=== PATIENT | male | born 1955 | race Caucasian/White ===

== ENCOUNTER 2022-03-13 10:37 | Emergency (ER) | payer MEDICARE, SELFPAY ==
[2022-03-13 10:45] VITALS: BP 126/87; PULSE 82; RESP 20; TEMP 36.7; O2SAT 94; BMI 26.8
--- NOTE | 2022-03-13 11:04 | CT_ITS ---
WS: [id number] CT head wo con* [id number] REASON FOR EXAM: headache IV CONTRAST ADMINISTERED: None. TOTAL EXAM DLP: 1336.[address] scans at [facility] use at least one of these dose optimization techniques: automat ed exposure control; mA and/or kV adjustment per patient size (includes targeted exams where dose is matched to clinical indication); or iterative reconstruction. FINDINGS: No midline shift or other significant mass effect. No findings of intracranial hemorrhage. No acute brain parenchymal abnormality. Normal CSF spaces. Base of skull and calvarium are intact. CT/CT head wo con* [id number] IMPRESSION: No acute intracranial abnormality. Incidentally noted is mild/moderate mucosal thickening in the ethmoid and sphen oid sinuses compatible with inflammatory sinus disease. Visualized portions of maxillary sinuses are normal. Frontal sinuses are normal. No air-fluid levels.
--- NOTE | 2022-03-13 11:34 | ED_ITS ---
HPI - General Adult General: Chief complaint: Headache Stated complaint: migraines Time Seen by Provider: 03/13/22 11:07 History of Present Illness: Patient is a 66-year-old male with history of migraine with aura presenting to the emergency with complaints of bilateral neck pain and headache with photophobia and nausea/vomiting. Patient tells me since. Triage note reported headache started 2 days ago but patient reported that yesterday when he woke up. Since then, patient has had debilitating headache on both sides of his head. Patient denies any family history of aneurysm. He denies any focal neurological deficit. Patient says that the pain is very similar to his previous episodes of migraine except is mildly more severe. Patient denies any rash, fever/chills, history of IV drug use, diabetes or immunosuppression. Patient has no other focal complaints today including nausea/vomiting, fever/chill, chest pain, shortness of breath, abdominal pain, dysuria/hematuria/polyuria, diarrhea/melena/hematochezia. Onset: yesterday morning Duration:1 day Location: home Severity:moderate Associated symptoms: Reports nausea and vomiting; Deny chest pain, dyspnea, rash or palpitations Review of Systems Const: Denies: fever(s) or chills Eyes: Denies: change in vision ENMT: Denies: mouth pain Card: Denies: chest pain or palpitations Resp: Denies: dyspnea or non-productive cough GI: Reports: nausea and vomiting; Denies: abdominal pain or diarrhea : Denies: dysuria Musc: Denies: extremity pain Skin/Breast: Denies: rash or new lesions Neuro: Reports: other (+headache/photophobia); Denies: weakness in extremities Psych: Reports: other (Normal mood) Efrem/Lymph: Denies: easy bruising PFS ED PFSH: Medical History Migraine Social History Smoking and tobacco status: current every day smoker Alcohol intake: never Substance/Drug Use: never Physical Exam Const: COMMON NORMALS: alert HENMT: COMMON NORMALS: atraumatic HEAD & SCALP: atraumatic MOUTH: moist mucous membranes not abnormal Eye: COMMON NORMALS: EOMs intact bilaterally and conjunctivae normal CONJUNCTIVA: Yes conjunctivae normal Neck/C-Spine: COMMON NORMALS: full ROM and supple OTHER: No meningismu signs No nuchal rigidity Resp: COMMON NORMALS: normal respiratory effort and clear to auscultation bilaterally AUSCULTATION: clear to auscultation bilaterally Cardio: COMMON NORMALS: regular rate RATE: regular rate GI: COMMON NORMALS: Soft to palpation and non-tender PALPATION: Yes Soft to palpation Extremity: COMMON NORMALS: full ROM Neuro: SENSORIUM/ORIENTATION: Yes alert MOTOR EXAM: No Abnormal motor strength present and Other motor observations present (no focal motor deficits) OTHER: Mental status? Awake, alert, and oriented to self, year, month, location, and situation.? Following simple axial and appendicular commands.? Has appropriate fund of knowledge, comprehension, and insight.? Able to recall and understands pertinent aspects of medical history and current treatment status.? ? Language? Speech is fluent without word-finding difficulties.? Intact naming, expression, hr receptionist, and repetition.? ? Cranial nerves? 2,3,4,6: PERRL, EOMI with no nystagmus. 5: Intact sensation to light touch, symmetric? 7: Smile symmetrical, no facial droop.? 8: Hearing grossly intact.? 9,10: Normal palate movement.? 11: Normal strength in trapezius bilaterally 12: Tongue protrudes midline.? ? Motor examination? Normal bulk & tone. Strength as follows (R/L): Delts (5/5), Biceps (5/5), Triceps (5/5), Wrist ext (5/5), hip flexors (5/5), plantarflexors (5/5), dorsiflexors (5/5). ? Sensation? Light Touch: Grossly intact and equal in upper and lower extremities bilaterally? Romberg: Negative.? Distal joint position sense intact ? Coordination? Vktjmk-au-hant-finger movements intact without dysmetria or past-pointing.? Rapid fingertaps: preserved amplitude without decriment.? No tremor, myoclonus or truncal ataxia.? ? Gait/stance? Steady, normal narrow base gait with appropriate arm swing and turning.? Tandem gait without hesitation or loss of balance. Psych: COMMON NORMALS: speech normal SPEECH: Yes normal speech MOOD & AFFECT: Yes euthymic mood Course Vital Signs: Vital signs: Vital Signs Temperature 98.1 F 03/13/22 10:45 Pulse Rate 82 03/13/22 10:45 Respiratory Rate 16 03/13/22 13:05 Blood Pressure 126/87 03/13/22 10:45 Pulse Oximetry 94 03/13/22 10:45 Oxygen Delivery Me thod 03/13/22 10:45 MDM - General Adult Medical Decision Making Patient is a 66-year-old male with history of migraine with aura presenting to the emergency with complaints of bilateral neck pain and headache with photophobia and nausea/vomiting since yesterday morning. Patient has no nuchal rigidity on physical exam. Neurological exam is unremarkable. Patient is AAOx3 with complaints of mild headache currently 5 out of 10. Patient received IVF, Benadryl, Reglan, and tylenol with improvement in pain. He is sleeping comfortable in the the chair, and reports his headache is improved. Given increased CAD, CP CT scan did not show any focal pathologies. I doubt that this is subarachnoid bleed given the fact the patient has not had worse headache of his life, headaches associate with other symptoms, has no family history of aneurysm. Incidental findings of sinus disease discussed extensively with patient. Patient received a copy of the CT report with the documented findings. Patient is instructed to follow up urgently with specialists. Rx: Magnesium oxide, Tylenol, Reglan as needed for headache Disposition: Discharge. Patient counseled regarding diagnostic impression, treatment plan. Patient given ED strict return precautions to return for continuation, worsening, or development of new symptoms. Instructed to f/u w/ PCP regarding symptoms today. Patient verbalized understanding. Lab Data : 03/13/22 11:51 03/13/22 12:[address] 03/13/22 11:04 IMPRESSION: No acute intracranial abnormality. Incidentally noted is mild/moderate mucosal thickening in the ethmoid and sphenoid sinuses compatible with inflammatory sinus disease. Visualized portions of maxillary sinuses are normal. Frontal sinuses are normal. No air-fluid levels. Laboratory Results WBC 5.5 10^3/uL (4.0-10.0) 03/13/22 11:51 RBC 4.75 10^6/uL (4.1-5.3) 03/13/22 11:51 Hgb 14.0 g/dL (11.7-16.6) 03/13/22 11:51 Hct 42.5 % (42.0-52.0) 03/13/22 11:51 MCV 89.5 fl (80-94) 03/13/22 11:51 MCH 29.5 pg (28.0-34.0) 03/13/22 11:51 MCHC 32.9 g/dL (30.0-36.0) 03/13/22 11:51 RDW 12.5 % (12.1-15.1) 03/13/22 11:51 Plt Count 152 10^3/cmm (130-400) 03/13/22 11:51 MPV 10.8 fL (7.4-10.4) H 03/13/22 11:51 Neut % (Auto) 69.8 % 03/13/22 11:51 Lymph % (Auto) 21.2 % 03/13/22 11:51 [place] % (Auto) 7.3 % 03/13/22 11:51 Eos % (Auto) 1.1 % 03/13/22 11:51 Baso % (Auto) 0.4 % 03/13/22 11:51 Neut # (Auto) 3.82 10^3/uL (1.8-7.7) 03/13/22 11:51 Lymph # (Auto) 1.2 10^3/uL (0.8-4.8) 03/13/22 11:51 [place] # (Auto) 0.4 10^3/uL (0.2-0.9) 03/13/22 11:51 Eos # (Auto) 0.1 10^3/uL (0.0-0.8) 03/13/22 11:51 Baso # (Auto) 0.0 10^3/uL (0.0-0.1) 03/13/22 11:51 Nucleated RBC % (auto) 0 % 03/13/22 11:51 Nucleated RBCs # 0.0 /100WBC 03/13/22 11:51 Sodium Cancelled 03/13/22 11:51 Potassium Cancelled 03/13/22 11:51 Chloride Cancelled 03/13/22 11:51 Carbon Dioxide Cancelled 03/13/22 11:51 Anion Gap Cancelled 03/13/22 11:51 BUN Cancelled 03/13/22 11:51 Creatinine Cancelled 03/13/22 11:51 GFR Calculation Cancelled 03/13/22 11:51 Glucose Cancelled 03/13/22 11:51 Calculated Osmolality Cancelled 03/13/22 11:51 Calcium Cancelled 03/13/22 11:51 Imaging Data Other Imaging: Radiologist's impression: Close Head CT (Signed) Wyatt Easton Jr - 03/13/22 Launch?Image [address] [place] [address] CT Scan Report Signed Patient: Jose Starr Unit #: [id number] : 1955 Age/Sex: 66 / M ADM Date: 03/13/22 Loc: ER Room/Bed: Attending Dr: Ordering Provider/Ordering MD: Vasiliy Whittington MD Date of Service: 03/13/22 Procedure(s): CT head wo con* [id number] Accession Number(s): [id number] Report Number: [id number] WS: [id number] CT head wo con* [id number] REASON FOR EXAM: headache IV CONTRAST ADMINISTERED: None. TOTAL EXAM DLP: 1336.[address] scans at [facility] use at least one of these dose optimization techniques: automated exposure control; mA and/or kV adjustment per patient size (includes targeted exams where dose is matched to clinical ind ication); or iterative reconstruction. FINDINGS: No midline shift or other significant mass effect. No findings of intracranial hemorrhage. No acute brain parenchymal abnormality. Normal CSF spaces. Base of skull and calvarium are intact. CT/CT head wo con* [id number] IMPRESSION: No acute intracranial abnormality. ? Incidentally noted is mild/moderate mucosal thickening in the ethmoid and sphenoid sinuses compatible with inflammatory sinus disease. Visualized portions of maxillary sinuses are normal. Frontal sinuses are normal. No air-fluid levels. ? Dictated By: Wyatt Easton Jr, MD Signed By: Wyatt Easton Jr, MD Signed Date/Time: 03/13/22 1153 DD/ 1146 Discharge Plan Discharge Patient Disposition: Home Clinical Impression: Headache Condition: Stable Prescriptions: New acetaminophen 500 mg tablet 500 mg PO Q6H PRN (Reason: pain) 5 Days Qty: 20 0RF Reglan 5 mg tablet 5 mg PO BID PRN (Reason: nausea and vomiting) 5 Days Qty: 10 0RF magnesium oxide 400 mg magnesium capsule 400 mg PO DAILY PRN (Reason: headache) 10 Days Qty: 10 0RF Discharge Orders: Discharge ED (Routine); Ordered 03/13/22 Ordered By: Vasiliy Whittington Discharge Diet: Advance as tolerated Discharge Activity: Increase activity as tolerated Patient Instructions: Acute Headache (ED) Activity Restrictions/Additional Instructions: Please come back to the emergency room you have any fever chills, worsening headache, focal weakness, nausea/vomiting, inability to perform daily activity, or any new concerning complaints. Here's a copy of your CT report: Close Head CT (Signed) Wyatt Easton Jr - 03/13/22 Launch?Image [address] [address] [address] Scan Report Signed Patient: Jose Starr Unit #: [id number] : 1955 Age/Sex: 66 / M ADM Date: 03/13/22 Loc: ER Room/Bed: Attending Dr: Ordering Provider/Ordering MD: Vasiliy Whittington MD Date of Service: 03/13/22 Procedure(s): CT head wo con* [id number] Accession Number(s): [id number] Report Number: [id number] WS: [id number] CT head wo con* [id number] REASON FOR EXAM: headache IV CONTRAST ADMINISTERED: None. TOTAL EXAM DLP: 1336.[address] scans at [facility] use at least one of these dose optimization techniques: automated exposure control; mA and/or kV adjustment per patient size (includes targeted exams where dose is matched to clinical indication); or iterative reconstruction. FINDINGS: No midline shift or other significant mass effect. No findings of intracranial hemorrhage. No acute brain parenchymal abnormality. Normal CSF spaces. Base of skull and calvarium are intact. CT/CT head wo con* [id number] IMPRESSION: No acute intracranial abnormality. ? Incidentally noted is mild/moderate mucosal thickening in the ethmoid and sphenoid sinuses compatible with inflammatory sinus disease. Visualized portions of maxillary sinuses are normal. Frontal sinuses are normal. No air-fluid levels. ? Dictated By: Wyatt Easton Jr, MD Signed By: Wyatt Easton Jr, MD Signed Date/Time: 03/13/22 1153 DD/ 1146 Coding Level of Care Code ED Automated Process Operator for Chg Fwd Exam Comprehensive
[2022-03-13 11:57] LABS: Basophils % 0.4 %; Eosinophils # 0.1 10^3/uL (0.0-0.8); Eosinophils % 1.1 %; Hematocrit 42.5 % (42.0-52.0); Lymphocytes # 1.2 10^3/uL (0.8-4.8); Lymphocytes % 21.2 %; Mean Corpuscular HGB Conc 32.9 g/dL (30.0-36.0); Mean Corpuscular Hemoglobin 29.5 pg (28.0-34.0); Mean Corpuscular Volume 89.5 fl (80-94); Mean Platelet Volume 10.8 fL (7.4-10.4); Monocytes # 0.4 10^3/uL (0.2-0.9); Monocytes % 7.3 %; Neutrophils # 3.82 10^3/uL (1.8-7.7); Neutrophils % 69.8 %; Nucleated Red Blood Cells % 0 %; Platelet Count 152 10^3/cmm (130-400); Red Blood Count 4.75 10^6/uL (4.1-5.3); Red Cell Distribution Width 12.5 % (12.1-15.1); White Blood Count 5.5 10^3/uL (4.0-10.0)
[2022-03-13] MEDS: sodium chloride 0.9% 1,000 ML 999 ML IV (12:09)
[2022-03-13] MEDS: diphenhydrAMINE 50 mg/mL SDV 1mL IVP (12:09)
[2022-03-13] MEDS: acetaminophen 500 mg Tablet PO (12:09)
[2022-03-13] MEDS: metoclopramide 5 mg/mL SDV 2 mL 10 MG IVP (12:09)
[2022-03-13 13:05] VITALS: RESP 16
[2022-03-13] MEDS: morphine 4 mg/mL SDV 1 mL IVP (13:05)
== END 2022-03-13 13:46 | disposition home or self-care (01) ==
PROVIDERS: Emergency Provider Emergency Medicine
DX: G43.909 Migraine, unspecified, not intractable, without status migrainosus (principal)
CPT/HCPCS: 36415; 70450; 85025; 96361; 96374; 96375; 99285; J1200; J2270; J2765; J7030

== ENCOUNTER 2022-07-10 23:35 | Observation (INO) | payer MEDICARE, SELFPAY ==
[2022-07-10 23:36] VITALS: BP 102/74; PULSE 90; RESP 18; TEMP 37.3; O2SAT 92
--- NOTE | 2022-07-10 23:38 | CTR_ITS ---
PROCEDURE INFORMATION: Exam: CT Head Without Contrast Exam date and time: 07/10/2022 11:53 PM Age: 66 years old Clinical indication: Other: Seizure TECHNIQUE: Imaging protocol: Computed tomography of the head without contrast. Radiation optimization: All CT scans at this facility use at least one of these dose optimization techniques: automated exposure control; mA and/or kV adjustment per patient size (includes targeted exams where dose is matched to clinical indication); or iterative reconstruction. COMPARISON: CT head wo con* [id number] 03/13/2022 11:39 AM RADIATION DOSE METRICS: Total DLP (mGy-cm): 1379.52 FINDINGS: Brain: Normal. No hemorrhage. Unremarkable white matter. No mass effect. Cerebral ventricles: No ventriculomegaly. Paranasal sinuses: The left maxillary sinus is nearly completely opacified with air-fluid level and frothy secretions. Moderate right sphenoid sinus mucosal thickening, also with air-fluid level. Mastoid air cells: Visualized mastoid air cells are well aerated. Orbital cavities: Bilateral lens replacements. Bones/joints: Unremarkable. No acute fracture. Soft tissues: Unremarkable. CT/CT head wo con* [id number] IMPRESSION: 1. No acute intracranial abnormality. 2. Acute left maxillary and right sphenoid sinusitis changes.
--- NOTE | 2022-07-10 23:38 | W.ED.SEIZURE ---
HPI - Seizure General: Chief Complaint: Seizure Stated Complaint: seizure Time Seen by Provider: 07/10/22 23:38 Source: patient and EMS Mode of arrival: EMS Limitations: no limitations History of Present Illness: HPI Narrative: 66-year-old male has a history of seizures he takes Tegretol for his seizures he did not take his Tegretol tonight. States has been feeling ill over the last 2 days with some flulike illnesses with body aches along with vomiting and diarrhea he seizure was roughly 1 hour ago in the bathroom. Relatives lasted roughly 2 minutes he was postictal with EMS he is now waking up answering my questions denies any pain anywhere he has had the vomiting diarrhea no known fevers denies cough. Associated symptoms: Deny chest pain, chills or fever(s) Review of Systems Const: Denies: fever(s), chills, body aches or change in appetite Eyes: Denies: blurry vision or eye discomfort ENMT: Denies: throat pain or dental pain Card: Denies: chest pain Resp: Denies: dyspnea GI: Denies: abdominal pain, nausea, vomiting or diarrhea : Denies: dysuria Musc: Denies: neck pain or back pain Skin/Breast: Denies: rash Neuro: Reports: seizure-like activity Psych: Denies: depression Efrem/Lymph: Denies: easy bruising All/Imm: Denies: urticaria PFSH ED PFSH: Medical History Migraine Family History (Updated 07/11/22 @ 02:12 by Kennedy Helm MD) Mother Dementia Social History (Updated 07/11/22 @ 02:12 by Kennedy Helm MD) Smoking and tobacco status: current every day smoker Alcohol intake: never Substance/Drug Use: never Physical Exam Const: COMMON NORMALS: no acute distress, patient oriented x3 and healthy appearing HENMT: COMMON NORMALS: normocephalic and atraumatic HEAD & SCALP: normocephalic and atraumatic Eye: COMMON NORMALS: Equal, round and reactive pupils present and EOMs intact bilaterally PUPIL: Yes Equal, round and reactive pupils present Neck/C-Spine: COMMON NORMALS: full ROM and supple Chest: COMMONS NORMALS: normal inspection of the chest and normal palpation of entire chest wall Resp: COMMON NORMALS: normal respiratory effort, No retractions, No use of accessory muscles and clear to auscultation bilaterally AUSCULTATION: clear to auscultation bilaterally Cardio: COMMON NORMALS: regular rate, regular rhythm and No murmurs present (Cardio) RATE: regular rate RHYTHM: regular rhythm GI: COMMON NORMALS: Normal to inspection, nondistended, normoactive bowel sounds present, Soft to palpation, non-tender and no masses PALPATION: Yes Soft to palpation Extremity: COMMON NORMALS: normal to inspection and full ROM Neuro: COMMON NORMALS: patient oriented x3, moves all extremities and no focal motor deficits Psych: COMMON NORMALS: mental status grossly normal, Normal thought process present and cooperative THOUGHT PROCESS: Normal thought process present Skin: COMMON NORMALS: no rashes or lesions noted and no wounds GENERAL SKIN EXAM: no rashes or lesions noted Course Vital Signs: Vital signs: Vital Signs Temperature 99.2 F 07/10/22 23:36 Pulse Rate 81 07/11/22 02:00 Respiratory Rate 14 07/11/22 02:00 Blood Pressure 122/75 07/11/22 02:00 Pulse Oximetry 95 07/11/22 02:00 Oxygen Delivery Me thod 07/11/22 02:00 Oxygen Flow Rate 2 07/11/22 02:00 MDM - Seizure MDM Narrative Medical decision making narrative: Your along withPatient presents here with like illness x-ray shows bilateral pneumonia as well. Patient had a seizure at home he did have another seizure here as well spoke to the hospitalist will admit at this time patient has been stable while here. Lab Data 07/10/22 23:30 07/10/22 23:30 Labs: Radiology Impressions Head CT 07/10/22 23:38 IMPRESSION: 1. No acute intracranial abnormality. 2. Acute left maxillary and right sphenoid sinusitis changes. Chest X-Ray 07/10/22 23:39 IMPRESSION: 1. Bilateral lower lobe infiltrates, suspicious for pneumonia. 2. Large hiatal hernia. 3. Mild cardiomegaly. Laboratory Results WBC 8.4 10^3/uL (4.0-10.0) 07/10/22 23:30 RBC 5.11 10^6/uL (4.1-5.3) 07/10/22 23:30 Hgb 15.3 g/dL (11.7-16.6) 07/10/22 23: Hct 47.3 % (42.0-52.0) 07/10/22: MCV 92.6 fl (80-94) 07/10/22: MCH 29.9 pg (28.0-34.0) 07/10/22 MCHC 32.3 g/dL (30.0-36.0) 07/10/22 RDW 12.6 % (12.1-15.1) 07/10/22 Plt Count 199 10^3/cmm (130-400) 07/10/22: MPV 10.9 fL (7.4-10.4) H 07/10/22: Neut % (Auto) 89.2 % 07/10/22: Lymph % (Auto) 4.7 % 07/10/22: [place] % (Auto) 5.0 % 07/10/22: Eos % (Auto) 0.5 % 07/10/22 Baso % (Auto) 0.2 % 07/10/22 Neut # (Auto) 7.46 10^3/uL (1.8-7.7) 07/10/22: Lymph # (Auto) 0.4 10^3/uL (0.8-4.8) L 07/10/22: [place] # (Auto) 0.4 10^3/uL (0.2-0.9) 07/10/22: Eos # (Auto) 0.0 10^3/uL (0.0-0.8) 07/10/22: Baso # (Auto) 0.0 10^3/uL (0.0-0.1) 07/10/22 Nucleated RBC % (auto) 0 % 07/10/22 Nucleated RBCs # 0.0 /100WBC 07/10/22: Sodium 136 mmol/L (136-145) 07/10/22: Potassium 4.5 mmol/L (3.5-5.1) 07/10/22: Chloride 100 mmol/L (98-107) 01/13/23 23:30 Carbon Dioxide 23 mmol/L (22-29) 07/10/22 23:30 Anion Gap 17.5 (5-19) 07/10/22 23:30 BUN 17 mg/dL (8-23) 07/10/22 23:30 Creatinine 1.3 mg/dL (0.7-1.2) H 07/10/22 23:30 GFR Calculation 55.4 mL/min (90-130) L 07/10/22 23:30 Glucose 130 mg/dL (65-115) H 07/10/22 23:30 Calculated Osmolality 285 mOsm/kg (285-295) 07/10/22 23:30 Calcium 8.9 mg/dL (8.5-10.5) 07/10/22 23:30 Total Bilirubin 0.6 mg/dL (0.15-1.2) 07/10/22 23:30 AST 23 U/L (0-40) 07/10/22 23:30 ALT 16 U/L (0-41) 07/10/22 23:30 Alkaline Phosphatase 81 U/L (40-130) 07/10/22 23:30 Total Protein 8.9 g/dL (6.6-8.7) H 07/10/22 23:30 Albumin 4.8 g/dL (3.5-5.2) 07/10/22 23:30 Globulin 4.1 g/dL (1.3-4.6) 07/10/22 23:30 Influenza Type A Ag negative (Negative) 07/11/22 00:05 Influenza Type B Ag negative (Negative) 07/11/22 00:05 SARS-CoV-2 Ag (Rapid) negative (Negative) 07/11/22 00:05 EKG Data EKG 1: Attestation: I personally reviewed and interpreted this EKG as follows: EKG interpretation date: 07/10/22 EKG interpretation time: 23:42 Interpretation: nsr hr [address] or t wave abnormalities qrs 93 qtc 361 Discharge Plan Discharge Patient Disposition: Admitted As Inpatient Admit Provider: Kennedy Helm Clinical Impression: Generalized seizure, Diarrhea, Pneumonia Condition: Stable Coding Level of Care Code ED [place] for Chg Fwd Exam Comprehensive
--- NOTE | 2022-07-10 23:39 | XRR_ITS ---
PROCEDURE INFORMATION: Exam: XR Chest Exam date and time: 07/10/2022 11:51 PM Age: 66 years old Clinical indication: Other: Seizure TECHNIQUE: Imaging protocol: Radiologic exam of the chest. Views: 1 view. COMPARISON: No relevant prior studies available. FINDINGS: Lungs: Bilateral lower lobe infiltrates. Pleural spaces: Unremarkable. No pleural effusion. No pneumothorax. Heart/Mediastinum: Large hiatal hernia. Mild cardiomegaly. Bones/joints: Unremarkable. XR/XR chest 1V portable [id number] IMPRESSION: 1. Bilateral lower lobe infiltrates, suspicious for pneumonia. 2. Large hiatal hernia. 3. Mild cardiomegaly.
[2022-07-10 23:47] LABS: Basophils % 0.2 %; Eosinophils % 0.5 %; Hematocrit 47.3 % (42.0-52.0); Hemoglobin 15.3 g/dL (11.7-16.6); Lymphocytes # 0.4 10^3/uL (0.8-4.8); Lymphocytes % 4.7 %; Mean Corpuscular HGB Conc 32.3 g/dL (30.0-36.0); Mean Corpuscular Hemoglobin 29.9 pg (28.0-34.0); Mean Corpuscular Volume 92.6 fl (80-94); Mean Platelet Volume 10.9 fL (7.4-10.4); Monocytes # 0.4 10^3/uL (0.2-0.9); Neutrophils # 7.46 10^3/uL (1.8-7.7); Neutrophils % 89.2 %; Nucleated Red Blood Cells % 0 %; Platelet Count 199 10^3/cmm (130-400); Red Blood Count 5.11 10^6/uL (4.1-5.3); Red Cell Distribution Width 12.6 % (12.1-15.1); White Blood Count 8.4 10^3/uL (4.0-10.0)
[2022-07-11] VITALS (55 sets, daily range): BP systolic 86–132; BP diastolic 54–81; PULSE 59–90; RESP 6–32; TEMP 36.8–38.4; O2SAT 72–98; BMI 27.6
[2022-07-11] MEDS: sodium chloride 0.9% 1,000 ML 999 ML IV ×2 (00:05→01:30)
[2022-07-11] MEDS: ondansetron 2 mg/ML SDV 2 mL 4 MG IVP (00:05)
[2022-07-11] MEDS: carBAMazepine 200 mg Tablet PO (00:05)
[2022-07-11 00:09] LABS: Alanine Aminotransferase 16 U/L (0-41); Albumin Level 4.8 g/dL (3.5-5.2); Alkaline Phosphatase 81 U/L (40-130); Anion Gap 17.5 (5-19); Aspartate Amino Transferase 23 U/L (0-40); Blood Urea Nitrogen 17 mg/dL (8-23); Calcium 8.9 mg/dL (8.5-10.5); Carbon Dioxide 23 mmol/L (22-29); Chloride 100 mmol/L (98-107); Globulin 4.1 g/dL (1.3-4.6); Glomerular Filtration Rate 55.4 mL/min (90-130); Glucose 130 mg/dL (65-115); Osmolality Calculated 285 mOsm/kg (285-295); Potassium 4.5 mmol/L (3.5-5.1); Sodium 136 mmol/L (136-145); Total Bilirubin 0.6 mg/dL (0.15-1.2); Total Protein 8.9 g/dL (6.6-8.7)
[2022-07-11 00:39] LABS: SARS Covid-2 Antigen negative (Negative)
[2022-07-11 00:40] LABS: Influenza A by IFA negative (Negative); Influenza B by IFA negative (Negative)
--- NOTE | 2022-07-11 01:10 | PC.NURSE ---
Found Dr Ramirez and Romeo CUETO at pt's bedside, pt reportedly had a seizure.
[2022-07-11] MEDS: LORazepam 2 mg/mL INJ 1 mL IVP (01:11)
[2022-07-11] MEDS: cefTRIAXone 1,000 MG in sodium chloride 0.9% (plus) 50 ML 100 MG IV (01:50)
--- NOTE | 2022-07-11 02:08 | P.HP_ITS ---
Providers/Chief Complaint Primary Care Provider: Michael Chapman DO Chief Complaint: seizure History of Present Illness Jose Starr is a 66 year old male with a past medical history seizures, who presents to [facility] for breakthrough seizures. Currently patient is alert, but falls back asleep, received Ativan for breakthrough seizure, does not follow commands, on 2 L, normotensive, pulse 81 respiratory 14 temperature 98.2. Most of the history was provided by patient's partner at bedside, she tells me that patient has a long history of seizures, since he was in the , he is supposed to be taking carbamazepine, and Keppra. She tells me that yesterday she had told her that he might have missed a dose of 1 his medications. She also tells me that the whole family has been sick, no granddaughter has been sick so she got sick and now he has been on same, his main complaint was his diarrhea, no nausea, no vomiting he is able to keep down solids and liquids, no cough, no fever complaints, no smoking, no drug use, no alcohol use. He had 1 breakthrough seizure at home, thus ambulance was called out to his home, here in the emergency room he had 1 breakthrough seizure received Ativan. According to nursing staff, when he arrived, he was alert to person, to place he followed commands, able to carry out conversations, but since his seizure he has been postictal and after receiving Ativan Review of Systems General: Reports: ROS unobtainable due to medical condition and ROS unobtainable due to mental status Medications/Allergies Allergies Allergy/AdvReac Type Severity Reaction Status Date / Time No Known Allergies Allergy Verified 07/11/22 00:06 PFSH Acute PFSH: Medical History Migraine Family History (Updated 07/11/22 @ 02:12 by Kennedy Helm MD) Mother Dementia Social History (Updated 07/11/22 @ 02:12 by Kennedy Helm MD) Smoking and tobacco status: current every day smoker Alcohol intake: never Substance/Drug Use: never Vitals/I&O/Wt Last Vital Signs Temp 99.2 F 07/10/22 23:36 Pulse 81 07/11/22 02:00 Resp 14 07/11/22 02:00 BP 122/75 07/11/22 02:00 Pulse Ox 95 07/11/22 02:00 O2 Del Method 07/11/22 02:00 O2 Flow Rate 2 07/11/22 02:00 07/10/22 07/10/22 07/11/22 14:59 22:59 06:59 Intake Total 1110 / 1110 Balance 1110 / 1110 Physical Exam Const: COMMON NORMALS: no acute distress EXAM LIMITATIONS: altered mental status ORIENTATION/CONSCIOUSNESS: Yes awake and Yes confused; not oriented to person, not oriented to place and not oriented to time HENMT: COMMON NORMALS: normocephalic HEAD & SCALP: normocephalic Eye: COMMON NORMALS: Equal, round and reactive pupils present Neck/C-Spine: COMMON NORMALS: full ROM and no lymphadenopathy Chest: COMMONS NORMALS: normal inspection of the chest Resp: COMMON NORMALS: normal respiratory effort, No retractions, No use of accessory muscles and clear to auscultation bilaterally AUSCULTATION: clear to auscultation bilaterally Cardio: COMMON NORMALS: regular rate, regular rhythm, S1 normal heart sound present and S2 normal heart sound present RATE: regular rate RHYTHM: regular rhythm HEART SOUNDS: S1 normal heart sound present and S2 normal heart sound present GI: COMMON NORMALS: Normal to inspection, nondistended, normoactive bowel sounds present, Soft to palpation and non-tender PALPATION: Yes Soft to palpation Extremity: COMMON NORMALS: no calf tenderness and no pedal edema Neuro: OTHER: Unable to follow neurologic testing Data 07/10/22 23:30 07/10/22 23:30 Micro: Microbiology 07/11/22 01:45 Blood Culture - Preliminary Blood SPECIMEN COLLECTED 07/11/22 01:40 Blood Culture - Preliminary Blood SPECIMEN COLLECTED A&P Assessment and plan (1) Generalized seizure: (2) Pneumonia: (3) Diarrhea: (4) Hypoxia: (5) NIGEL (acute kidney injury): Plan Breakthrough seizure -Receiving 1 g of Keppra -Ativan as needed -Continue Tegretol -Continue Keppra -Seizure precautions, neurochecks, aspiration precautions -IV fluids -Monitor mentation -Full code -Lovenox for DVT prophylaxis Pneumonia with hypoxia, requiring 2 L -Continue Rocephin, azithromycin -Blood cultures NIGEL, IV fluids Dehydration IV fluids Diarrhea, IV fluids, stool studies Attestations Medical Necessity Statement*: Patient requires hospitalization due to breakthrough seizures, pneumonia, hypoxia, outpatient with observation Coding Level of Care Code Acute Code for Chg Fwd Diagnoses Generalized seizure R56.9 Pneumonia J18.9 Diarrhea R19.7 Hypoxia R09.02 NIGEL (acute kidney injury) N17.9
[2022-07-11] MEDS: azithromycin 500 MG in sodium chloride 0.9% 250 ML 250 MG IV (02:29)
[2022-07-11 02:32] LABS: Lactic Sepsis W/Reflex 1.9 mmol/L (0.5-2.2)
[2022-07-11 02:42] LABS: Procalcitonin 0.52 ng/mL (0-0.5); Thyroid Stimulating Hormone 1.14 uIU/mL (0.27-4.20)
[2022-07-11 02:51] LABS: Ammonia 88 umol/L (16-60)
[2022-07-11] MEDS: pantoprazole 40 mg SDV IVP (03:17)
[2022-07-11] MEDS: sodium chloride 0.9% 1,000 ML 100 ML IV (03:20)
--- NOTE | 2022-07-11 03:28 | PC.NURSE ---
Patient admitted to ICU 4. Patient is lethargic. Responds to verbal stimulus. Oriented to name, , location, and year. Patient complaining of left should pain. Loose stools. Sample previously sent to lab in ER. Oxygen sats 96% on 2 liters NC. Doctor notified of patient arrival with temp of 101.2 and complaint of pain in left shoulder. Seizure precautions with suctions set up with HOB 30 degrees.
[2022-07-11] MEDS: enoxaparin 40 mg/0.4 mL Syringe SUBCUT (04:20)
[2022-07-11] MEDS: morphine 4 mg/mL SDV 1 mL 2 MG IVP ×4 (04:50→18:52)
[2022-07-11] MEDS: acetaminophen 1,000 MG/100 ML PIGGYBACK 400 MG IV (04:50)
[2022-07-11] MEDS: levETIRAcetam 500 mg Tablet PO ×3 (07:54→23:33)
--- NOTE | 2022-07-11 08:48 | XRR_ITS ---
PROCEDURE INFORMATION: Exam: XR Left Shoulder Exam date and time: 07/11/2022 8:54 AM Age: 66 years old Clinical indication: Injury or trauma; Fall; Blunt trauma (contusions or hematomas); Shoulder; Left; Additional info: Fell at home onto L shoulder TECHNIQUE: Imaging protocol: Radiologic exam of the Left shoulder. Views: One view. COMPARISON: CR (CHEST, ) 07/10/2022 11:51 PM FINDINGS: Bones/joints: Fracture of the lateral left clavicle. The acromioclavicular joint maintains normal AP alignment on this single view. The glenohumeral joint maintains normal AP alignment on this single view. Lungs: Visualized portions of the chest are normal. Soft tissues: Unremarkable. XR/XR shoulder LT 1V [id number] IMPRESSION: Fracture of the lateral left clavicle.
[2022-07-11] MEDS: carBAMazepine 200 mg Tablet 400 MG PO ×2 (10:08→18:06)
--- NOTE | 2022-07-11 10:58 | PM.MISC ---
Miscellaneous Note Note: Code 10 was called for belligerent behavior he was given morphine Patient is very sedated however able to answer my questions and follow commands Nonfocal neuro exam Significant other is stating that he is mostly groggy and chews tobacco He is able to follow commands Hemodynamically stable febrile event noted overnight Currently on 2 L Afebrile this morning Abdomen soft I have asked ICU nurse to check for urine retention No signs of meningitis Afebrile this morning Concern for pneumonia however will need to rule out urinary tension and UTI as well Patient was complaining of left shoulder pain, requested shoulder x-ray which is showing fracture of left lateral clavicle which will need conservative management with sling Opioids and bowel regimen Full code for now Will start regular diet once he is more awake and alert Currently I am keeping him on mechanical soft diet For simple febrile episode and concern for pneumonia continue ceftriaxone 1 g
[2022-07-11] MEDS: nicotine 21 mg Patch 1 PATCH TRANSDERMA (11:15)
[2022-07-11 12:03] LABS: Urine Appearance Clear (CLEAR); Urine Color Dark Yellow (Yellow)
[2022-07-11 12:04] LABS: Add Urine Culture? No; Add Urine Microscopic? YES; Bacteria Urine 1+ /hpf; Bilirubin Urine 1+ (Negative); Blood Urine Neg (Negative); Glucose Urine UA Norm (Normal); Ketones Urine 1+ (Negative); Leukocyte Esterase Urine Negative (Negative); Mucus Urine 1+ /hpf; Nitrate Urine Negative (Negative); Protein Urine Trace (Negative); Squamous Epithelial Cell Urine 0-4 /hpf (0-5); Urobilinogen Urine Norm (Negative); WBC Urine RARE /hpf (0-5); pH Urine 5 (5-7)
--- NOTE | 2022-07-11 14:25 | PC.NURSE ---
Patient administered nicotine patch, see MAR for details. Patient family brought patient can of chewing tobacco, patient educated on hospital policy and patch, patient refuses to relinquish tobacco product at this time.
[2022-07-11 14:36] LABS: Magnesium 2.5 mg/dL (1.7-2.3)
[2022-07-11] MEDS: loperamide 2 mg Capsule PO (19:27)
[2022-07-12] MEDS: enoxaparin 40 mg/0.4 mL Syringe SUBCUT (02:21)
[2022-07-12] MEDS: cefTRIAXone 1,000 MG in sodium chloride 0.9% (plus) 50 ML 100 MG IV (02:22)
[2022-07-12 03:08] LABS: Basophils % 0.2 %; Eosinophils # 0.1 10^3/uL (0.0-0.8); Lymphocytes % 22.3 %; Mean Corpuscular HGB Conc 31.6 g/dL (30.0-36.0); Mean Corpuscular Hemoglobin 30.3 pg (28.0-34.0); Mean Platelet Volume 11.3 fL (7.4-10.4); Monocytes # 0.6 10^3/uL (0.2-0.9); Monocytes % 12.9 %; Neutrophils % 62.4 %; Nucleated Red Blood Cells % 0 %; Platelet Count 145 10^3/cmm (130-400); Red Blood Count 3.96 10^6/uL (4.1-5.3); Red Cell Distribution Width 13.1 % (12.1-15.1); White Blood Count 4.5 10^3/uL (4.0-10.0)
[2022-07-12 03:32] LABS: Anion Gap 13.1 (5-19); Blood Urea Nitrogen 16 mg/dL (8-23); Calcium 7.7 mg/dL (8.5-10.5); Carbon Dioxide 19 mmol/L (22-29); Chloride 106 mmol/L (98-107); Glomerular Filtration Rate 84.7 mL/min (90-130); Glucose 93 mg/dL (65-115); Osmolality Calculated 279 mOsm/kg (285-295); Potassium 4.1 mmol/L (3.5-5.1); Sodium 134 mmol/L (136-145)
[2022-07-12 04:00] VITALS: BP 128/73; PULSE 68; RESP 18; TEMP 36.9; O2SAT 94
[2022-07-12 05:28] VITALS: PULSE 62
--- NOTE | 2022-07-12 07:15 | PC.NURSE ---
bedside report received from Renetta
[2022-07-12 08:00] VITALS: BP 135/83; PULSE 66; RESP 15; TEMP 36.6; O2SAT 95
[2022-07-12] MEDS: levETIRAcetam 500 mg Tablet PO (08:58)
[2022-07-12] MEDS: HYDROcodone-acetaminophen 5-325 mg Tablet 1 TAB PO (08:58)
[2022-07-12] MEDS: thiamine 100 mg Tablet PO (08:58)
[2022-07-12] MEDS: carBAMazepine 200 mg Tablet 400 MG PO (08:58)
--- NOTE | 2022-07-12 10:44 | PM.DCS ---
Discharge Providers Date of Admission: 07/11/22 02:23 Date of Discharge: July 12, 2022 Attending Provider at Admission: Kennedy Helm MD Attending Provider at Discharge: Purvi Corbin MD Primary Care Provider: Michael Chapman DO Diagnoses at Discharge Discharge Diagnosis (1) Generalized seizure: Status: Acute (2) Pneumonia: Status: Acute (3) Diarrhea: Status: Acute (4) Hypoxia: Status: Acute (5) NIGEL (acute kidney injury): Status: Acute Reason for Visit Reason for Visit: seizure Hospital Course Hospital Course 66-year old male who was admitted for management of breakthrough seizures, he carries history of epilepsy, he was given antibiotics for pneumonia, required oxygen initially however we were able to wean off oxygen to room air. No breakthrough seizures noted during hospitalization. Patient will resume his home antiepileptic regimen. Levofloxacin prescribed for 5 days. He was hydrated with IV fluids which improved his NIGEL as well. Physical Exam Narrative: Pleasant and cooperative S1, S2 Currently on room air Abdomen soft at the bedside . Discharge Data Studies Completed and Pending Completed Studies During Hospitalization Category Date Time Status CT head wo con* [id number] Stat Cat Scan 07/10/22 23:38 Completed CXRP [XR chest 1V portable [id number]] Stat Exams 07/10/22 23:39 Completed XR shoulder LT 1V [id number] Routine Exams 07/11/22 08:48 Completed Pending at discharge Category Date Time Status Blood Culture Stat Lab 07/11/22 01:45 Results Sputum Culture and Gram Stain Routine Lab 07/11/22 11:02 Uncollected Radiology Impressions Head CT 07/10/22 23:38 IMPRESSION: 1. No acute intracranial abnormality. 2. Acute left maxillary and right sphenoid sinusitis changes. Chest X-Ray 07/10/22 23:39 IMPRESSION: 1. Bilateral lower lobe infiltrates, suspicious for pneumonia. 2. Large hiatal hernia. 3. Mild cardiomegaly. Shoulder X-Ray 07/11/22 08:48 IMPRESSION: Fracture of the lateral left clavicle. Laboratory Results WBC 4.5 10^3/uL (4.0-10.0) 07/12/22 02:19 RBC 3.96 10^6/uL (4.1-5.3) L 07/12/22 02:19 Hgb 12.0 g/dL (11.7-16.6) 07/12/22 02:19 Hct 38.0 % (42.0-52.0) L 07/12/22 02:19 MCV 96.0 fl (80-94) H 07/12/22 02:19 MCH 30.3 pg (28.0-34.0) 07/12/22 02:19 MCHC 31.6 g/dL (30.0-36.0) 07/12/22 02:19 RDW 13.1 % (12.1-15.1) 07/12/22 02:19 Plt Count 145 10^3/cmm (130-400) 07/12/22 02:19 MPV 11.3 fL (7.4-10.4) H 07/12/22 02:19 Neut % (Auto) 62.4 % 07/12/22 02:19 Lymph % (Auto) 22.3 % 07/12/22 02:19 [place] % (Auto) 12.9 % 07/12/22 02:19 Eos % (Auto) 2.0 % 07/12/22 02:19 Baso % (Auto) 0.2 % 07/12/22 02:19 Neut # (Auto) 2.80 10^3/uL (1.8-7.7) 07/12/22 02:19 Lymph # (Auto) 1.0 10^3/uL (0.8-4.8) 07/12/22 02:19 [place] # (Auto) 0.6 10^3/uL (0.2-0.9) 07/12/22 02:19 Eos # (Auto) 0.1 10^3/uL (0.0-0.8) 07/12/22 02:19 Baso # (Auto) 0.0 10^3/uL (0.0-0.1) 07/12/22 02:19 Nucleated RBC % (auto) 0 % 07/12/22 02:19 Nucleated RBCs # 0.0 /100WBC 07/12/22 02:19 Sodium 134 mmol/L (136-145) L 07/12/22 02:19 Potassium 4.1 mmol/L (3.5-5.1) 07/12/22 02:19 Chloride 106 mmol/L (98-107) 07/12/22 02:19 Carbon Dioxide 19 mmol/L (22-29) L 07/12/22 02:19 Anion Gap 13.1 (5-19) 07/12/22 02:19 BUN 16 mg/dL (8-23) 07/12/22 02:19 Creatinine 0.9 mg/dL (0.7-1.2) 07/12/22 02:19 GFR Calculation 84.7 mL/min (90-130) L 07/12/22 02:19 Glucose 93 mg/dL (65-115) 07/12/22 02:19 Calculated Osmolality 279 mOsm/kg (285-295) L 07/12/22 02:19 Lactic Acid 1.9 mmol/L (0.5-2.2) 07/11/22 01:40 Calcium 7.7 mg/dL (8.5-10.5) L 07/12/22 02:19 Magnesium 2.5 mg/dL (1.7-2.3) H 07/11/22 14:00 Total Bilirubin 0.6 mg/dL (0.15-1.2) 07/10/22 23:30 AST 23 U/L (0-40) 07/10/22 23:30 ALT 16 U/L (0-41) 07/10/22 23:30 Alkaline Phosphatase 81 U/L (40-130) 07/10/22 23:30 Ammonia 88 umol/L (16-60) H 07/11/22 02:20 C-Reactive Protein 82.0 mg/L (0.0-4.9) H 07/10/22 23:30 Total Protein 8.9 g/dL (6.6-8.7) H 07/10/22 23:30 Albumin 4.8 g/dL (3.5-5.2) 07/10/22 23:30 Globulin 4.1 g/dL (1.3-4.6) 07/10/22 23:30 Procalcitonin 0.52 ng/mL (0-0.5) H 07/10/22 23:30 TSH 1.14 uIU/mL (0.27-4.20) 07/10/22 23:30 Urine Color Dark yellow (Yellow) 07/11/22 11:35 Urine Appearance Clear (CLEAR) 07/11/22 11:35 Urine pH 5 (5-7) 07/11/22 11:35 Ur Specific [place] 1.020 (1.005-1.030) 07/11/22 11:35 Urine Protein Trace (Negative) 07/11/22 11:35 Urine Glucose (UA) Norm (Normal) 07/11/22 11:35 Urine Ketones 1+ (Negative) H 07/11/22 11:35 Urine Blood Neg (Negative) 07/11/22 11:35 Urine Nitrate Negative (Negative) 07/11/22 11:35 Urine Bilirubin 1+ (Negative) H 07/11/22 11:35 Urine Urobilinogen Norm mg/dL (Negative) 07/11/22 11:35 Ur Leukocyte Esterase Negative (Negative) 07/11/22 11:35 Urine RBC None /hpf (0-2) 07/11/22 11:35 Urine WBC Rare /hpf (0-5) 07/11/22 11:35 Ur Squamous Epith Cells 0-4 /hpf (0-5) H 07/11/22 11:35 Amorphous Sediment Not Reportable 07/11/22 11:35 Urine Bacteria 1+ /hpf (NONE) H 07/11/22 11:35 Urine Mucus 1+ /hpf 07/11/22 11:35 Influenza Type A Ag negative (Negative) 07/11/22 00:05 Influenza Type B Ag negative (Negative) 07/11/22 00:05 SARS-CoV-2 Ag (Rapid) negative (Negative) 07/11/22 00:05 Vitals Last Vital Signs Temp 97.8 F 07/12/22 08:00 Pulse 66 07/12/22 08:00 Resp 15 07/12/22 08:00 BP 135/83 07/12/22 08:00 Pulse Ox 95 07/12/22 08:00 O2 Del Method 07/12/22 08:00 O2 Flow Rate 2 07/11/22 04:00 Discharge Plan Discharge Patient Disposition: Home Condition: Stable Prescriptions: New hydrocodone-acetaminophen 5-325 mg Tablet 1 tab PO Q4H PRN (Reason: Moderate Pain) Qty: 20 0RF Vitamin B-1 (mononitrate) 100 mg Tablet 100 mg PO DAILY Qty: 30 0RF (DME) arm brace Misc See Rx Instructions .Route Qty: 1 0RF Rx Instructions: As directed levofloxacin 750 mg tablet 750 mg PO DAILY 5 Days Qty: 5 0RF Continued Keppra 500 mg Tablet 500 mg PO TID Qty: 90 0RF carbamazepine 200 mg capsule, ER multiphase 12 hr 200 mg PO BID Qty: 60 0RF Discharge Orders: Discharge Order (Routine); Ordered 07/12/22 Ordered By: Purvi Corbin Discharge Diet: Cardiac Discharge Activity: Increase activity as tolerated Patient Instructions: Hydrocodone/Acetaminophen (By mouth), Thiamine (By mouth), Heart Healthy Diet (DC), Epilepsy (DC), Low-Sodium Diet (DC), Opioid Safety Patient's Health Concerns: We have fracture of left clavicle Please use arm sling it will take about 4 to 6 weeks to heal properly, do not lift anything from left hand You can take opioids for pain management Please take bowel regimen to have bowel movement every day Discharge Attestations Time Spent in Discharge Care*: less than 30 min Quality Metrics Clinical Quality Measures [ No reported AMI, CVA or VTE this stay] Coding Level of Care Code Acute Chg FW DC note Diagnoses Generalized seizure R56.9 Pneumonia J18.9 Diarrhea R19.7 Hypoxia R09.02 NIGEL (acute kidney injury) N17.9
[2022-07-12 11:17] VITALS: BP 135/83; PULSE 66; RESP 15; TEMP 36.6; O2SAT 95
== END 2022-07-12 11:19 | disposition home or self-care (01) ==
LOC: ER 07-11 01:15 → ICU 07-11 02:31
PROVIDERS: Admitting Provider Family Medicine; Emergency Provider Emergency Medicine; PCP Electrodiagnostic Medicine; Visit Provider Internal Medicine
DX: R56.9 Unspecified convulsions (principal); J18.9 Pneumonia, unspecified organism; R19.7 Diarrhea, unspecified; R09.02 Hypoxemia; N17.9 Acute kidney failure, unspecified; F17.210 Nicotine dependence, cigarettes, uncomplicated; E86.0 Dehydration
CPT/HCPCS: 36415; 70450; 71045; 73020; 80048; 80053; 81001; 82140; 83605; 83735; 84145; 84443; 85025; 86140; 87040; 87426; 87493; 87506; 87804; 96365; 96367; 96372; 96375; 99285; C9113; G0378; J0131; J0456; J0696; J1650; J1953; J2060; J2270; J2405; J7030; J7050

== ENCOUNTER 2022-07-17 15:08 | Inpatient (IN) | payer MEDICARE, MEDICAID, SELFPAY ==
[2022-07-17] VITALS (7 sets, daily range): BP systolic 122–143; BP diastolic 83–93; PULSE 54–72; RESP 12–29; TEMP 36.6–36.8; O2SAT 94–99; BMI 31.1
--- NOTE | 2022-07-17 16:07 | XRR_ITS ---
PROCEDURE INFORMATION: Exam: XR Chest Exam date and time: 07/17/2022 4:17 PM Age: 66 years old Clinical indication: Cough; Patient HX: History--2 seizures today, had one last Wednesday and broke his clavicle; Additional info: Follow up pneumonia TECHNIQUE: Imaging protocol: Radiologic exam of the chest. Views: 1 view. COMPARISON: CR (CHEST, ) 07/10/2022 11:51 PM FINDINGS: Lungs: No consolidation. Pleural spaces: No pleural effusion. No pneumothorax. Heart/Mediastinum: Hiatal hernia noted. No cardiomegaly. Bones/joints: Distal left clavicular fracture again noted, not significantly changed. No acute findings. XR/XR chest 1V portable [id number] IMPRESSION: 1. Negative for consolidation/pneumonia. 2. Redemonstrated distal left clavicular fracture, not significantly changed.
--- NOTE | 2022-07-17 16:07 | ECG_ITS ---
[facility] Test Date: 2022-07-17 Pat Name: Jose Starr Department: Room: Gender: Male Business Department Chair: : 1955 Requested By: Lexus Leach Order Number: [id number] Anna MD: Timothy Mcfadden M.D. Measurements Intervals [place] Rate: 76 P: 67 [place]: 191 QRS: -8 QRSD: 89 T: 19 QT: 349 QTc: 393 Interpretive Statements SINUS RHYTHM MINIMAL VOLTAGE CRITERIA FOR LVH, CONSIDER NORMAL VARIANT [MEETS CRITERIA IN ONE OF: R(aVL), S(V1), R(V5), R(V5/V6)+S(V1)] POSSIBLE ANTERIOR MYOCARDIAL INFARCTION , PROBABLY OLD [30 ms Q WAVE IN V3/V4, OR R < 0.2 mV IN V4] No previous ECG available for comparison Electronically Signed On 07-17-2022 17:52:14 [employer] by Timothy Mcfadden M.D. [email or web address]
[2022-07-17 16:27] LABS: Basophils % 0.4 %; Eosinophils # 0.1 10^3/uL (0.0-0.8); Eosinophils % 1.8 %; Hematocrit 43.1 % (42.0-52.0); Hemoglobin 14.4 g/dL (11.7-16.6); Lymphocytes % 19.7 %; Mean Corpuscular HGB Conc 33.4 g/dL (30.0-36.0); Mean Corpuscular Hemoglobin 30.1 pg (28.0-34.0); Mean Platelet Volume 11.5 fL (7.4-10.4); Monocytes # 0.3 10^3/uL (0.2-0.9); Monocytes % 5.5 %; Neutrophils # 3.55 10^3/uL (1.8-7.7); Nucleated Red Blood Cells % 0 %; Platelet Count 207 10^3/cmm (130-400); Red Blood Count 4.79 10^6/uL (4.1-5.3); Red Cell Distribution Width 12.4 % (12.1-15.1); White Blood Count 4.9 10^3/uL (4.0-10.0)
--- NOTE | 2022-07-17 16:33 | CTR_ITS ---
PROCEDURE INFORMATION: Exam: CT Head Without Contrast Exam date and time: 07/17/2022 4:57 PM Age: 66 years old Clinical indication: Patient HX: Seizure HX; Additional info: AMS TECHNIQUE: Imaging protocol: Computed tomography of the head without contrast. Radiation optimization: All CT scans at this facility use at least one of these dose optimization techniques: automated exposure control; mA and/or kV adjustment per patient size (includes targeted exams where dose is matched to clinical indication); or iterative reconstruction. COMPARISON: CT head wo con* [id number] 07/10/2022 11:53 PM RADIATION DOSE METRICS: Total DLP (mGy-cm): 1401.73 FINDINGS: Brain: No hemorrhage. No edema. Moderate diffuse cerebral atrophy and mild sequela of chronic small vessel ischemic disease. No mass effect. Cerebral ventricles: No ventriculomegaly. Paranasal sinuses: Visualized sinuses are unremarkable. No fluid levels. Mastoid air cells: Visualized mastoid air cells are well aerated. Bones/joints: Unremarkable. No acute fracture. Soft tissues: Unremarkable. CT/CT head wo con* [id number] IMPRESSION: No acute intracranial abnormality.
[2022-07-17] MEDS: LORazepam 2 mg/mL INJ 1 mL 1 MG IVP (16:42)
--- NOTE | 2022-07-17 16:42 | W.ED.SEIZURE ---
HPI - Seizure General: Chief Complaint: Seizure Stated Complaint: SEIZURES Time Seen by Provider: 07/17/22 16:04 History of Present Illness: HPI Narrative: This patient is a 66 year old presenting with seizures. He is post ictal and not able to provide history. History per EMS and the patient's . The patient reportedly has a history of seizures, but his says that she hasn't even seen him have one until Wednesday night - when he had a seizure and was brought into the ED. He had a second one while here and was admitted to the hospital. He fractured his left clavicle during the initial seizure. He was out of it until Wednesday when he went home and seemed okay. Today he has not been himself and has seemed restless - not talkative all day. shortly before coming in - he had another seizure and then a few minutes later had another one. He is still not back to baseline per . EMS reported that his mental status improved somewhat during transport. His says that he did not fall with the seizures today - as he was sitting in his recliner. I witnessed a seizure in the ER shortly after my initial exam. He had clonic tonic movements and his head was turned to the right, lip smacking. I was not able to see his eyes as his was holding onto him during the episode - which lasted about a minute. I had ordered ativan and keppra IV and that was given after the seizure. Seizure pads were in place and rails were up. Seizure History: Yes Place: Home [facility] PFSH: Medical History Migraine Family History (Updated 07/11/22 @ 02:12 by Kennedy Helm MD) Mother Dementia Social History (Updated 07/11/22 @ 02:12 by Kennedy Helm MD) Smoking and tobacco status: current every day smoker Alcohol intake: never Physical Exam Const: GENERAL APPEARANCE: lethargic ORIENTATION/CONSCIOUSNESS: Yes lethargic OTHER: opened eyes to voice - but mumbles answers, has trouble following commands HENMT: HEAD & SCALP: normal to inspection FACE & SINUS: normal facial exam Eye: GENERAL EYE: appearance normal, both eyes and all related structures Neck/C-Spine: COMMON NORMALS: supple, no meningeal signs and no JVD Chest: OTHER: tender distal left clavicle Resp: COMMON NORMALS: normal respiratory effort, No use of accessory muscles and clear to auscultation bilaterally AUSCULTATION: clear to auscultation bilaterally Cardio: COMMON NORMALS: no JVD, regular rate, regular rhythm and No murmurs present (Cardio) RATE: regular rate RHYTHM: regular rhythm GI: COMMON NORMALS: Normal to inspection, nondistended, normoactive bowel sounds present, Soft to palpation and non-tender INSPECTION: Yes normal to inspection AUSCULTATION: Yes normoactive bowel sounds PALPATION: Yes Soft to palpation Back/Pelvis: COMMON NORMALS: thoracic and lumbar spine normal to inspection Extremity: COMMON NORMALS: normal to inspection Neuro: COMMON NORMALS: moves all extremities, no focal motor deficits and no sensory deficits noted SENSORIUM/ORIENTATION: Yes Orientation impaired, Yes lethargic and Yes somnolent MENINGEAL SIGNS: Yes no meningeal signs SPEECH: Other neuro speech findings (mumbling) Psych: ACTIVITY/MOTOR BEHAVIOR: Yes Avoids eye contact (attititude/behavior) SPEECH: Yes minimal Skin: COMMON NORMALS: no rashes or lesions noted and turgor normal GENERAL SKIN EXAM: no rashes or lesions noted and turgor normal Course Vital Signs: Vital signs: Vital Signs Temperature 98.1 F 07/18/22 04:48 Pulse Rate 50 L 07/18/22 05:33 Respiratory Rate 19 H 07/18/22 04:48 Blood Pressure 117/77 07/18/22 04:48 Pulse Oximetry 97 07/18/22 04:48 Oxygen Delivery Me thod 07/17/22 22:57 MDM - Seizure MDM Narrative Medical decision making narrative: AMS, post ictal vs status. In my opinion this is status. IV meds loaded - seizure precautions. Will repeat CT head which was unremarkable on prior visit. Also repeated CXR - no infiltrates noted. Labs pending for signs of infection, EKG for evidence of abnormal rhythm. Will need to be admitted for monitoring - neurology consult. Patient had no further seizure activity - he gradually became more alert - pending admission here. Lab Data 07/17/22 14:40 07/17/22 14:40 Labs: Radiology Impressions Chest X-Ray 07/17/22 16:07 IMPRESSION: 1. Negative for consolidation/pneumonia. 2. Redemonstrated distal left clavicular fracture, not significantly changed. Head CT 07/17/22 16:33 IMPRESSION: No acute intracranial abnormality. Laboratory Results WBC 4.9 10^3/uL (4.0-10.0) 07/17/22 14:40 RBC 4.79 10^6/uL (4.1-5.3) 07/17/22 14:40 Hgb 14.4 g/dL (11.7-16.6) 07/17/22 14:40 Hct 43.1 % (42.0-52.0) 07/17/22 14:40 MCV 90.0 fl (80-94) 07/17/22 14:40 MCH 30.1 pg (28.0-34.0) 07/17/22 14:40 MCHC 33.4 g/dL (30.0-36.0) 07/17/22 14:40 RDW 12.4 % (12.1-15.1) 07/17/22 14:40 Plt Count 207 10^3/cmm (130-400) 07/17/22 14:40 MPV 11.5 fL (7.4-10.4) H 07/17/22 14:40 Neut % (Auto) 72.0 % 07/17/22 14:40 Lymph % (Auto) 19.7 % 07/17/22 14:40 [place] % (Auto) 5.5 % 07/17/22 14:40 Eos % (Auto) 1.8 % 07/17/22 14:40 Baso % (Auto) 0.4 % 07/17/22 14:40 Neut # (Auto) 3.55 10^3/uL (1.8-7.7) 07/17/22 14:40 Lymph # (Auto) 1.0 10^3/uL (0.8-4.8) 07/17/22 14:40 [place] # (Auto) 0.3 10^3/uL (0.2-0.9) 07/17/22 14:40 Eos # (Auto) 0.1 10^3/uL (0.0-0.8) 07/17/22 14:40 Baso # (Auto) 0.0 10^3/uL (0.0-0.1) 07/17/22 14:40 Nucleated RBC % (auto) 0 % 07/17/22 14:40 Nucleated RBCs # 0.0 /100WBC 07/17/22 14:40 Sodium 141 mmol/L (136-145) 07/17/22 16:42 Potassium 4.2 mmol/L (3.5-5.1) 07/17/22 16:42 Chloride 105 mmol/L (98-107) 07/17/22 16:42 Carbon Dioxide 23 mmol/L (22-29) 07/17/22 16:42 Anion Gap 17.2 (5-19) 07/17/22 16:42 BUN 14 mg/dL (8-23) 07/17/22 16:42 Creatinine 0.9 mg/dL (0.7-1.2) 07/17/22 16:42 GFR Calculation 84.7 mL/min (90-130) L 07/17/22 16:42 Glucose 110 mg/dL (65-115) 07/17/22 16:42 Calculated Osmolality 293 mOsm/kg (285-295) 07/17/22 16:42 Calcium 8.8 mg/dL (8.5-10.5) 07/17/22 16:42 Total Bilirubin 0.4 mg/dL (0.15-1.2) 07/17/22 16:42 AST 35 U/L (0-40) 07/17/22 16:42 ALT 32 U/L (0-41) 07/17/22 16:42 Alkaline Phosphatase 67 U/L (40-130) 07/17/22 16:42 Total Protein 7.6 g/dL (6.6-8.7) 07/17/22 16:42 Albumin 4.3 g/dL (3.5-5.2) 07/17/22 16:42 Globulin 3.3 g/dL (1.3-4.6) 07/17/22 16:42 Discharge Plan Discharge Patient Disposition: Admitted As Inpatient Admit Provider: Abrahan Cleveland Clinical Impression: Breakthrough seizure, Altered mental status, Status epilepticus Condition: Stable Coding Level of Care Code ED [employer] Traffic [employer] Manager for Chg Fwd Exam Comprehensive
[2022-07-17 17:09] LABS: Alanine Aminotransferase 32 U/L (0-41); Albumin Level 4.3 g/dL (3.5-5.2); Alkaline Phosphatase 67 U/L (40-130); Anion Gap 17.2 (5-19); Aspartate Amino Transferase 35 U/L (0-40); Blood Urea Nitrogen 14 mg/dL (8-23); Calcium 8.8 mg/dL (8.5-10.5); Carbon Dioxide 23 mmol/L (22-29); Chloride 105 mmol/L (98-107); Globulin 3.3 g/dL (1.3-4.6); Glomerular Filtration Rate 84.7 mL/min (90-130); Glucose 110 mg/dL (65-115); Osmolality Calculated 293 mOsm/kg (285-295); Potassium 4.2 mmol/L (3.5-5.1); Sodium 141 mmol/L (136-145); Total Bilirubin 0.4 mg/dL (0.15-1.2); Total Protein 7.6 g/dL (6.6-8.7)
--- NOTE | 2022-07-17 17:50 | PM.HP ---
Providers/Chief Complaint Primary Care Provider: Michael Chapman DO Chief Complaint: SEIZURES History of Present Illness Jose Starr is a 66 year old male with past medical history of seizure disorder, on Keppra as well as carbamazepine at home, family states he is compliant with his antiseizure medications, was brought in today after experiencing 2 seizure episodes at home, both lasted briefly, both were witnessed seizure, followed by postictal state, when he arrived here in the ER he had another seizure episode, got Ativan for that, was also loaded with 1 g Keppra. Was discharged with similar seizure episode on of this month. Patient has known history of seizure disorder was seizure-free for 6 years, when these episodes have started happening this month. CT head without contrast done showed no acute intracranial pathology X-ray chest: Old left distal clavicular fracture Pertinent labs: WBC 4.9, H&H 14/43, plt : 207 , sodium 141, potassium 4.2, BUN /serum creatinine 14/ 0.9, Urinalysis is pending Review of Systems General: Reports: ROS unobtainable due to mental status Medications/Allergies Home Medications Medication Instructions Recorded Confirmed Last Taken Type arm brace #1 ea 07/12/22 07/17/22 Unknown Rx carbamazepine 200 mg 200 mg PO BID #60 caps 07/12/22 07/17/22 07/17/22 Rx capsule,extended release [id number] levetiracetam 500 mg tablet 500 mg PO TID #90 tabs 07/12/22 07/17/22 07/17/22 Rx (Keppra) thiamine mononitrate (vit B1) 100 100 mg PO DAILY #30 tabs 07/12/22 07/17/22 07/17/22 Rx mg tablet (Vitamin B-1 (mononitrate)) oxycodone-acetaminophen 7.5 mg-325 1 tab PO Q4H PRN Pain 07/17/22 07/17/22 07/17/22 History mg tablet Allergies Allergy/AdvReac Type Severity Reaction Status Date / Time No Known Allergies Allergy Verified 07/11/22 00:06 PFSH Acute PFSH: Medical History Migraine Family History (Updated 07/11/22 @ 02:12 by Kennedy Helm MD) Mother Dementia Social History (Updated 07/11/22 @ 02:12 by Kennedy Helm MD) Smoking and tobacco status: current every day smoker Alcohol intake: never Vitals/I&O/Wt Last Vital Signs Temp 98.3 F 07/17/22 16:06 Pulse 54 L 07/17/22 17:32 Resp 12 07/17/22 17:32 BP 140/83 07/17/22 17:32 Pulse Ox 97 07/17/22 17:32 O2 Del Method 07/17/22 17:32 07/17/22 07/17/22 07/17/22 06:59 14:59 22:59 Intake Total 110 / 110 Balance 110 / 110 Weight last 48 hrs Weight 131.542 kg Physical Exam Narrative: Patient is currently sleepy. HENMT: COMMON NORMALS: normocephalic and atraumatic HEAD & SCALP: normocephalic and atraumatic Resp: COMMON NORMALS: clear to auscultation bilaterally EFFORT & INSPECTION: Yes symmetric chest movement AUSCULTATION: clear to auscultation bilaterally Cardio: COMMON NORMALS: regular rate, regular rhythm, S1 normal heart sound present, S2 normal heart sound present, No gallops present (Cardio), No murmurs present (Cardio), No rub (Cardio) and Peripheral pulses 2+ throughout RATE: regular rate RHYTHM: regular rhythm HEART SOUNDS: S1 normal heart sound present and S2 normal heart sound present PERIPHERAL PULSES: Peripheral pulses 2+ throughout GI: COMMON NORMALS: Normal to inspection, nondistended, normoactive bowel sounds present, Soft to palpation, non-tender, No hepatosplenomegaly present and no masses AUSCULTATION: Yes normoactive bowel sounds PALPATION: Yes Soft to palpation and Yes No hepatosplenomegaly present RECTAL EXAM: Yes deferred Extremity: COMMON NORMALS: no clubbing, cyanosis or edema and no pedal edema Data 07/17/22 14:40 07/17/22 16:42 A&P Assessment and plan (1) Breakthrough seizure: (2) Altered mental status: Plan Matty is a 66 year old male with past medical history of seizure disorder, on Keppra as well as carbamazepine at home, family states he is compliant with his antiseizure medications, was brought in today after experiencing 2 seizure episodes at home, both lasted briefly, both were witnessed seizure, followed by postictal state, when he arrived here in the ER he had another seizure episode, got Ativan for that, was also loaded with 1 g Keppra. Assessment: Recurrent breakthrough seizure Altered mental status secondary to seizure Plan: CT head without contrast done showed no acute intracranial pathology X-ray chest: Old left distal clavicular fracture. Follow Keppra level Follow carbamazepine level Currently he has been started 500 mg IV Keppra twice daily Continue carbamazepine Seizure precaution Aspiration precaution Fall precaution Currently n.p.o. CODE STATUS; full code DVT prophylaxis on Lovenox Attestations Medical Necessity Statement*: Patient is to be in hospital for management of breakthrough seizures.Anticipated length of stay greater than 2 midnights Coding Level of Care Code Acute Code for Chg Fwd Exam Detailed Diagnoses Breakthrough seizure G40.919 Altered mental status R41.82
[2022-07-17] MEDS: enoxaparin 40 mg/0.4 mL Syringe SUBCUT (18:43)
[2022-07-17 19:57] LABS: Add Urine Microscopic? NO; Charge for UA Resulting for Rev
[2022-07-17 20:12] LABS: Bilirubin Urine Neg (Negative); Blood Urine Neg (Negative); Glucose Urine UA Norm (Normal); Ketones Urine Negative (Negative); Leukocyte Esterase Urine Negative (Negative); Nitrate Urine Negative (Negative); Protein Urine Neg (Negative); Specific Gravity, Urine 1.015 (1.005-1.030); Urine Appearance Clear (CLEAR); Urine Color Yellow (Yellow); Urobilinogen Urine Neg (Negative); pH Urine 6 (5-7)
[2022-07-17] MEDS: morphine 4 mg/mL SDV 1 mL IVP (20:24)
[2022-07-17] MEDS: ondansetron 2 mg/ML SDV 2 mL 4 MG IVP (20:24)
[2022-07-17] MEDS: lidocaine 2% viscous 15 ML, aluminum-mag hydrox-simethicon 30 ML, sucralfate oral liq 1 GM PO (23:55)
[2022-07-18] VITALS (9 sets, daily range): BP systolic 117–145; BP diastolic 73–85; PULSE 50–63; RESP 17–20; TEMP 36.4–37.3; O2SAT 95–99
[2022-07-18] MEDS: acetaminophen 325 mg Tablet 650 MG PO ×3 (00:45→18:34)
[2022-07-18 05:30] LABS: Basophils % 0.4 %; Eosinophils # 0.1 10^3/uL (0.0-0.8); Eosinophils % 2.6 %; Hematocrit 39.5 % (42.0-52.0); Hemoglobin 12.7 g/dL (11.7-16.6); Lymphocytes # 1.6 10^3/uL (0.8-4.8); Lymphocytes % 29.7 %; Mean Corpuscular HGB Conc 32.2 g/dL (30.0-36.0); Mean Corpuscular Hemoglobin 29.3 pg (28.0-34.0); Mean Platelet Volume 10.9 fL (7.4-10.4); Monocytes # 0.4 10^3/uL (0.2-0.9); Monocytes % 7.3 %; Neutrophils # 3.18 10^3/uL (1.8-7.7); Neutrophils % 59.8 %; Nucleated Red Blood Cells % 0 %; Platelet Count 192 10^3/cmm (130-400); Red Blood Count 4.34 10^6/uL (4.1-5.3); Red Cell Distribution Width 12.5 % (12.1-15.1); White Blood Count 5.3 10^3/uL (4.0-10.0)
[2022-07-18 05:57] LABS: Carbamazepine Tegretol 4.9 ug/mL (4.0-12.0)
[2022-07-18 05:58] LABS: Alanine Aminotransferase 24 U/L (0-41); Albumin Level 3.8 g/dL (3.5-5.2); Alkaline Phosphatase 57 U/L (40-130); Anion Gap 12.6 (5-19); Aspartate Amino Transferase 22 U/L (0-40); Blood Urea Nitrogen 15 mg/dL (8-23); Calcium 8.4 mg/dL (8.5-10.5); Carbon Dioxide 26 mmol/L (22-29); Chloride 105 mmol/L (98-107); Globulin 2.9 g/dL (1.3-4.6); Glucose 90 mg/dL (65-115); Magnesium 2.2 mg/dL (1.7-2.3); Osmolality Calculated 290 mOsm/kg (285-295); Phosphorus 3.3 mg/dL (2.5-4.5); Potassium 3.6 mmol/L (3.5-5.1); Sodium 140 mmol/L (136-145); Total Bilirubin 0.4 mg/dL (0.15-1.2); Total Protein 6.7 g/dL (6.6-8.7)
[2022-07-18] MEDS: carBAMazepine XR (12 HR) 200 mg Tablet PO ×2 (06:16→18:25)
[2022-07-18] MEDS: thiamine 100 mg Tablet PO (10:33)
--- NOTE | 2022-07-18 16:11 | PM.PN ---
Subjective Subjective: No seizure has been reported in the last 24 hours, he was alert awake oriented this morning was hungry Has been started on regular diet. Medications: Medication Review Details: Generic Name Dose Route Start Last Admin Trade Name Dash PRN Reason Stop Dose Admin Acetaminophen 650 mg 07/17/22 17:46 07/18/22 11:11 Acetaminophen 32 5 Mg Tablet PO 650 mg Q6H PRN Administration Mild/Mod Pain Or Temp >/= 101 Carbamazepine 200 mg 07/18/22 07:00 07/18/22 06:16 Carbamazepine Xr (12 Hr) 200 Mg Ta blet PO 200 mg BID FELTON Administration Enoxaparin Sodium 40 mg 07/17/22 18:00 07/17/22 18:43 Enoxaparin 40 Mg /0.4 Ml Syringe SUBCUT 40 mg Q24H FELTON Administration Levetiracetam 500 mg/ Sodium 105 mls @ 420 mls /hr 07/18/22 10:45 07/18/22 11:25 Chloride IV Infused Q12H FELTON Infusion Thiamine Mononitra te 100 mg 07/18/22 09:00 07/18/22 10:33 Thiamine 100 Mg Tablet PO 100 mg DAILY FELTON Administration Vitals/I&O/Wt Last Vital Signs Temp 97.6 F 07/18/22 15:57 Pulse 58 L 07/18/22 15:57 Resp 17 07/18/22 15:57 BP 120/73 07/18/22 15:57 Pulse Ox 95 07/18/22 15:57 O2 Del Method 07/17/22 22:57 07/18/22 07/18/22 07/18/22 06:59 14:59 22:59 Intake Total 585 / 585 Balance 585 / 585 Weight last 48 hrs Weight 131.542 kg Physical Exam HENMT: COMMON NORMALS: normocephalic and atraumatic HEAD & SCALP: normocephalic and atraumatic Resp: COMMON NORMALS: clear to auscultation bilaterally EFFORT & INSPECTION: Yes symmetric chest movement AUSCULTATION: clear to auscultation bilaterally Cardio: COMMON NORMALS: regular rate, regular rhythm, S1 normal heart sound present, S2 normal heart sound present, No gallops present (Cardio), No murmurs present (Cardio), No rub (Cardio) and Peripheral pulses 2+ throughout RATE: regular rate RHYTHM: regular rhythm HEART SOUNDS: S1 normal heart sound present and S2 normal heart sound present PERIPHERAL PULSES: Peripheral pulses 2+ throughout GI: COMMON NORMALS: Normal to inspection, nondistended, normoactive bowel sounds present, Soft to palpation, non-tender, No hepatosplenomegaly present and no masses AUSCULTATION: Yes normoactive bowel sounds PALPATION: Yes Soft to palpation and Yes No hepatosplenomegaly present RECTAL EXAM: Yes deferred Extremity: COMMON NORMALS: no clubbing, cyanosis or edema and no pedal edema Data 07/18/22 04:24 07/18/22 04:24 A&P Assessment and plan (1) Breakthrough seizure: (2) Altered mental status: Plan Matty is a 66 year old male with past medical history of seizure disorder, on Keppra as well as carbamazepine at home, family states he is compliant with his antiseizure medications, was brought in today after experiencing 2 seizure episodes at home, both lasted briefly, both were witnessed seizure, followed by postictal state, when he arrived here in the ER he had another seizure episode, got Ativan for that, was also loaded with 1 g Keppra. Assessment: Recurrent breakthrough seizure Altered mental status secondary to seizure Plan: CT head without contrast done showed no acute intracranial pathology X-ray chest: Old left distal clavicular fracture. Follow Keppra level Follow carbamazepine level Currently he has been started 500 mg IV Keppra twice daily Continue carbamazepine Seizure precaution Aspiration precaution Fall precaution Currently n.p.o. CODE STATUS; full code DVT prophylaxis on Lovenox Attestations Medical Necessity Statement*: Needs to be in hospital for management of his breakthrough seizures. Coding Level of Care Code Acute Code for Chg Fwd Exam Detailed Diagnoses Breakthrough seizure G40.919 Altered mental status R41.82
[2022-07-18] MEDS: enoxaparin 40 mg/0.4 mL Syringe SUBCUT (18:26)
[2022-07-18] MEDS: ketorolac 30 mg/mL INJ 15 MG IVP (21:11)
[2022-07-19] MEDS: acetaminophen 325 mg Tablet 650 MG PO ×2 (00:01→09:31)
[2022-07-19 03:56] VITALS: BP 111/75; PULSE 50; RESP 18; TEMP 36.4; O2SAT 97
[2022-07-19 05:49] LABS: Basophils % 0.5 %; Eosinophils # 0.2 10^3/uL (0.0-0.8); Hematocrit 38.6 % (42.0-52.0); Hemoglobin 12.6 g/dL (11.7-16.6); Lymphocytes # 1.3 10^3/uL (0.8-4.8); Lymphocytes % 29.5 %; Mean Corpuscular HGB Conc 32.6 g/dL (30.0-36.0); Mean Corpuscular Hemoglobin 29.4 pg (28.0-34.0); Mean Corpuscular Volume 90.2 fl (80-94); Mean Platelet Volume 10.2 fL (7.4-10.4); Monocytes # 0.5 10^3/uL (0.2-0.9); Monocytes % 10.3 %; Neutrophils # 2.39 10^3/uL (1.8-7.7); Neutrophils % 54.5 %; Nucleated Red Blood Cells % 0 %; Platelet Count 181 10^3/cmm (130-400); Red Blood Count 4.28 10^6/uL (4.1-5.3); Red Cell Distribution Width 12.5 % (12.1-15.1); White Blood Count 4.4 10^3/uL (4.0-10.0)
[2022-07-19 06:00] VITALS: PULSE 43
[2022-07-19 06:25] LABS: Alanine Aminotransferase 20 U/L (0-41); Albumin Level 3.4 g/dL (3.5-5.2); Alkaline Phosphatase 62 U/L (40-130); Anion Gap 12.7 (5-19); Aspartate Amino Transferase 18 U/L (0-40); Blood Urea Nitrogen 21 mg/dL (8-23); Calcium 8.5 mg/dL (8.5-10.5); Carbon Dioxide 25 mmol/L (22-29); Chloride 106 mmol/L (98-107); Globulin 3.2 g/dL (1.3-4.6); Glucose 91 mg/dL (65-115); Osmolality Calculated 293 mOsm/kg (285-295); Potassium 3.7 mmol/L (3.5-5.1); Sodium 140 mmol/L (136-145); Total Bilirubin 0.3 mg/dL (0.15-1.2); Total Protein 6.6 g/dL (6.6-8.7)
[2022-07-19 07:45] VITALS: BP 132/83; PULSE 52; RESP 16; TEMP 36.2
[2022-07-19 08:00] VITALS: BP 132/83; PULSE 52; RESP 16; TEMP 36.2; O2SAT 97
[2022-07-19] MEDS: carBAMazepine XR (12 HR) 200 mg Tablet PO (09:31)
[2022-07-19] MEDS: thiamine 100 mg Tablet PO (09:32)
--- NOTE | 2022-07-19 10:24 | PM.DCS ---
Discharge Providers Date of Admission: 07/17/22 17:46 Date of Discharge: July 19, 2022 Attending Provider at Admission: Abrahan Cleveland MD Attending Provider at Discharge: Abrahan Cleveland MD Primary Care Provider: Michael Chapman DO Diagnoses at Discharge Discharge Diagnosis (1) Breakthrough seizure: Status: Acute (2) Altered mental status: Status: Acute Reason for Visit Reason for Visit: SEIZURES Hospital Course Hospital Course 66 year old male with past medical history of seizure disorder, on Keppra as well as carbamazepine at home, family states he is compliant with his antiseizure medications, was brought in today after experiencing 2 seizure episodes at home, both lasted briefly, both were witnessed seizure, he was admitted for the management of breakthrough seizures, patient was kept on IV Keppra, as well as was continued on, carbamazepine, CTA without contrast showed no acute intracranial pathology, patient was monitored for for more than 24 hours for any seizure episode, there was no seizure thereafter. Serum carbamazepine level was normal. Serum Keppra level is pending. Patient was discharged on p.o. Keppra as well as carbamazepine.He has been asked to follow neurology as outpatient. Physical Exam Narrative: Patient is currently sleepy. HENMT: COMMON NORMALS: normocephalic and atraumatic HEAD & SCALP: normocephalic and atraumatic Resp: COMMON NORMALS: clear to auscultation bilaterally EFFORT & INSPECTION: Yes symmetric chest movement AUSCULTATION: clear to auscultation bilaterally Cardio: COMMON NORMALS: regular rate, regular rhythm, S1 normal heart sound present, S2 normal heart sound present, No gallops present (Cardio), No murmurs present (Cardio), No rub (Cardio) and Peripheral pulses 2+ throughout RATE: regular rate RHYTHM: regular rhythm HEART SOUNDS: S1 normal heart sound present and S2 normal heart sound present PERIPHERAL PULSES: Peripheral pulses 2+ throughout GI: COMMON NORMALS: Normal to inspection, nondistended, normoactive bowel sounds present, Soft to palpation, non-tender, No hepatosplenomegaly present and no masses AUSCULTATION: Yes normoactive bowel sounds PALPATION: Yes Soft to palpation and Yes No hepatosplenomegaly present RECTAL EXAM: Yes deferred Extremity: COMMON NORMALS: no clubbing, cyanosis or edema and no pedal edema Discharge Data Studies Completed and Pending Completed Studies During Hospitalization Category Date Time Status CT head wo con* [id number] Stat Cat Scan 07/17/22 16:33 Completed XR chest 1V portable [id number] Stat Exams 07/17/22 16:07 Completed Pending at discharge Category Date Time Status Complete Blood Count w/Auto AM LABS Lab 07/20/22 04:00 Ordered Comprehensive Metabolic Panel AM LABS Lab 07/20/22 04:00 Ordered KEPPRA [Levetiracetam Immunoassy] Routine Lab 07/17/22 18:44 Received Radiology Impressions Chest X-Ray 07/17/22 16:07 IMPRESSION: 1. Negative for consolidation/pneumonia. 2. Redemonstrated distal left clavicular fracture, not significantly changed. Head CT 07/17/22 16:33 IMPRESSION: No acute intracranial abnormality. Laboratory Results WBC 4.4 10^3/uL (4.0-10.0) 07/19/22 05:25 RBC 4.28 10^6/uL (4.1-5.3) 07/19/22 05:25 Hgb 12.6 g/dL (11.7-16.6) 07/19/22 05:25 Hct 38.6 % (42.0-52.0) L 07/19/22 05:25 MCV 90.2 fl (80-94) 07/19/22 05:25 MCH 29.4 pg (28.0-34.0) 07/19/22 05:25 MCHC 32.6 g/dL (30.0-36.0) 07/19/22 05:25 RDW 12.5 % (12.1-15.1) 07/19/22 05:25 Plt Count 181 10^3/cmm (130-400) 07/19/22 05:25 MPV 10.2 fL (7.4-10.4) 07/19/22 05:25 Neut % (Auto) 54.5 % 07/19/22 05:25 Lymph % (Auto) 29.5 % 07/19/22 05:25 [place] % (Auto) 10.3 % 07/19/22 05:25 Eos % (Auto) 5.0 % 07/19/22 05:25 Baso % (Auto) 0.5 % 07/19/22 05:25 Neut # (Auto) 2.39 10^3/uL (1.8-7.7) 07/19/22 05:25 Lymph # (Auto) 1.3 10^3/uL (0.8-4.8) 07/19/22 05:25 [place] # (Auto) 0.5 10^3/uL (0.2-0.9) 07/19/22 05:25 Eos # (Auto) 0.2 10^3/uL (0.0-0.8) 07/19/22 05:25 Baso # (Auto) 0.0 10^3/uL (0.0-0.1) 07/19/22 05:25 Nucleated RBC % (auto) 0 % 07/19/22 05:25 Nucleated RBCs # 0.0 /100WBC 07/19/22 05:25 Sodium 140 mmol/L (136-145) 07/19/22 05:25 Potassium 3.7 mmol/L (3.5-5.1) 07/19/22 05:25 Chloride 106 mmol/L (98-107) 07/19/22 05:25 Carbon Dioxide 25 mmol/L (22-29) 07/19/22 05:25 Anion Gap 12.7 (5-19) 07/19/22 05:25 BUN 21 mg/dL (8-23) 07/19/22 05:25 Creatinine 1.0 mg/dL (0.7-1.2) 07/19/22 05:25 GFR Calculation 75.0 mL/min (90-130) L 07/19/22 05:25 Glucose 91 mg/dL (65-115) 07/19/22 05:25 Calculated Osmolality 293 mOsm/kg (285-295) 07/19/22 05:25 Calcium 8.5 mg/dL (8.5-10.5) 07/19/22 05:25 Phosphorus 3.3 mg/dL (2.5-4.5) 07/18/22 04:24 Magnesium 2.2 mg/dL (1.7-2.3) 07/18/22 04:24 Total Bilirubin 0.3 mg/dL (0.15-1.2) 07/19/22 05:25 AST 18 U/L (0-40) 07/19/22 05:25 ALT 20 U/L (0-41) 07/19/22 05:25 Alkaline Phosphatase 62 U/L (40-130) 07/19/22 05:25 Total Protein 6.6 g/dL (6.6-8.7) 07/19/22 05:25 Albumin 3.4 g/dL (3.5-5.2) L 07/19/22 05:25 Globulin 3.2 g/dL (1.3-4.6) 07/19/22 05:25 Urine Color Yellow (Yellow) 07/17/22 19:50 Urine Appearance Clear (CLEAR) 07/17/22 19:50 Urine pH 6 (5-7) 07/17/22 19:50 Ur Specific [place] 1.015 (1.005-1.030) 07/17/22 19:50 Urine Protein Neg (Negative) 07/17/22 19:50 Urine Glucose (UA) Norm (Normal) 07/17/22 19:50 Urine Ketones Negative (Negative) 07/17/22 19:50 Urine Blood Neg (Negative) 07/17/22 19:50 Urine Nitrate Negative (Negative) 07/17/22 19:50 Urine Bilirubin Neg (Negative) 07/17/22 19:50 Urine Urobilinogen Neg mg/dL (Negative) 07/17/22 19:50 Ur Leukocyte Esterase Negative (Negative) 07/17/22 19:50 Carbamazepine 4.9 ug/mL (4.0-12.0) 07/18/22 04:24 Vitals Last Vital Signs Temp 97.2 F L 07/19/22 08:00 Pulse 52 L 07/19/22 08:00 Resp 16 07/19/22 08:00 BP 132/83 07/19/22 08:00 Pulse Ox 97 07/19/22 08:00 O2 Del Method 07/19/22 08:00 Discharge Plan Discharge Patient Disposition: Home Condition: Stable Prescriptions: Continued thiamine mononitrate (vit B1) [Vitamin B-1 (mononitrate)] 100 mg Tablet 100 mg PO DAILY Qty: 30 0RF levetiracetam [Keppra] 500 mg Tablet 500 mg PO TID Qty: 90 0RF carbamazepine 200 mg capsule, ER multiphase 12 hr 200 mg PO BID Qty: 60 0RF (DME) arm brace Misc See Rx Instructions .Route Qty: 1 0RF Rx Instructions: As directed oxycodone-acetaminophen 7.5-325 mg tablet 1 tab PO Q4H PRN (Reason: Pain) Discharge Orders: Discharge Order (Routine); Ordered 07/19/22 Ordered By: Abrahan Cleveland Referrals: Michael Chapman DO [Primary Care Provider] - 1 week (Please call Wednesday07/20/22 to schedule a hospital follow up appointment.) Patient Instructions: Recurrent Seizures in Adults (GEN), Opioid Safety Discharge Attestations Time Spent in Discharge Care*: less than 30 min Quality Metrics Clinical Quality Measures [ No reported AMI, CVA or VTE this stay] Coding Level of Care Code Acute g FW DC note Diagnoses Breakthrough seizure G40.919 Altered mental status R41.82
--- NOTE | 2022-07-19 11:34 | PC.NURSE ---
1115 Discharge instructions given to patient and . both voiced understanding. IV dc'd at 1030 patient tolerated well.
[2022-07-19 11:36] VITALS: BP 132/83; PULSE 52; RESP 16; TEMP 36.2; O2SAT 97
[2022-07-20 13:10] LABS: Levetiracetam Immunoassy 22.3 mcg/mL (6.0-46.0)
== END 2022-07-19 11:20 | disposition home or self-care (01) | DRG 101 ==
LOC: ER 19:07 → MEDSURG 20:01
PROVIDERS: Admitting Provider Internal Medicine; Emergency Provider Emergency Medicine; PCP Electrodiagnostic Medicine; Visit Provider Internal Medicine
DX: G40.909 Epilepsy, unspecified, not intractable, without status epilepticus (principal); Z79.891 Long term (current) use of opiate analgesic; F17.200 Nicotine dependence, unspecified, uncomplicated
CPT/HCPCS: 36415; 70450; 71045; 80053; 80156; 80177; 81003; 83735; 84100; 85025; 93005; 96372; 96374; 96375; 99285; J1650; J1885; J1953; J2060; J2270; J2405

== ENCOUNTER → 2022-08-26 08:36 | Outpatient (BNVA) | payer MEDICARE, MEDICAID, SELFPAY | PROVIDERS: PCP Electrodiagnostic Medicine; Referring Provider Internal Medicine; Visit Provider Specialist | DX: G40.803 Other epilepsy, intractable, with status epilepticus (principal) | CPT/HCPCS: 99205 ==

== ENCOUNTER 2022-09-09 15:07 | Outpatient (CLI) | payer MEDICARE, MEDICAID, SELFPAY ==
--- NOTE | 2022-09-09 15:15 | MR_ITS ---
WS: [id number] MRI HEAD WITHOUT CONTRAST TECHNIQUE: Sagittal T1, T2 axial, T2 axial FLAIR, axial and coronal T1 images, axial susceptibility w eighted imaging, axial diffusion weighted images, and coronal T2 images were obtained. 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 COMPARISON: CT July 17, 2022 FINDINGS: No evidence of restricted diffusion to suggest acute ischemia. Ventricular system and basal cisterns are patent. Mild to moderate small vessel changes. Mild parenchymal volume loss. Volume loss worse in the posterior fossa. Normal vascular flow voids at the skull base. No extra-axial fluid collections. No evidence of mass or mass effect. Mucosal thickening in the paranasal sinuses. Fluid in the LEFT m axillary sinus. Mastoid air cells well aerated. No hemosiderin on susceptibly weighted images. Temporal lobes and hippocampal formations are normal i n appearance. Normal optic chiasm and pituitary infundibulum. Normal cavernous sinuses and Meckel's c ave. MR/MR head wo con* [id number] IMPRESSION: 1. No evidence of restricted diffusion to suggest acute ischemia. 2. [id number] small vessel changes with mild parenchymal volume loss. Mo derate parenchymal volume loss in the posterior fossa. 3. LEFT maxillary sinusitis with air-fluid level. Mastoid air cells well aerat ed. 4. No hemosiderin on susceptibly weighted images. 5. Temporal lobes and hippocampal formations are normal in appearance.
== END 2022-09-09 15:08 | disposition home or self-care (01) ==
PROVIDERS: PCP Electrodiagnostic Medicine; Visit Provider Specialist
DX: G40.802 Other epilepsy, not intractable, without status epilepticus (principal)
CPT/HCPCS: 70551

== ENCOUNTER 2023-01-14 18:42 | Emergency (ER) | payer MEDICARE, MEDICAID, SELFPAY ==
[2023-01-14 18:45] VITALS: BP 166/102; PULSE 69; RESP 18; TEMP 36.4; O2SAT 94
[2023-01-14 19:12] LABS: Basophils % 0.4 %; Eosinophils # 0.2 10^3/uL (0.0-0.8); Eosinophils % 4.1 %; Hematocrit 42.1 % (42.0-52.0); Lymphocytes # 1.1 10^3/uL (0.8-4.8); Lymphocytes % 21.4 %; Mean Corpuscular HGB Conc 33.3 g/dL (30.0-36.0); Mean Corpuscular Volume 90.1 fl (80-94); Mean Platelet Volume 10.4 fL (7.4-10.4); Monocytes # 0.5 10^3/uL (0.2-0.9); Monocytes % 9.2 %; Neutrophils # 3.43 10^3/uL (1.8-7.7); Neutrophils % 64.3 %; Nucleated Red Blood Cells % 0 %; Platelet Count 157 10^3/cmm (130-400); Red Blood Count 4.67 10^6/uL (4.1-5.3); Red Cell Distribution Width 12.9 % (12.1-15.1); White Blood Count 5.3 10^3/uL (4.0-10.0)
--- NOTE | 2023-01-14 19:13 | USR_ITS ---
PROCEDURE INFORMATION: Exam: US Abdomen, Limited; Right Upper Quadrant Exam date and time: 01/14/2023 7:39 PM Age: 67 years old Clinical indication: Abdominal pain; Other: Ruq; Additional info: Ruq pain TECHNIQUE: Imaging protocol: Real time ultrasound of the abdomen with image documentation. Limited exam focused on the right upper quadrant. COMPARISON: No relevant prior studies available. FINDINGS: Liver: Mildly enlarged. Gallbladder: No gallstones. No gallbladder wall thickening or pericholecystic fluid. Negative sonographic Roblero's sign, as per the performing berry grower. Biliary ducts: Normal. No stones. No dilation. Pancreas: Unremarkable as visualized. Right kidney: 1.1 cm cyst. No solid mass. No definite stones. No hydronephrosis. US/US gall bladder [id number] IMPRESSION: Mild hepatomegaly.
--- NOTE | 2023-01-14 19:15 | W.ED.ABDPA2 ---
HPI - Abdominal Pain General: Chief Complaint: Abdominal Pain Stated Complaint: right upper abdomen pain Time Seen by Provider: 01/14/23 19:09 Source: patient Mode of arrival: ambulatory Limitations: no limitations History of Present Illness: 67-year-old male states that he ate a adhikari and figueroa soup this afternoon has been having right upper quadrant pain since then. States sharp pain much worse with movement and palpation rates pain 8 out of 10 he has had nausea no vomiting denies any fevers. He denies any worsening or improving factors states he had no issues of gallbladder issues. Associated Symptoms: Denies chills, diarrhea, fever(s), nausea and vomiting Review of Systems Const: Denies: fever(s), chills, body aches or change in appetite Eyes: Denies: blurry vision or eye discomfort ENMT: Denies: throat pain or dental pain Card: Denies: chest pain Resp: Denies: dyspnea GI: Denies: abdominal pain, nausea, vomiting or diarrhea Musc: Denies: neck pain or back pain Skin/Breast: Denies: rash Neuro: Denies: headache(s) PFSH ED PFSH: Medical History NIGEL (acute kidney injury) Altered mental status Breakthrough seizure Diarrhea Generalized seizure Hypoxia Migraine Pneumonia Status epilepticus Family History Mother Dementia Social History Smoking and tobacco status: current every day smoker Alcohol intake: never Substance/Drug Use: never Physical Exam Const: COMMON NORMALS: no acute distress, patient oriented x3 and healthy appearing HENMT: COMMON NORMALS: normocephalic and atraumatic HEAD & SCALP: normocephalic and atraumatic Eye: COMMON NORMALS: conjunctivae normal CONJUNCTIVA: Yes conjunctivae normal Neck/C-Spine: COMMON NORMALS: full ROM and supple Chest: COMMONS NORMALS: normal inspection of the chest and normal palpation of entire chest wall Resp: COMMON NORMALS: normal respiratory effort, No retractions, No use of accessory muscles and clear to auscultation bilaterally AUSCULTATION: clear to auscultation bilaterally Cardio: COMMON NORMALS: regular rate, regular rhythm and No murmurs present (Cardio) RATE: regular rate RHYTHM: regular rhythm GI: COMMON NORMALS: Normal to inspection, nondistended, normoactive bowel sounds present, Soft to palpation and no masses PALPATION: Yes Soft to palpation and Yes Tenderness to palpation present (GI) Details: RUQ Extremity: COMMON NORMALS: normal to inspection and full ROM Neuro: COMMON NORMALS: patient oriented x3, moves all extremities and no focal motor deficits Psych: COMMON NORMALS: mental status grossly normal, Normal thought process present and cooperative THOUGHT PROCESS: Normal thought process present Skin: COMMON NORMALS: no rashes or lesions noted and no wounds GENERAL SKIN EXAM: no rashes or lesions noted Course Vital Signs: Vital signs: Vital Signs Temperature 97.6 F 01/14/23 18:45 Pulse Rate 66 01/14/23 20:18 Respiratory Rate 16 01/14/23 20:18 Blood Pressure 145/106 01/14/23 19:57 Pulse Oximetry 92 01/14/23 20:18 Oxygen Delivery Me thod Room Air 01/14/23 18:45 MDM - Abdominal Pain Medical Decision Making Patient presents here with abdominal pain is since resolved he has no tenderness on exam at discharge she is ultrasound showed no acute abnormalities we will start him on Protonix we will get him follow-up with surgery he is return if worsening he understands agrees to plan. Medical Records I reviewed the patient's medical records. Lab Data I reviewed the patient's lab results. 01/14/23 19:02 01/14/23 19:02 Labs/Radiology: Radiology Impressions Gallbladder Ultrasound 01/14/23 19:13 IMPRESSION: Mild hepatomegaly. Laboratory Results WBC 5.3 10^3/uL (4.0-10.0) 01/14/23 19:02 RBC 4.67 10^6/uL (4.1-5.3) 01/14/23 19:02 Hgb 14.0 g/dL (11.7-16.6) 01/14/23 19:02 Hct 42.1 % (42.0-52.0) 01/14/23 19:02 MCV 90.1 fl (80-94) 01/14/23 19:02 MCH 30.0 pg (28.0-34.0) 01/14/23 19:02 MCHC 33.3 g/dL (30.0-36.0) 01/14/23 19:02 RDW 12.9 % (12.1-15.1) 01/14/23 19:02 Plt Count 157 10^3/cmm (130-400) 01/14/23 19:02 MPV 10.4 fL (7.4-10.4) 01/14/23 19:02 Neut % (Auto) 64.3 % 01/14/23 19:02 Lymph % (Auto) 21.4 % 01/14/23 19:02 [place] % (Auto) 9.2 % 01/14/23 19:02 Eos % (Auto) 4.1 % 01/14/23 19:02 Baso % (Auto) 0.4 % 01/14/23 19:02 Neut # (Auto) 3.43 10^3/uL (1.8-7.7) 01/14/23 19:02 Lymph # (Auto) 1.1 10^3/uL (0.8-4.8) 01/14/23 19:02 [place] # (Auto) 0.5 10^3/uL (0.2-0.9) 01/14/23 19:02 Eos # (Auto) 0.2 10^3/uL (0.0-0.8) 01/14/23 19:02 Baso # (Auto) 0.0 10^3/uL (0.0-0.1) 01/14/23 19:02 Nucleated RBC % (auto) 0 % 01/14/23 19:02 Nucleated RBCs # 0.0 /100WBC 01/14/23 19:02 Sodium 140 mmol/L (136-145) 01/14/23 19:02 Potassium 5.0 mmol/L (3.5-5.1) 01/14/23 19:02 Chloride 106 mmol/L (98-107) 01/14/23 19:02 Carbon Dioxide 23 mmol/L (22-29) 01/14/23 19:02 Anion Gap 16.0 (5-19) 01/14/23 19:02 BUN 22 mg/dL (8-23) 01/14/23 19:02 Creatinine 0.9 mg/dL (0.7-1.2) 01/14/23 19:02 GFR Calculation 84.4 mL/min (90-130) L 01/14/23 19:02 Glucose 140 mg/dL (65-115) H 01/14/23 19:02 Calculated Osmolality 296 mOsm/kg (285-295) H 01/14/23 19:02 Calcium 8.7 mg/dL (8.5-10.5) 01/14/23 19:02 Total Bilirubin 0.3 mg/dL (0.15-1.2) 01/14/23 19:02 AST 23 U/L (0-40) 01/14/23 19:02 ALT 27 U/L (0-41) 01/14/23 19:02 Alkaline Phosphatase 87 U/L (40-130) 01/14/23 19:02 Total Protein 7.2 g/dL (6.6-8.7) 01/14/23 19:02 Albumin 3.9 g/dL (3.5-5.2) 01/14/23 19:02 Globulin 3.3 g/dL (1.3-4.6) 01/14/23 19:02 Lipase 38 U/L (13-60) 01/14/23 19:02 Discharge Plan Discharge Patient Disposition: Home Clinical Impression: Abdominal pain Condition: Stable Prescriptions: New hydrocodone-acetaminophen 5-325 mg tablet 1 tab PO Q6H PRN (Reason: pain) Qty: 14 0RF ondansetron 4 mg tablet,disintegrating 4 mg PO Q6H PRN (Reason: nausea and vomiting) Qty: 14 0RF Protonix 40 mg tablet,delayed release (DR/EC) 40 mg PO DAILY Qty: 60 0RF No Action levetiracetam [Keppra] 1,000 mg tablet 1,000 mg PO BID Qty: 180 3RF carbamazepine [Carbatrol] 200 mg capsule, ER multiphase 12 hr 400 mg PO BID Qty: 360 3RF thiamine mononitrate (vit B1) [Vitamin B-1 (mononitrate)] 100 mg Tablet 100 mg PO DAILY Qty: 30 0RF oxycodone-acetaminophen 7.5-325 mg tablet 1 tab PO Q4H PRN (Reason: Pain) Discharge Orders: Discharge ED (Routine); Ordered 01/14/23 Ordered By: Noel Ramirez Referrals: Nic Mojica DO [Physician] - 1-3 days Michael Chapman DO [Primary Care Provider] - Discharge Diet: Advance as tolerated Discharge Activity: Resume usual activity Patient Instructions: Abdominal Pain (ED), Opioid Safety Coding Level of Care Code ED Assurance Associate for Gabriel Clarke
--- NOTE | 2023-01-14 19:32 | ECG_ITS ---
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 Measurements Intervals [place] Rate: 67 P: 35 TX: 213 QRS: 0 QRSD: 113 T: 32 QT: 352 QTc: 373 Interpretive Statements SINUS RHYTHM WITH FIRST DEGREE AV BLOCK POSSIBLE ANTERIOR MYOCARDIAL INFARCTION , OF INDETERMINATE AGE [30 ms Q WAVE IN V3/V4, OR R < 0.2 mV IN V4] Compared to ECG 07/17/2022 16:33:18 First degree AV block now present Myocardial infarct finding still present Electronically Signed On 01-14-2023 22:42:28 CDT by Liyah Maravilla M.D. [id number]
[2023-01-14 19:38] LABS: Alanine Aminotransferase 27 U/L (0-41); Albumin Level 3.9 g/dL (3.5-5.2); Alkaline Phosphatase 87 U/L (40-130); Aspartate Amino Transferase 23 U/L (0-40); Blood Urea Nitrogen 22 mg/dL (8-23); Calcium 8.7 mg/dL (8.5-10.5); Carbon Dioxide 23 mmol/L (22-29); Chloride 106 mmol/L (98-107); Globulin 3.3 g/dL (1.3-4.6); Glomerular Filtration Rate 84.4 mL/min (90-130); Glucose 140 mg/dL (65-115); Lipase 38 U/L (13-60); Osmolality Calculated 296 mOsm/kg (285-295); Sodium 140 mmol/L (136-145); Total Bilirubin 0.3 mg/dL (0.15-1.2); Total Protein 7.2 g/dL (6.6-8.7)
[2023-01-14 19:57] VITALS: BP 145/106; PULSE 72; RESP 16; O2SAT 96
[2023-01-14] MEDS: ondansetron 2 mg/ML SDV 2 mL 4 MG IVP (19:59)
[2023-01-14] MEDS: morphine 4 mg/mL SDV 1 mL IVP (19:59)
[2023-01-14 20:18] VITALS: PULSE 66; RESP 16; O2SAT 92
[2023-01-14 21:17] VITALS: BP 145/106; PULSE 66; RESP 16; TEMP 36.4; O2SAT 92
--- NOTE | 2023-01-15 10:02 | DCPLANNER ---
Addendum entered by Soledad Najera 01/20/23 15:23: sous chef kitchen manager received the following message from the ortho clinic regarding follow up appointment: patient declines referral Original Note: sous chef kitchen manager had message to schedule a follow up appointment for patient with general surgery. sous chef kitchen manager sent patients information to the front office staff at general surgery. Patients information will be printed and reviewed. Clinic will call patient with appointment information
== END 2023-01-14 21:18 | disposition home or self-care (01) ==
PROVIDERS: Emergency Provider Emergency Medicine; PCP Electrodiagnostic Medicine
DX: R10.11 Right upper quadrant pain (principal); F17.210 Nicotine dependence, cigarettes, uncomplicated
CPT/HCPCS: 36415; 76705; 80053; 83690; 85025; 93005; 96374; 96375; 99285; J2270; J2405

== ENCOUNTER → 2023-03-11 14:42 | Outpatient (BNVA) | payer MEDICARE, MEDICAID, SELFPAY | PROVIDERS: PCP Electrodiagnostic Medicine; Visit Provider Specialist | DX: G40.802 Other epilepsy, not intractable, without status epilepticus (principal) | CPT/HCPCS: 99213 ==

== ENCOUNTER → 2023-09-20 14:09 | Outpatient (BNVA) | payer MEDICARE, MEDICAID, SELFPAY | PROVIDERS: PCP Electrodiagnostic Medicine; Referring Provider Electrodiagnostic Medicine; Visit Provider Nurse Practitioner | DX: M70.62 Trochanteric bursitis, left hip; M46.1 Sacroiliitis, not elsewhere classified | CPT/HCPCS: 73522; 99204 ==

== ENCOUNTER 2023-12-05 04:35 | Emergency (ER) | payer MEDICARE, MEDICAID, SELFPAY ==
[2023-12-05 04:35] VITALS: BP 124/70; PULSE 57; RESP 15; TEMP 36.4; O2SAT 88; BMI 23.6
--- NOTE | 2023-12-05 04:39 | XRR_ITS ---
PROCEDURE INFORMATION: Exam: XR Chest Exam date and time: 12/05/2023 4:47 AM Age: 68 years old Clinical indication: Chest pressure; Patient HX: C/O chest pain; Additional info: Cp TECHNIQUE: Imaging protocol: Radiologic exam of the chest. Views: 1 view. COMPARISON: CR XR chest 1V portable [id number] 07/17/2022 4:17 PM FINDINGS: Lungs: There is some prominence and indistinctness of the pulmonary vasculature hazy and patchy opacities are seen in the mid lower milady thoraces. There are some septal markings present in the right mid and lower hemithorax as well. These findings suggest cardiac decompensation or volume overload. Pleural spaces: Unremarkable. No pleural effusion. No pneumothorax. Heart/Mediastinum: Cardiac silhouette is mildly prominent. There is a hiatal hernia present. Bones/joints: Unremarkable. XR/XR chest 1V portable [id number] IMPRESSION: 1. Mildly prominent cardiac silhouette, mild prominence and indistinctness of the pulmonary vasculature, hazy and patchy opacities in the mid and lower milady thoraces few septal markings seen right hemithorax, findings suggesting cardiac decompensation or volume overload. 2. Moderate hiatal hernia
--- NOTE | 2023-12-05 04:40 | ED_ITS ---
HPI - Chest Pain 2 General: Chief Complaint: Abdominal Pain Stated Complaint: ABD PAIN Time Seen by Provider: 12/05/23 04:38 Source: patient and EMS Mode of arrival: EMS Limitations: no limitations History of Present Illness: 68-year-old male states he had right-kenan ed chest pains been going on through the night he states that very sharp pain in his right-sided chest worse with movement and palpation. He has some shortness of breath with that pain. He denies any nausea or vomiting denies any cough or fever. Denies any radiation of pain Associated symptoms: Reports dyspnea; Deny abdominal pain, fever(s), nausea or vomiting Review of Systems 2 Const: Denies: fever(s), chills, body aches or change in appetite ENMT: Denies: throat pain or dental pain Card: Reports: chest pain Resp: Reports: dyspnea GI: Denies: abdominal pain, nausea, vomiting or diarrhea Musc: Denies: neck pain or back pain Skin/Breast: Denies: rash Neuro: Denies: headache(s) PFSH ED 2 PFSH: Medical History Inflammation of left sacroiliac joint Greater trochanteric bursitis of left hip Status epilepticus Altered mental status Breakthrough seizure NIGEL (acute kidney injury) Hypoxia Pneumonia Diarrhea Generalized seizure Migraine Family History Mother Dementia Social History Smoking and tobacco/nicotine status: current every day tobacco/nicotine user Alcohol intake: never Substance/Drug Use: never Physical Exam 2 Const: COMMON NORMALS: no acute distress, patient oriented x3 and healthy appearing HENMT: COMMON NORMALS: normocephalic and atraumatic HEAD & SCALP: n ormocephalic and atraumatic Eye: COMMON NORMALS: conjunctivae normal CONJUNCTIVA: Yes conjunctivae normal Neck/C-Spine: COMMON NORMALS: full ROM and supple Chest: COMMONS NORMALS: normal inspection of the chest OTHER: Point tender right chest Resp: COMMON NORMALS: normal respiratory effort, No retractions, No use of accessory muscles and clear to auscultation bilaterally AUSCULTATION: clear to auscultation bilaterally Cardio: COMMON NORMALS: regular rate, regular rhythm and No murmurs present (Cardio) RATE: regular rate RHYTHM: regular rhythm GI: COMMON NORMALS: Normal to inspection, nondistended, normoactive bowel sounds present, Soft to palpation, non-tender and no masses PALPATION: Yes Soft to palpation Extremity: COMMON NORMALS: normal to inspection and full ROM Neuro: COMMON NORMALS: patient oriented x3, moves all extremities and no focal motor deficits Psych: COMMON NORMALS: mental status grossly normal, Normal thought process present and cooperative THOUGHT PROCESS: Normal thought process present Skin: COMMON NORMALS: no rashes or lesions noted and no wounds GENERAL SKIN EXAM: no rashes or lesions noted Course 2 Vital Signs: Vital signs: Vital Signs Temperature 97.6 F 12/05/23 04:35 Pulse Rate 58 L 12/05/23 07:30 Respiratory Rate 18 12/05/23 07:30 Blood Pressure 124/70 12/05/23 04:35 Pulse Oximetry 92 12/05/23 07:30 Oxygen Delivery Me thod Nasal Cannula 12/05/23 04:45 Oxygen Flow Rate 2 12/05/23 04:45 MDM - Chest Pain Medical Decision Making Patient presents for chest pains atypical in nature he says tenderness on the right side chest x-ray was abnormal getting CT scan pending turned over to Dr. Hayden Medical Records I reviewed the patient's medical records. Lab Data I reviewed the patient's lab results. 12/05/23 04:20 12/05/23 04:20 Radiology Impressions Chest X-Ray 12/05/23 04:39 IMPRESSION: 1. Mildly prominent cardiac silhouette, mild prominence and indistinctness of the pulmonary vasculature, hazy and patchy opacities in the mid and lower milady thoraces few septal markings seen right hemithorax, findings suggesting cardiac decompensation or volume overload. 2. Moderate hiatal hernia Chest CTA 12/05/23 05:43 IMPRESSION: 1. There is no evidence for pulmonary emboli. 2. There is no evidence for aneurysmal dilatation, dissection extravasation the thoracic aorta. The aorta is ectatic. 3. Findings suggesting cardiac decompensation or volume overload. 4. Prominent hiatal hernia containing proximal stomach Laboratory Results WBC 4.78 10^3/uL (3.29-11.43) 12/05/23 04:20 RBC 4.74 10^6/uL (3.85-5.65) 12/05/23 04:20 Hgb 14.00 g/dL (11.27-16.99) 12/05/23 04:20 Hct 42.1 % (37-53) 12/05/23 04:20 MCV 88.8 fl (82-101) 12/05/23 04:20 MCH 29.5 pg (27-33) 12/05/23 04:20 MCHC 33.3 g/dL (30-55) 12/05/23 04:20 RDW 12.2 % (12.1-15.1) 12/05/23 04:20 Plt Count 160 10^3/cmm (157-399) 12/05/23 04:20 MPV 10.4 fL (7.4-10.4) 12/05/23 04:20 Neut % (Auto) 50.9 % 12/05/23 04:20 Lymph % (Auto) 32.4 % 12/05/23 04:20 [place] % (Auto) 10.5 % 12/05/23 04:20 Eos % (Auto) 5.4 % 12/05/23 04:20 Baso % (Auto) 0.6 % 12/05/23 04:20 Neut # (Auto) 2.43 10^3/uL (1.8-7.7) 12/05/23 04:20 Lymph # (Auto) 1.6 10^3/uL (0.8-4.8) 12/05/23 04:20 [place] # (Auto) 0.5 10^3/uL (0.2-0.9) 12/05/23 04:20 Eos # (Auto) 0.3 10^3/uL (0.0-0.8) 12/05/23 04:20 Baso # (Auto) 0.0 10^3/uL (0.0-0.1) 12/05/23 04:20 Nucleated RBC % (auto) 0 % 12/05/23 04:20 Nucleated RBCs # 0.0 /100WBC 12/05/23 04:20 D-Dimer 0.38 ug/mLFEU (0-0.59) 12/05/23 04:20 Sodium 137 mmol/L (136-145) 12/05/23 04:20 Potassium 4.1 mmol/L (3.5-5.1) 12/05/23 04:20 Chloride 103 mmol/L (98-107) 12/05/23 04:20 Carbon Dioxide 20 mmol/L (22-29) L 12/05/23 04:20 Anion Gap 18.1 (5-19) 12/05/23 04:20 BUN 14 mg/dL (8-23) 12/05/23 04:20 Creatinine 1.0 mg/dL (0.7-1.2) 12/05/23 04:20 GFR Calculation 74.5 mL/min (90-130) L 12/05/23 04:20 Glucose 115 mg/dL (65-115) 12/05/23 04:20 Calculated Osmolality 285 mOsm/kg (285-295) 12/05/23 04:20 Calcium 8.8 mg/dL (8.5-10.5) 12/05/23 04:20 Total Bilirubin 0.3 mg/dL (0.15-1.2) 12/05/23 04:20 AST 22 U/L (0-40) 12/05/23 04:20 ALT 21 U/L (0-41) 12/05/23 04:20 Alkaline Phosphatase 83 U/L (40-130) 12/05/23 04:20 Troponin T Baseline < 6 ng/L (0-15) 12/05/23 04:20 Troponin T 120 Minute 6.00 ng/L (0-15) 12/05/23 06:25 Delta Troponin T 0.53212 ABS# (0-10) 12/05/23 06:25 NT-Pro-B Natriuret Pep < 36 pg/mL (0-125) 12/05/23 04:20 Total Protein 7.5 g/dL (6.6-8.7) 12/05/23 04:20 Albumin 4.1 g/dL (3.5-5.2) 12/05/23 04:20 Globulin 3.4 g/dL (1.3-4.6) 12/05/23 04:20 Lipase 37 U/L (13-60) 12/05/23 04:20 All radiology interpretation(s) finalized by discharge EKG Data EKG 1: I personally reviewed and interpreted this EKG as follows: EKG interpretation date: 12/05/23 EKG interpretation time: 04:42 Interpretation: Sinus bradycardia heart rate [address] elevation QRS 117 QTc 397 Discharge Plan Discharge Patient Disposition: Home Clinical Impression: Chest pain, Hernia, hiatal, Acid reflux Condition: Stable Prescriptions: New pantoprazole 40 mg tablet,delayed release (DR/EC) 40 mg PO DAILY 28 Days Qty: 30 0RF Discontinued pantoprazole [Protonix] 40 mg tablet,delayed release (DR/EC) 40 mg PO DAILY Qty: 60 0RF No Action levetiracetam [Keppra] 1,000 mg tablet 1,000 mg PO BID Qty: 180 3RF trazodone 50 mg tablet 50 mg PO DAILY celecoxib [Celebrex] 100 mg capsule 100 mg PO BID Qty: 180 0RF carbamazepine 200 mg capsule, ER multiphase 12 hr See Rx Instructions .ROUTE .COMPLEX Qty: 360 0RF Dose Instruction: Take 2 capsules by mouth twice daily Rx Instructions: Take 2 capsules by mouth twice daily thiamine mononitrate (vit B1) [Vitamin B-1 (mononitrate)] 100 mg Tablet 100 mg PO DAILY Qty: 30 0RF hydrocodone-acetaminophen 5-325 mg tablet 1 tab PO Q6H PRN (Reason: pain) Qty: 14 0RF ondansetron 4 mg tablet,disintegrating 4 mg PO Q6H PRN (Reason: nausea and vomiting) Qty: 14 0RF oxycodone-acetaminophen 7.5-325 mg tablet 1 tab PO Q4H PRN (Reason: Pain) Discharge Orders: Discharge ED (Routine); Ordered 12/05/23 Ordered By: Lexus Davidson Referrals: Michael Chapman DO [Primary Care Provider] - 7-10 days Discharge Diet: Advance as tolerated Discharge Activity: Resume usual activity Patient Instructions: Opioid Safety, Pain Management Coding Level of Care Code ED [place] for Gabriel Clarke
--- NOTE | 2023-12-05 04:42 | ECG_ITS ---
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 Measurements Intervals [place] Rate: 57 P: 77 TX: 252 QRS: 6 QRSD: 117 T: 46 QT: 402 QTc: 395 Interpretive Statements SINUS BRADYCARDIA WITH FIRST DEGREE AV BLOCK MODERATE INTRAVENTRICULAR CONDUCTION DELAY [110+ ms QRS DURATION] Compared to ECG 01/14/2023 19:32:00 Intraventricular conduction delay now present Sinus rhythm no longer present Myocardial infarct finding no longer present Electronically Signed On 12-05-2023 20:42:01 CDT by Too Mirza M.D. [id number]
[2023-12-05 04:53] LABS: Basophils % 0.6 %; Eosinophils # 0.3 10^3/uL (0.0-0.8); Eosinophils % 5.4 %; Hematocrit 42.1 % (37-53); Lymphocytes # 1.6 10^3/uL (0.8-4.8); Lymphocytes % 32.4 %; Mean Corpuscular HGB Conc 33.3 g/dL (30-55); Mean Corpuscular Hemoglobin 29.5 pg (27-33); Mean Corpuscular Volume 88.8 fl (82-101); Mean Platelet Volume 10.4 fL (7.4-10.4); Monocytes # 0.5 10^3/uL (0.2-0.9); Monocytes % 10.5 %; Neutrophils # 2.43 10^3/uL (1.8-7.7); Neutrophils % 50.9 %; Nucleated Red Blood Cells % 0 %; Platelet Count 160 10^3/cmm (157-399); Red Blood Count 4.74 10^6/uL (3.85-5.65); Red Cell Distribution Width 12.2 % (12.1-15.1); White Blood Count 4.78 10^3/uL (3.29-11.43)
[2023-12-05 05:11] LABS: Troponin(5th) Baseline < 6 ng/L (0-15)
[2023-12-05 05:14] LABS: Alanine Aminotransferase 21 U/L (0-41); Albumin Level 4.1 g/dL (3.5-5.2); Alkaline Phosphatase 83 U/L (40-130); Anion Gap 18.1 (5-19); Aspartate Amino Transferase 22 U/L (0-40); Blood Urea Nitrogen 14 mg/dL (8-23); Calcium 8.8 mg/dL (8.5-10.5); Carbon Dioxide 20 mmol/L (22-29); Chloride 103 mmol/L (98-107); Creatinine Clr Calc Pharmacy 100.2696; Globulin 3.4 g/dL (1.3-4.6); Glomerular Filtration Rate 74.5 mL/min (90-130); Glucose 115 mg/dL (65-115); Lipase 37 U/L (13-60); Osmolality Calculated 285 mOsm/kg (285-295); Potassium 4.1 mmol/L (3.5-5.1); Sodium 137 mmol/L (136-145); Total Bilirubin 0.3 mg/dL (0.15-1.2); Total Protein 7.5 g/dL (6.6-8.7)
[2023-12-05 05:16] LABS: D Dimer 0.38 ug/mLFEU (0-0.59)
[2023-12-05 05:38] LABS: NT Pro B Type Natriuretic Pept < 36 pg/mL (0-125)
--- NOTE | 2023-12-05 05:43 | CTR_ITS ---
PROCEDURE INFORMATION: Exam: CTA Chest With Contrast Exam date and time: 12/05/2023 5:54 AM Age: 68 years old Clinical indication: Shortness of breath; Patient HX: Anterior RT lower chest wall pain with SOB. Enlarged mediastinum noted on cxr. ; Additional info: Cp/sob TECHNIQUE: Imaging protocol: Computed tomographic angiography of the chest with contrast. Exam focused on the arteries. 3D rendering (Not supervised by radiologist): MIP and/or 3D reconstructed images were created by the technologist. Radiation optimization: All CT scans at this facility use at least one of these dose optimization techniques: automated exposure control; mA and/or kV adjustment per patient size (includes targeted exams where dose is matched to clinical indication); or iterative reconstruction. Contrast material: OMNI 350; Contrast volume: 84 ml; Contrast route: INTRAVENOUS (IV); COMPARISON: CR (CHEST, ) 12/05/2023 4:47 AM RADIATION DOSE METRICS: Total DLP (mGy-cm): 462.5 FINDINGS: Pulmonary arteries: There is mild prominence of the pulmonary vasculature. Aorta: There is some ectasia the thoracic aorta. Lungs: There are patchy ground-glass opacity seen mid and lower milady thoraces bilaterally. There is mild bronchial wall thickening seen bilaterally. Pleural spaces: Unremarkable. No pneumothorax. No pleural effusion. Heart: Unremarkable. No cardiomegaly. No pericardial effusion. Lymph nodes: Unremarkable. No enlarged lymph nodes. Stomach: There is a prominent hiatal hernia present measuring 10 cm transverse dimension containing proximal stomach. Bones/joints: Unremarkable. No acute fracture. Soft tissues: Unremarkable. CT/CT angio chest PE protcl [id number] IMPRESSION: 1. There is no evidence for pulmonary emboli. 2. There is no evidence for aneurysmal dilatation, dissection extravasation the thoracic aorta. The aorta is ectatic. 3. Findings suggesting cardiac decompensation or volume overload. 4. Prominent hiatal hernia containing proximal stomach
[2023-12-05] MEDS: HYDROcodone-acetaminophen 5-325 mg Tablet 1 TAB PO (05:52)
[2023-12-05] MEDS: iohexol 350 mg/mL 500 mL Btl (per mL) IV (06:02)
[2023-12-05 06:55] LABS: Troponin 5 2HR Delta 0.00001 ABS# (0-10)
[2023-12-05 07:30] VITALS: PULSE 58; RESP 18; O2SAT 92
== END 2023-12-05 07:56 | disposition home or self-care (01) ==
PROVIDERS: Emergency Medicine; Emergency Provider Emergency Medicine; PCP Electrodiagnostic Medicine
DX: R07.9 Chest pain, unspecified (principal); K44.9 Diaphragmatic hernia without obstruction or gangrene; K21.9 Gastro-esophageal reflux disease without esophagitis; R00.1 Bradycardia, unspecified; Z72.0 Tobacco use
CPT/HCPCS: 36415; 71045; 71275; 80053; 83690; 83880; 84484; 85025; 85378; 93005; 99285; Q9967

== ENCOUNTER 2024-01-20 07:19 | Emergency (ER) | payer MEDICARE, MEDICAID, SELFPAY ==
--- NOTE | 2024-01-20 07:21 | XR_ITS ---
WS: [id number] XR chest 1V portable [id number] REASON FOR EXAM: dyspnea/cough FINDINGS: Moderate ectasia and tortuosity of the thoracic aorta. Mild cardiomegaly. Large hiatal hernia. Compared to the previous examination of 12/05/2023, patchy airspace opacities in the left lower lung fi eld have resolved. Patient has chronic interstitial lung opacities however the interstitial lung opacities at this time appear somewhat more prominent and there is a small amount of fluid in the minor fissure. Mild degenerative spondylosis in the mid and lower thoracic spine. XR/XR chest 1V portable [id number] IMPRESSION: Previously demonstrated lung opacities 12/05/2023 have resolved. Remaining interstitial lung opacities appear more prominent than on more remote examinations. Possibility of early congestive heart failure to be considered.
--- NOTE | 2024-01-20 07:21 | ECG_ITS ---
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 Measurements Intervals [place] Rate: 73 P: 50 [place]: 187 QRS: 7 QRSD: 94 T: 52 QT: 348 QTc: 385 Interpretive Statements SINUS RHYTHM NONSPECIFIC T-WAVE ABNORMALITY Compared to ECG 12/05/2023 04:42:07 T-wave abnormality now present Sinus bradycardia no longer present First degree AV block no longer present Intraventricular conduction delay no longer present Electronically Signed On 01-21-2024 0:52:23 CDT by Too Mirza M.D. [email or web address] river [email or web address].[email or web address] ruby memorial [id number]
[2024-01-20 07:22] VITALS: BP 159/76; PULSE 82; RESP 18; TEMP 36.8; O2SAT 96; BMI 26.8
--- NOTE | 2024-01-20 07:25 | ED_ITS ---
HPI - General Adult 2 General: Chief complaint: General Medical Stated complaint: flu like symptoms Time Seen by Provider: 01/20/24 07:21 History of Present Illness: 68-year-old male who presents to the [facility] room with flulike symptoms for the last week productive cough chills subjective fever he has had some loose stools as well. No vomiting. He reports feeling short of breath he denies any productive cough or any hemoptysis. He does not drink or smoke but he does chew tobacco. He has no known coronary artery disease states he has had a low heart rate in the past. He does have a history of epilepsy and is on antiseizure medications has not changed any of his medications recently no recent seizures. MD complaint: cold Associated symptoms: Reports malaise; Deny chest pain, dyspnea, nausea, rash or vomiting Review of Systems 2 Const: Reports: fever(s) (Subjective), chills, fatigue and malaise Card: Denies: chest pain Resp: Denies: dyspnea GI: Reports: diarrhea; Denies: abdominal pain, nausea or vomiting : Denies: dysuria, urinary frequency or urinary urgency Musc: Denies: neck pain or back pain Skin/Breast: Denies: rash PFSH ED 2 PFSH: Medical History Inflammation of left sacroiliac joint Greater trochanteric bursitis of left hip Status epilepticus Altered mental status Breakthrough seizure NIGEL (acute kidney injury) Hypoxia Pneumonia Diarrhea Generalized seizure Migraine Family History Mother Dementia Social History Smoking and tobacco/nicotine status: current every day tobacco/nicotine user Alcohol intake: never Substance/Drug Use: never Physical Exam 2 Const: GENERAL APPEARANCE: cooperative and comfortable O RIENTATION/CONSCIOUSNESS: Yes awake, Yes oriented to person, Yes oriented to place and Yes oriented to time HENMT: COMMON NORMALS: normocephalic, atraumatic and hearing grossly normal bilaterally HEAD & SCALP: normocephalic and atraumatic Resp: COMMON NORMALS: normal respiratory effort, No retractions, No use of accessory muscles and clear to auscultation bilaterally AUSCULTATION: clear to auscultation bilaterally Cardio: COMMON NORMALS: regular rate, regular rhythm and No murmurs present (Cardio) RATE: regular rate RHYTHM: regular rhythm GI: COMMON NORMALS: Soft to palpation and No hepatosplenomegaly present A USCULTATION: Yes normoactive bowel sounds PALPATION: Yes Soft to palpation, No Tenderness to palpation present (GI), No Guarding due to palpation present (GI) and Yes No hepatosplenomegaly present Extremity: COMMON NORMALS: normal to inspection, capillary refill normal, no clubbing, cyanosis or edema, no calf tenderness and no pedal edema Neuro: SENSORIUM/ORIENTATION: Yes oriented to person, Yes oriented to place and Yes oriented to time Skin: COMMON NORMALS: no rashes or lesions noted GENERAL SKIN EXAM: no rashes or lesions noted Course 2 Vital Signs: Vital signs: Vital Signs Temperature 98.2 F 01/20/24 07:22 Pulse Rate 81 01/20/24 10:29 Respiratory Rate 16 01/20/24 10:29 Blood Pressure 111/78 01/20/24 10:29 Pulse Oximetry 94 01/20/24 10:29 Oxygen Delivery Me thod Room Air 01/20/24 10:29 [facility] - General Adult Medical Decision Making Labs and imaging reviewed. Chest x-ray that looks like he had a little bit of fluid overload although his BNP is normal. His respiratory panel was negative he has no leukocytosis there is no infiltrates on his chest x-ray. He was given Lasix 40 mg IV here. Remainder his labs are unremarkable he is been afebrile and his sats have been normal on room air. Will discharge patient home with prednisone taper and albuterol inhaler to use as needed for viral upper respiratory symptoms follow-up with his primary care provider. Lab Data 01/20/24 07:37 01/20/24 07:37 Radiology Impressions Chest X-Ray 01/20/24 07:21 IMPRESSION: Previously demonstrated lung opacities 12/05/2023 have resolved. Remaining interstitial lung opacities appear more prominent than on more remote examinations. Possibility of early congestive heart failure to be considered. Laboratory Results WBC 11.02 10^3/uL (3.29-11.43) 01/20/24 07:37 RBC 4.53 10^6/uL (3.85-5.65) 01/20/24 07:37 Hgb 13.30 g/dL (11.27-16.99) 01/20/24 07:37 Hct 40.1 % (37-53) 01/20/24 07:37 MCV 88.5 fl (82-101) 01/20/24 07:37 MCH 29.4 pg (27-33) 01/20/24 07:37 MCHC 33.2 g/dL (30-55) 01/20/24 07:37 RDW 11.9 % (12.1-15.1) L 01/20/24 07:37 Plt Count 180 10^3/cmm (157-399) 01/20/24 07:37 MPV 9.8 fL (7.4-10.4) 01/20/24 07:37 Neut % (Auto) 84.9 % 01/20/24 07:37 Lymph % (Auto) 6.5 % 01/20/24 07:37 [place] % (Auto) 6.2 % 01/20/24 07:37 Eos % (Auto) 1.8 % 01/20/24 07:37 Baso % (Auto) 0.3 % 01/20/24 07:37 Neut # (Auto) 9.36 10^3/uL (1.8-7.7) H 01/20/24 07:37 Lymph # (Auto) 0.7 10^3/uL (0.8-4.8) L 01/20/24 07:37 [place] # (Auto) 0.7 10^3/uL (0.2-0.9) 01/20/24 07:37 Eos # (Auto) 0.2 10^3/uL (0.0-0.8) 01/20/24 07:37 Baso # (Auto) 0.0 10^3/uL (0.0-0.1) 01/20/24 07:37 Nucleated RBC % (auto) 0 % 01/20/24 07:37 Nucleated RBCs # 0.0 /100WBC 01/20/24 07:37 Sodium 139 mmol/L (136-145) 01/20/24 07:37 Potassium 3.8 mmol/L (3.5-5.1) 01/20/24 07:37 Chloride 106 mmol/L (98-107) 01/20/24 07:37 Carbon Dioxide 20 mmol/L (22-29) L 01/20/24 07:37 Anion Gap 16.8 (5-19) 01/20/24 07:37 BUN 16 mg/dL (8-23) 01/20/24 07:37 Creatinine 1.1 mg/dL (0.7-1.2) 01/20/24 07:37 GFR Calculation 66.8 mL/min (90-130) L 01/20/24 07:37 Glucose 112 mg/dL (65-115) 01/20/24 07:37 Calculated Osmolality 290 mOsm/kg (285-295) 01/20/24 07:37 Lactic Acid 1.5 mmol/L (0.5-2.2) 01/20/24 07:37 Calcium 8.4 mg/dL (8.5-10.5) L 01/20/24 07:37 Total Bilirubin 0.3 mg/dL (0.15-1.2) 01/20/24 07:37 AST 20 U/L (0-40) 01/20/24 07:37 ALT 21 U/L (0-41) 01/20/24 07:37 Alkaline Phosphatase 83 U/L (40-130) 01/20/24 07:37 NT-Pro-B Natriuret Pep 53 pg/mL (0-125) 01/20/24 07:37 Total Protein 7.5 g/dL (6.6-8.7) 01/20/24 07:37 Albumin 3.8 g/dL (3.5-5.2) 01/20/24 07:37 Globulin 3.7 g/dL (1.3-4.6) 01/20/24 07:37 Urine Color Yellow (Yellow) 01/20/24 10:14 Urine Appearance Clear (CLEAR) 01/20/24 10:14 Urine pH 6 (5-7) 01/20/24 10:14 Ur Specific [place] 1.010 (1.005-1.030) 01/20/24 10:14 Urine Protein Neg (Negative) 01/20/24 10:14 Urine Glucose (UA) Norm (Normal) 01/20/24 10:14 Urine Ketones Negative (Negative) 01/20/24 10:14 Urine Blood Neg (Negative) 01/20/24 10:14 Urine Nitrate Negative (Negative) 01/20/24 10:14 Urine Bilirubin Neg (Negative) 01/20/24 10:14 Urine Urobilinogen Norm mg/dL (Negative) 01/20/24 10:14 Ur Leukocyte Esterase Negative (Negative) 01/20/24 10:14 Adenovirus (PCR) Not detected (NOT DETECT) 01/20/24 07:40 C. pneumoniae DNA (PCR) Not detected (NOT DETECT) 01/20/24 07:40 Coronavirus 229E (PCR) Not detected (NOT DETECT) 01/20/24 07:40 Human Metapneumovir PCR Not detected (NOT DETECT) 01/20/24 07:40 Influenza A (H1) PCR Not detected (NOT DETECT) 01/20/24 07:40 Influ A (H1/09) PCR Not detected (NOT DETECT) 01/20/24 07:40 Influenza A (H3) PCR Not detected (NOT DETECT) 01/20/24 07:40 Influenza Type A (PCR) Not detected (NOT DETECT) 01/20/24 07:40 Influenza Type B (PCR) Not detected (NOT DETECT) 01/20/24 07:40 M. pneumoniae (PCR) Not detected (NOT DETECT) 01/20/24 07:40 Parainfluenza 1 (PCR) Not detected (NOT DETECT) 01/20/24 07:40 Parainfluenza 2 (PCR) Not detected (NOT DETECT) 01/20/24 07:40 Parainfluenza 3 (PCR) Not detected (NOT DETECT) 01/20/24 07:40 Parainfluenza 4 (PCR) Not detected (NOT DETECT) 01/20/24 07:40 RSV Type A (PCR) Not detected (NOT DETECT) 01/20/24 07:40 RSV Type B (PCR) Not detected (NOT DETECT) 01/20/24 07:40 Entero/Rhino (PCR) Not detected (NOT DETECT) 01/20/24 07:40 SARS-CoV-2 (PCR) Not detected (NOT DETECT) 01/20/24 07:40 All radiology interpretation(s) finalized by discharge Discharge Plan Discharge Patient Disposition: Home Clinical Impression: Viral URI with cough Condition: Stable Prescriptions: New albuterol sulfate 90 mcg/actuation HFA aerosol inhaler 2 inh INHALATION Q4H PRN (Reason: shortness of breath, cough or wheezing) Qty: 18 0RF Medrol (Janak) 4 mg tablets,dose pack See Rx Instructions .ROUTE .COMPLEX Qty: 21 0RF Rx Instructions: orally per package directions No Action triamcinolone acetonide 0.5 % cream 1 applic TOPICAL DAILY PRN (Reason: Skin Irritation) ibuprofen 800 mg tablet 800 mg PO TID PRN (Reason: Pain) levetiracetam 500 mg tablet 500 mg PO TID sumatriptan succinate 100 mg tablet 100 mg PO DAILY PRN (Reason: Headache) carbamazepine 200 mg capsule, ER multiphase 12 hr 400 mg PO BID Discharge Orders: Discharge ED (Routine); Ordered 01/20/24 Ordered By: Dougie Salazar Referrals: Michael Chapman, DO [Primary Care Provider] - Discharge Diet: Usual diet Discharge Activity: Increase activity as tolerated Patient Instructions: Opioid Safety, Pain Management Activity Restrictions/Additional Instructions: Thank you for choosing [facility] for your healthcare needs today. It is very important that you follow up as instructed or that you return to the Emergency Department should you have concerns or if your condition changes or worsens in any way. You were seen today with complaint of cough chest x-ray did not show any pneumonia. There was maybe slight congestion from fluid although the rest of your labs were negative. Your EKG was normal. Your white Was normal and respiratory swab was also normal showed no infection. Recommend that you start on a steroid taper which was sent to the pharmacy along with albuterol to use as needed. Suspect your symptoms are due to a viral upper respiratory infection. Coding Level of Care Code ED Telephone Solicitor for Gabriel Clarke
[2024-01-20 07:40] VITALS: BP 159/76; PULSE 78; RESP 18; O2SAT 93
[2024-01-20 07:50] LABS: Basophils % 0.3 %; Eosinophils # 0.2 10^3/uL (0.0-0.8); Eosinophils % 1.8 %; Hematocrit 40.1 % (37-53); Lymphocytes # 0.7 10^3/uL (0.8-4.8); Lymphocytes % 6.5 %; Mean Corpuscular HGB Conc 33.2 g/dL (30-55); Mean Corpuscular Hemoglobin 29.4 pg (27-33); Mean Corpuscular Volume 88.5 fl (82-101); Mean Platelet Volume 9.8 fL (7.4-10.4); Monocytes # 0.7 10^3/uL (0.2-0.9); Monocytes % 6.2 %; Neutrophils # 9.36 10^3/uL (1.8-7.7); Neutrophils % 84.9 %; Nucleated Red Blood Cells % 0 %; Platelet Count 180 10^3/cmm (157-399); Red Blood Count 4.53 10^6/uL (3.85-5.65); Red Cell Distribution Width 11.9 % (12.1-15.1); White Blood Count 11.02 10^3/uL (3.29-11.43)
[2024-01-20 08:07] LABS: Alanine Aminotransferase 21 U/L (0-41); Albumin Level 3.8 g/dL (3.5-5.2); Alkaline Phosphatase 83 U/L (40-130); Anion Gap 16.8 (5-19); Aspartate Amino Transferase 20 U/L (0-40); Blood Urea Nitrogen 16 mg/dL (8-23); Calcium 8.4 mg/dL (8.5-10.5); Carbon Dioxide 20 mmol/L (22-29); Chloride 106 mmol/L (98-107); Creatinine Clr Calc Pharmacy 96.1712; Globulin 3.7 g/dL (1.3-4.6); Glomerular Filtration Rate 66.8 mL/min (90-130); Glucose 112 mg/dL (65-115); Osmolality Calculated 290 mOsm/kg (285-295); Potassium 3.8 mmol/L (3.5-5.1); Sodium 139 mmol/L (136-145); Total Bilirubin 0.3 mg/dL (0.15-1.2); Total Protein 7.5 g/dL (6.6-8.7)
[2024-01-20 08:08] LABS: Lactic Sepsis W/Reflex 1.5 mmol/L (0.5-2.2)
[2024-01-20 09:31] LABS: Adenovirus Not Detected (NOT DETECT); Chlamydia Pneumoniae Not Detected (NOT DETECT); Coronavirus 229E,HKU1,NL63,OC4 Not Detected (NOT DETECT); Human Metapneumovirus Not Detected (NOT DETECT); Human Rhinovirus/Enterovirus Not Detected (NOT DETECT); Influenza A Not Detected (NOT DETECT); Influenza A H1 Not Detected (NOT DETECT); Influenza A H1-2009 Not Detected (NOT DETECT); Influenza A H3 Not Detected (NOT DETECT); Influenza B Not Detected (NOT DETECT); Mycoplasma Pneumoniae Not Detected (NOT DETECT); Parainfluenza Virus Type 1 Not Detected (NOT DETECT); Parainfluenza Virus Type 2 Not Detected (NOT DETECT); Parainfluenza Virus Type 3 Not Detected (NOT DETECT); Parainfluenza Virus Type 4 Not Detected (NOT DETECT); Respiratory Syncytial Virus A Not Detected (NOT DETECT); Respiratory Syncytial Virus B Not Detected (NOT DETECT); SARS-COV-2 Not Detected (NOT DETECT)
[2024-01-20 09:49] LABS: NT Pro B Type Natriuretic Pept 53 pg/mL (0-125)
[2024-01-20] MEDS: FUROsemide 10 mg/mL SDV 4mL 40 MG IVP (09:55)
[2024-01-20 09:57] VITALS: BP 125/76; PULSE 69; RESP 18; O2SAT 94
[2024-01-20 10:25] LABS: Add Urine Microscopic? NO; Charge for UA Resulting for Rev
[2024-01-20 10:29] VITALS: BP 111/78; PULSE 81; RESP 16; O2SAT 94
[2024-01-20 10:36] LABS: Bilirubin Urine Neg (Negative); Blood Urine Neg (Negative); Glucose Urine UA Norm (Normal); Ketones Urine Negative (Negative); Leukocyte Esterase Urine Negative (Negative); Nitrate Urine Negative (Negative); Protein Urine Neg (Negative); Urine Appearance Clear (CLEAR); Urine Color Yellow (Yellow); Urobilinogen Urine Norm (Negative); pH Urine 6 (5-7)
== END 2024-01-20 10:55 | disposition home or self-care (01) ==
PROVIDERS: Emergency Provider Family Medicine; PCP Electrodiagnostic Medicine
DX: J06.9 Acute upper respiratory infection, unspecified (principal); R05.9 Cough, unspecified; Z11.52 Encounter for screening for COVID-19; Z72.0 Tobacco use
CPT/HCPCS: 36415; 71045; 80053; 81003; 83605; 83880; 85025; 87040; 87486; 87581; 87633; 93005; 96374; 99285; J1940

== ENCOUNTER 2024-02-23 15:53 | Emergency (ER) | payer MEDICARE, MEDICAID, SELFPAY ==
--- NOTE | 2024-02-23 15:56 | USR_ITS ---
PROCEDURE INFORMATION: Exam: US Duplex Left Lower Extremity Veins, Limited Exam date and time: 02/23/2024 4:01 PM Age: 68 years old Clinical indication: Pain; Leg, lower; Left TECHNIQUE: Imaging protocol: Real-time duplex ultrasound of the left extremity with 2-D hogan scale, color Doppler flow and spectral waveform analysis including responses to compression and other maneuvers (when performed) with image documentation. Limited exam focused on the left lower extremity veins. COMPARISON: No relevant prior studies available. FINDINGS: Left deep veins: Unremarkable. The common femoral, femoral, proximal profunda femoral and popliteal veins as well as the visualized deep veins of the lower leg are patent without thrombus. Normal Doppler waveforms. Normal compressibility and/or augmentation response. Superficial veins: Greater saphenous vein at the saphenofemoral junction is patent without thrombus. Soft tissues: Edematous changes are seen. US/[place] [id number] IMPRESSION: No evidence of deep vein thrombosis.
[2024-02-23 16:03] VITALS: BP 102/70; PULSE 91; RESP 18; TEMP 36.4; O2SAT 97; BMI 29.3
--- NOTE | 2024-02-23 16:20 | XRR_ITS ---
PROCEDURE INFORMATION: Exam: XR Left Tibia and Fibula Exam date and time: 02/23/2024 4:25 PM Age: 68 years old Clinical indication: Edema; No, it is generalized; Patient HX: Lle swelling no trauma; Additional info: Infection TECHNIQUE: Imaging protocol: Radiologic exam of the left tibia and fibula. Views: 2 views. COMPARISON: No relevant prior studies available. FINDINGS: Bones/joints: Normal. Soft tissues: Normal. XR/XR tibia fibula LT 2V [id number] IMPRESSION: No acute findings.
[2024-02-23 16:36] LABS: Basophils % 0.4 %; Eosinophils # 0.2 10^3/uL (0.0-0.8); Eosinophils % 2.3 %; Hematocrit 40.3 % (37-53); Lymphocytes # 0.9 10^3/uL (0.8-4.8); Lymphocytes % 9.5 %; Mean Corpuscular HGB Conc 31.5 g/dL (30-55); Mean Platelet Volume 10.2 fL (7.4-10.4); Monocytes # 0.6 10^3/uL (0.2-0.9); Monocytes % 6.2 %; Neutrophils # 7.66 10^3/uL (1.8-7.7); Neutrophils % 81.3 %; Nucleated Red Blood Cells % 0 %; Platelet Count 201 10^3/cmm (157-399); Red Blood Count 4.38 10^6/uL (3.85-5.65); Red Cell Distribution Width 13.2 % (12.1-15.1); White Blood Count 9.43 10^3/uL (3.29-11.43)
[2024-02-23 16:45] LABS: Erythrocyte Sedimentation Rate 14 mm/hr (0-10)
[2024-02-23 16:56] LABS: Lactic Sepsis W/Reflex 1.3 mmol/L (0.5-2.2)
--- NOTE | 2024-02-23 16:56 | ED_ITS ---
HPI - Extremity Problem 2 General: Chief complaint: Extremity Problem,Nontraumatic Stated complaint: left leg pain/swelling Time Seen by Provider: 02/23/24 16:15 History of Present Illness: 68-year-old man with a history of seizur e disorder and migraines who presents to the emergency room with left lower extremity swelling and redness. This has been present for months now he says. He has been followed by his primary who actually sent him here today. He has been on multiple rounds of antibiotics. He says it actually looks better today than it normally does. No chest pain. No shortness of breath. No fevers. Related Data Home Medications Medication Instructions Recorded Confirmed carbamazepine 200 mg 400 mg PO BID 01/20/24 01/30/24 capsule,extended release [id number] ibuprofen 800 mg tablet 800 mg PO TID PRN Pain 01/20/24 01/30/24 levetiracetam 500 mg tablet 500 mg PO TID 01/20/24 01/30/24 sumatriptan succinate 100 mg tablet 100 mg PO DAILY PRN Headache 01/20/24 01/30/24 triamcinolone acetonide 0.5 % 1 applic topical DAILY PRN Skin 01/20/24 01/30/24 topical cream Irritation Previous Rx's Medication Instructions Recorded albuterol sulfate 90 mcg/actuation 2 inh inhalation Q4H PRN shortness 01/20/24 aerosol inhaler of breath, cough or wheezing #18 grams sulfamethoxazole 800 1 tab PO BID 7 days #14 tabs 01/30/24 mg-trimethoprim 160 mg tablet (Bactrim DS) Allergies Allergy/AdvReac Type Severity Reaction Status Date / Time No Known Allergies Allergy Verified 01/30/24 11:27 Review of Systems 2 Narrative: Constitutional symptoms: Negative except as documented in HPI. Skin symptoms: Negative except as documented in HPI. Eye symptoms: Negative except as documented in HPI. ENMT symptoms: Negative except as documented in HPI. Respiratory symptoms: Negative except as documented in HPI. Cardiovascular symptoms: Negative except as documented in HPI. Gastrointestinal symptoms: Negative except as documented in HPI. Genitourinary symptoms: Negative except as documented in HPI. Musculoskeletal symptoms: Negative except as documented in HPI. Neurologic symptoms: Negative except as documented in HPI. Psychiatric symptoms: Negative except as documented in HPI. Endocrine symptoms: Negative except as documented in HPI. PFSH ED 2 PFSH: Medical History Inflammation of left sacroiliac joint Greater trochanteric bursitis of left hip Status epilepticus Altered mental status Breakthrough seizure NIGEL (acute kidney injury) Hypoxia Pneumonia Diarrhea Generalized seizure Migraine Family History Mother Dementia Social History Smoking and tobacco/nicotine status: unknown if used tobacco/nicotine Alcohol intake: never Substance/Drug Use: never Physical Exam 2 Narrative: EXAM NARRATIVE: General: Alert, no acute distress. Skin: Warm, dry. Head: Normocephalic, atraumatic. Neck: Supple, trachea midline. Eye: Extraocular movements are intact. Ears, nose, mouth and throat: mucosa moist. Cardiovascular: Regular, Normal peripheral perfusion. Respiratory: Lungs are clear to auscultation, respirations are non-labored, breath sounds are equal, Symmetrical chest wall expansion. Gastrointestinal: Soft, Nontender, Non distended Musculoskeletal: Normal ROM, no deformity. Diffuse erythema of the mills of the left leg medially. There are some ulcerated type lesions Neurological: Alert and oriented, No focal neurological deficit observed. Psychiatric: Cooperative, appropriate mood & affect. Course 2 Vital Signs: Vital signs: Vital Signs Temperature 97.6 F 02/23/24 16:03 Pulse Rate 91 02/23/24 16:03 Respiratory Rate 18 02/23/24 16:03 Blood Pressure 102/70 02/23/24 16:03 Pulse Oximetry 97 02/23/24 16:03 Oxygen Delivery Me thod Room Air 02/23/24 16:03 MDM - Extremity (Nontraumatic) Medical Decision Making Medical decision making: Differential diagnosis including but not limited to and based on the above HPI, review of systems and physical exam: DVT, infection, autoimmune disorder, osteomyelitis Orders placed to evaluate differential diagnosis based on the above differential, HPI and physical exam Lab Review: Laboratory results were reviewed and interpreted by myself the emergency room physician. No leukocytosis. ESR is mildly elevated at 14. CRP is not elevated. White count is not elevated. Pro-Ashish is not elevated. X-ray of the tibia and fibula: No acute process. No osteomyelitis. This was reviewed and interpreted by myself the emergency room physician. I also reviewed the radiology report. Consultation: I spoke with Dr. Lopez. He has reviewed lab work and imaging and will follow with the patient in clinic next week. I reviewed the patient's medical record. Reexamination: Remained stable. No increased work of breathing. No change in the rash. No altered mental status. He is currently on Levaquin and has had improvement in his symptoms while on Levaquin. I will continue him on this. Assessment and plan: Cellulitis - Discharged home - Discussed findings and plan with patient. Answered any questions. - All laboratory values were reviewed and interpreted personally by myself, the ER physician - All imaging was reviewed and interpreted personally by myself, the ER physician. - Evaluation and treatment of this problem were appropriate in the emergency setting Lab Data 02/23/24 16:26 02/23/24 16:26 Radiology Impressions Tibia/Fibula X-Ray 02/23/24 16:20 IMPRESSION: No acute findings. Laboratory Results WBC 9.43 10^3/uL (3.29-11.43) 02/23/24 16: RBC 4.38 10^6/uL (3.85-5.65) 02/23/24 16:26 Hgb 12.70 g/dL (11.27-16.99) 02/23/24 16: Hct 40.3 % (37-53) 02/23/24 16: MCV 92.0 fl (82-101) 02/23/24 16: MCH 29.0 pg (27-33) 02/23/24 16: MCHC 31.5 g/dL (30-55) 02/23/24 16:26 RDW 13.2 % (12.1-15.1) 02/23/24 16:26 Plt Count 201 10^3/cmm (157-399) 02/23/24 16: MPV 10.2 fL (7.4-10.4) 02/23/24 16: Neut % (Auto) 81.3 % 02/23/24 16: Lymph % (Auto) 9.5 % 02/23/24 16: [place] % (Auto) 6.2 % 02/23/24 16:26 Eos % (Auto) 2.3 % 02/23/24 16:26 Baso % (Auto) 0.4 % 02/23/24 16:26 Neut # (Auto) 7.66 10^3/uL (1.8-7.7) 02/23/24 16:26 Lymph # (Auto) 0.9 10^3/uL (0.8-4.8) 02/23/24 16:26 [place] # (Auto) 0.6 10^3/uL (0.2-0.9) 02/23/24 16:26 Eos # (Auto) 0.2 10^3/uL (0.0-0.8) 02/23/24 16:26 Baso # (Auto) 0.0 10^3/uL (0.0-0.1) 02/23/24 16: Nucleated RBC % (auto) 0 % 02/23/24 16: Nucleated RBCs # 0.0 /100WBC 02/23/24 16:26 ESR 14 mm/hr (0-10) H 02/23/24 16:26 Sodium 134 mmol/L (136-145) L 02/23/24 16:26 Potassium 3.9 mmol/L (3.5-5.1) 02/23/24 16:26 Chloride 99 mmol/L (98-107) 02/23/24 16:26 Carbon Dioxide 24 mmol/L (22-29) 02/23/24 16:26 Anion Gap 14.9 (5-19) 02/23/24 16:26 BUN 16 mg/dL (8-23) 02/23/24 16:26 Creatinine 1.2 mg/dL (0.7-1.2) 02/23/24 16:26 GFR Calculation 60.4 mL/min (90-130) L 02/23/24 16:26 Glucose 107 mg/dL (65-115) 02/23/24 16:26 Calculated Osmolality 280 mOsm/kg (285-295) L 02/23/24 16:26 Lactic Acid 1.3 mmol/L (0.5-2.2) 02/23/24 16:26 Calcium 8.4 mg/dL (8.5-10.5) L 02/23/24 16:26 Total Bilirubin 0.2 mg/dL (0.15-1.2) 02/23/24 16:26 AST 26 U/L (0-40) 02/23/24 16:26 ALT 18 U/L (0-41) 02/23/24 16:26 Alkaline Phosphatase 95 U/L (40-130) 02/23/24 16:26 C-Reactive Protein 6.3 mg/L (0.0-4.9) H 02/23/24 16:26 Total Protein 7.1 g/dL (6.6-8.7) 02/23/24 16:26 Albumin 3.6 g/dL (3.5-5.2) 02/23/24 16:26 Globulin 3.5 g/dL (1.3-4.6) 02/23/24 16:26 Procalcitonin 0.12 ng/mL (0-0.5) 02/23/24 16:26 All radiology interpretation(s) finalized by discharge Discharge Plan Discharge Patient Disposition: Home Clinical Impression: Cellulitis Condition: Stable Prescriptions: No Action sulfamethoxazole-trimethoprim [Bactrim DS] 800-160 mg tablet 1 tab PO BID 7 Days Qty: 14 0RF triamcinolone acetonide 0.5 % cream 1 applic TOPICAL DAILY PRN (Reason: Skin Irritation) ibuprofen 800 mg tablet 800 mg PO TID PRN (Reason: Pain) levetiracetam 500 mg tablet 500 mg PO TID sumatriptan succinate 100 mg tablet 100 mg PO DAILY PRN (Reason: Headache) carbamazepine 200 mg capsule, ER multiphase 12 hr 400 mg PO BID albuterol sulfate 90 mcg/actuation HFA aerosol inhaler 2 inh INHALATION Q4H PRN (Reason: shortness of breath, cough or wheezing) Qty: 18 0RF Discharge Orders: Discharge ED (Routine); Ordered 02/23/24 Ordered By: Argelia Brand Referrals: Santy Lopez, VERONICAM [Physician] - (Please follow-up with Dr. Cook in the next 4 to 7 days. If you do not hear from his clinic call them) Michael Chapman DO [Primary Care Provider] - Discharge Diet: Usual diet Discharge Activity: Increase activity as tolerated Patient Instructions: Cellulitis (ED) Activity Restrictions/Additional Instructions: Thank you for choosing [facility] for your healthcare needs today. Please realize this is an emergency room and that we are providing you with a medical screening exam and this may not be complete and all inclusive of all the testing and or work up that you may need to determine your ailment or severity of your illness. You have been screened and evaluated and felt safe for discharge. Health conditions do change or evolve sometimes and as such it is important that you follow up with your Primary Doctor to be re checked, 3-5 days is a general good time frame for follow up. You are always welcome to return to the ED for re assessment if your symptoms are worsening or you have new concerns Coding Level of Care Code ED Supervisor Of Research for Gabriel Clarke
[2024-02-23 16:57] LABS: Alanine Aminotransferase 18 U/L (0-41); Albumin Level 3.6 g/dL (3.5-5.2); Alkaline Phosphatase 95 U/L (40-130); Anion Gap 14.9 (5-19); Aspartate Amino Transferase 26 U/L (0-40); Blood Urea Nitrogen 16 mg/dL (8-23); C Reactive Protein 6.3 mg/L (0.0-4.9); Calcium 8.4 mg/dL (8.5-10.5); Carbon Dioxide 24 mmol/L (22-29); Chloride 99 mmol/L (98-107); Creatinine Clr Calc Pharmacy 91.8056; Globulin 3.5 g/dL (1.3-4.6); Glomerular Filtration Rate 60.4 mL/min (90-130); Glucose 107 mg/dL (65-115); Osmolality Calculated 280 mOsm/kg (285-295); Potassium 3.9 mmol/L (3.5-5.1); Sodium 134 mmol/L (136-145); Total Bilirubin 0.2 mg/dL (0.15-1.2); Total Protein 7.1 g/dL (6.6-8.7)
[2024-02-23 17:04] LABS: Procalcitonin 0.12 ng/mL (0-0.5)
[2024-02-23 17:48] VITALS: BP 117/77; PULSE 69; O2SAT 94
[2024-02-23 18:00] VITALS: BP 112/73; PULSE 68; O2SAT 92
== END 2024-02-23 18:02 | disposition home or self-care (01) ==
PROVIDERS: Emergency Provider Emergency Medicine; PCP Electrodiagnostic Medicine
DX: L03.116 Cellulitis of left lower limb (principal)
CPT/HCPCS: 36415; 73590; 80053; 83605; 84145; 85025; 85651; 86140; 93971; 99284

== ENCOUNTER 2024-02-24 20:00 | Emergency (ER) | payer MEDICARE, MEDICAID, SELFPAY ==
[2024-02-24 20:05] VITALS: BP 121/80; PULSE 87; RESP 18; TEMP 36.5; O2SAT 94; BMI 30.7
[2024-02-24 20:26] VITALS: BP 94/65; PULSE 73; RESP 16; O2SAT 97
[2024-02-24 20:39] VITALS: BP 103/87; PULSE 76; RESP 17; O2SAT 94
--- NOTE | 2024-02-24 20:42 | W.ED.EXTPRO ---
HPI - Extremity Problem General: Chief complaint: Extremity Problem,Nontraumatic Stated complaint: infection in left leg Time Seen by Provider: 02/24/24 20:11 History of Present Illness: Patient presents for department with complaint of cellulitis of the left lower extremity. He has been on Bactrim prior and now recent and the Levaquin for the past 3 days. He was seen yesterday and had blood work which showed no significant abnormality. No leukocytosis. No fever. States that his actually has started to improve. He came back again today because his son was concerned for gangrene . Patient has no evidence of gangrene on physical exam. Related Data Home Medications Medication Instructions Recorded Confirmed carbamazepine 200 mg 400 mg PO BID 01/20/24 01/30/24 capsule,extended release [id number] ibuprofen 800 mg tablet 800 mg PO TID PRN Pain 01/20/24 01/30/24 levetiracetam 500 mg tablet 500 mg PO TID 01/20/24 01/30/24 sumatriptan succinate 100 mg tablet 100 mg PO DAILY PRN Headache 01/20/24 01/30/24 triamcinolone acetonide 0.5 % 1 applic topical DAILY PRN Skin 01/20/24 01/30/24 topical cream Irritation Previous Rx's Medication Instructions Recorded albuterol sulfate 90 mcg/actuation 2 inh inhalation Q4H PRN shortness 01/20/24 aerosol inhaler of breath, cough or wheezing #18 grams sulfamethoxazole 800 1 tab PO BID 7 days #14 tabs 01/30/24 mg-trimethoprim 160 mg tablet (Bactrim DS) Allergies Allergy/AdvReac Type Severity Reaction Status Date / Time No Known Allergies Allergy Verified 01/30/24 11:27 [facility] ED PFSH: Medical History Inflammation of left sacroiliac joint Greater trochanteric bursitis of left hip Status epilepticus Altered mental status Breakthrough seizure NIGEL (acute kidney injury) Hypoxia Pneumonia Diarrhea Generalized seizure Migraine Family History Mother Dementia Social History Smoking and tobacco/nicotine status: unknown if used tobacco/nicotine Alcohol intake: never Substance/Drug Use: never Physical Exam Const: COMMON NORMALS: no acute distress, average body habitus, patient oriented x3, no limitations, healthy appearing, alert and well nourished Neck/C-Spine: COMMON NORMALS: no JVD Resp: COMMON NORMALS: normal respiratory effort, No retractions, No use of accessory muscles, clear to auscultation bilaterally and percussion normal AUSCULTATION: clear to auscultation bilaterally PERCUSSION: percussion normal Cardio: COMMON NORMALS: no JVD, regular rate, regular rhythm, S1 normal heart sound present, S2 normal heart sound present, No gallops present (Cardio), No clicks present (Cardio), No murmurs present (Cardio), No rub (Cardio) and Peripheral pulses 2+ throughout RATE: regular rate RHYTHM: regular rhythm HEART SOUNDS: S1 normal heart sound present and S2 normal heart sound present PERIPHERAL PULSES: Peripheral pulses 2+ throughout Extremity: NARRATIVE EXTREMITY EXAM: Left lower extremity with some mild redness and soft tissue swelling from the mid calf down to about the ankle. On the medial aspect there is a small ulceration with some purulence. There is no evidence of abscess underneath with no fluctuance or induration. Neuro: COMMON NORMALS: patient oriented x3 SENSORIUM/ORIENTATION: Yes alert Course Vital Signs: Vital signs: Vital Signs Temperature 97.7 F 02/24/24 20:05 Pulse Rate 87 02/24/24 20:05 Respiratory Rate 18 02/24/24 20:05 Blood Pressure 121/80 02/24/24 20:05 Pulse Oximetry 94 02/24/24 20:05 Oxygen Delivery Me thod Room Air 02/24/24 20:05 MDM - Extremity (Nontraumatic) Medical Decision Making Patient presents for department with complaint of cellulitis of the left lower extremity. He has been on Bactrim prior and now recent and the Levaquin for the past 3 days. He was seen yesterday and had blood work which showed no significant abnormality. No leukocytosis. No fever. States that his actually has started to improve. He came back again today because his son was concerned for gangrene . Patient has no evidence of gangrene on physical exam, he does have some evidence of cellulitis but there is no evidence of ischemia of the foot. There is no gangrenous tissue. There is no crepitus noted. A culture was taken and patient was given a gram of IM Rocephin. Patient already has follow-up with podiatry and he is already on antibiotics and per report symptoms are improving. Patient was reassured that at this time I do not see any evidence of gangrene or sepsis. Do not believe patient needs to be admitted or have any further workup done at this time other than continued antibiotics. Culture was sent. No radiology studies performed this visit Discharge Plan Discharge Patient Disposition: Home Clinical Impression: Cellulitis Condition: Stable Prescriptions: No Action sulfamethoxazole-trimethoprim [Bactrim DS] 800-160 mg tablet 1 tab PO BID 7 Days Qty: 14 0RF triamcinolone acetonide 0.5 % cream 1 applic TOPICAL DAILY PRN (Reason: Skin Irritation) ibuprofen 800 mg tablet 800 mg PO TID PRN (Reason: Pain) levetiracetam 500 mg tablet 500 mg PO TID sumatriptan succinate 100 mg tablet 100 mg PO DAILY PRN (Reason: Headache) carbamazepine 200 mg capsule, ER multiphase 12 hr 400 mg PO BID albuterol sulfate 90 mcg/actuation HFA aerosol inhaler 2 inh INHALATION Q4H PRN (Reason: shortness of breath, cough or wheezing) Qty: 18 0RF Discharge Orders: Discharge ED (Routine); Ordered 02/24/24 Ordered By: David Roach Referrals: Michael Chapman DO [Primary Care Provider] - Patient Instructions: Opioid Safety, Pain Management Activity Restrictions/Additional Instructions: Continue taking the antibiotics as prescribed and 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 Cultures were taken which should be back within 2 days or more directed treatment of the antibiotic choice. Coding Level of Care Code ED Affirmative Action Specialist for Gabriel Clarke
[2024-02-24] MEDS: cefTRIAXone 1,000 MG in water for injection-sterile 2.1 ML 60 MG IM (20:48)
[2024-02-24 21:01] VITALS: BP 134/78; PULSE 74; RESP 16; O2SAT 92
[2024-02-24 21:06] VITALS: RESP 15
== END 2024-02-24 21:08 | disposition home or self-care (01) ==
PROVIDERS: Emergency Provider Emergency Medicine; PCP Electrodiagnostic Medicine
DX: L03.116 Cellulitis of left lower limb (principal)
CPT/HCPCS: 87070; 96372; 99284; J0696

== ENCOUNTER 2024-02-29 12:55 | Outpatient (CLI) | payer MEDICARE, MEDICAID, SELFPAY ==
--- NOTE | 2024-02-29 13:00 | USCV_ITS ---
Jose Starr Age: 68 Gender: M : 1955 Exam Date: 02/29/2024 13:09 Ordering Phys: Michael Chapman DO Technologist: SHANIQUE [place] [facility] [place]: htn chf sob BP: / HR: 66 Rhythm: Sinus Technical Quality: Adequate MEASUREMENTS (Male / Female) Normal Values 2D ECHO LV Diastolic Diameter PLAX 3.6 cm 4.2 - 5.9 / 3.9 - 5.3 cm IVS Diastolic Thickness 1.2 cm 0.6 - 1.0 / 0.6 - 0.9 cm IVS Systolic Thickness 1.5 cm LVPW Diastolic Thickness 1.5 cm 0.6 - 1.0 / 0.6 - 0.9 cm LVPW Systolic Thickness 1.6 cm LVOT Diameter 2.4 cm LV Ejection Fraction 2D Teich 78.2 % LV Ejection Fraction MOD 4C 35.9 % LV Ejection Fraction MOD 2C 56.6 % LV Ejection Fraction 2C AL 62.4 % LA Diameter 2.6 cm RA Systolic Volume 4C AL 31.7 ml RA Systolic Volume 4C MOD 29.5 ml LA Sys Volume AL 26.9 cm cubed LA Sys Volume Index AL 9.8 cm cubed/m squared Aorta at Sinotubular Diameter 3.8 cm IVC Diameter 2.0 cm M-MODE LA Ao Ratio MM 0.5 AV Cusp Separation MM 1.9 cm DOPPLER AV Peak Velocity 155.0 cm/s LVOT Peak Velocity 101.0 cm/s AV Area Cont Eq vti 3.6 cm squared AV Area Cont Eq pk 2.9 cm squared MV Area PHT 4.7 cm squared Mitral E to A Ratio 0.8 TV Peak Velocity 254.0 cm/s TR Peak Velocity 259.0 cm/s TR Peak Gradient 26.8 mmHg TR Mean Velocity 178.0 cm/s TR Mean Gradient 13.9 mmHg TR Velocity Time Integral 52.9 cm TV Peak E Velocity 53.0 cm/s PV Peak Velocity 121.0 cm/s FINDINGS Left Ventricle Normal left ventricular size and systolic function, EF 62%. Mild concentric left ventricular hypertrophy.no regional wall motion abnormalities. Some features of grade 1 left-ventricular diastolic dysfunction Right Ventricle The right ventricle is normal in size and function. Right Atrium The right atrium is normal in size. Left Atrium The left atrium is normal in size. Mitral Valve No gross abnormalities noted Aortic Valve Thickened noncoronary cusp of the aortic valve. Tricuspid Valve Trace to mild tricuspid valve regurgitation. Pulmonic Valve Mild pulmonary valve regurgitation. Pericardium Normal pericardium without effusion. Aorta Mildly dilated aortic root-sinotubular junction measuring 3.75 cm and the ascending aorta measured 3.8 cm IVC Normal inferior vena cava. CONCLUSIONS Normal left ventricular size and systolic function, EF 62%. Mild concentric left ventricular hypertrophy. No regional wall motion abnormalities. Some features of grade 1 left-ventricular diastolic dysfunction Thickened noncoronary cusp of the aortic valve. Trace to mild tricuspid valve regurgitation. Mild pulmonary valve regurgitation. Mildly dilated aortic root-sinotubular junction measuring 3.75 cm and the ascending aorta measured 3.8 cm. There is no pericardial effusion. There are no intracardiac masses. No similar previous studies are available for comparison Dr Too Mirza MD FACC (Electronically Signed) Final Date: 02 March 2024 08:43 S
== END 2024-02-29 12:56 | disposition home or self-care (01) ==
LOC: RAD 12:56
PROVIDERS: PCP Electrodiagnostic Medicine; Visit Provider Electrodiagnostic Medicine
DX: I11.0 Hypertensive heart disease with heart failure (principal); I35.8 Other nonrheumatic aortic valve disorders
CPT/HCPCS: 93306

== ENCOUNTER → 2024-03-01 14:26 | Outpatient (BNVA) | payer MEDICARE, MEDICAID, SELFPAY | PROVIDERS: PCP Electrodiagnostic Medicine; Visit Provider Podiatrist Foot & Ankle Surgery | DX: R60.9 Edema, unspecified; L03.116 Cellulitis of left lower limb | CPT/HCPCS: 99203 ==

== ENCOUNTER 2024-03-24 06:00 | Outpatient (RCR) | payer MEDICARE, MEDICAID, SELFPAY | END 2024-03-27 23:59 | disposition home or self-care (01) | LOC: SPT 06:00 | PROVIDERS: PCP Electrodiagnostic Medicine; Visit Provider Electrodiagnostic Medicine | DX: M62.81 Muscle weakness (generalized) (principal) | CPT/HCPCS: 97161 ==

== ENCOUNTER 2024-03-28 06:00 | Outpatient (RCR) | payer MEDICARE, MEDICAID, SELFPAY | END 2024-04-27 23:59 | disposition home or self-care (01) | LOC: SPT 06:00 | PROVIDERS: PCP Electrodiagnostic Medicine; Visit Provider Electrodiagnostic Medicine | DX: M62.81 Muscle weakness (generalized) (principal) | CPT/HCPCS: 97110 ==

== ENCOUNTER → 2024-05-30 10:29 | Outpatient (BNVA) | payer MEDICARE, MEDICAID, SELFPAY | PROVIDERS: PCP Electrodiagnostic Medicine; Visit Provider Nurse Practitioner Family | DX: L29.89 Other pruritus (principal); L50.3 Dermatographic urticaria; L82.1 Other seborrheic keratosis; D18.01 Hemangioma of skin and subcutaneous tissue; T81.89XA Other complications of procedures, not elsewhere classified, initial encounter; X58.XXXA Exposure to other specified factors, initial encounter; L91.8 Other hypertrophic disorders of the skin; L53.8 Other specified erythematous conditions; B07.8 Other viral warts | CPT/HCPCS: 17110; 99203 ==

== ENCOUNTER → 2024-07-04 10:29 | Outpatient (BNVA) | payer MEDICARE, MEDICAID, SELFPAY | PROVIDERS: PCP Electrodiagnostic Medicine; Visit Provider Nurse Practitioner Family | DX: L29.89 Other pruritus (principal); B07.8 Other viral warts; T81.89XA Other complications of procedures, not elsewhere classified, initial encounter; X58.XXXA Exposure to other specified factors, initial encounter | CPT/HCPCS: 99213 ==

== ENCOUNTER 2024-08-11 21:21 | Emergency (ER) | payer MEDICARE, MEDICAID, SELFPAY ==
[2024-08-11 21:30] VITALS: BP 137/88; PULSE 74; RESP 18; TEMP 36.4; O2SAT 97; BMI 29.9
[2024-08-11 22:09] LABS: Basophils % 0.8 %; Eosinophils # 0.2 10^3/uL (0.0-0.8); Eosinophils % 4.1 %; Hematocrit 41.1 % (37-53); Lymphocytes # 1.2 10^3/uL (0.8-4.8); Lymphocytes % 25.3 %; Mean Corpuscular HGB Conc 31.6 g/dL (30-55); Mean Corpuscular Hemoglobin 27.3 pg (27-33); Mean Corpuscular Volume 86.3 fl (82-101); Mean Platelet Volume 10.5 fL (7.4-10.4); Monocytes # 0.4 10^3/uL (0.2-0.9); Neutrophils # 2.95 10^3/uL (1.8-7.7); Neutrophils % 60.6 %; Nucleated Red Blood Cells % 0 %; Platelet Count 188 10^3/cmm (157-399); Red Blood Count 4.76 10^6/uL (3.85-5.65); Red Cell Distribution Width 13.8 % (12.1-15.1); White Blood Count 4.87 10^3/uL (3.29-11.43)
[2024-08-11 22:34] LABS: Alanine Aminotransferase 16 U/L (0-41); Albumin Level 4.3 g/dL (3.5-5.2); Alkaline Phosphatase 90 U/L (40-130); Anion Gap 15.8 (5-19); Aspartate Amino Transferase 22 U/L (0-40); Blood Urea Nitrogen 13 mg/dL (8-23); Calcium 8.6 mg/dL (8.5-10.5); Carbon Dioxide 24 mmol/L (22-29); Chloride 100 mmol/L (98-107); Creatinine Clr Calc Pharmacy 121.9804; Glomerular Filtration Rate 83.9 mL/min (90-130); Glucose 97 mg/dL (65-115); Lipase 32 U/L (13-60); Osmolality Calculated 282 mOsm/kg (285-295); Potassium 3.8 mmol/L (3.5-5.1); Sodium 136 mmol/L (136-145); Total Bilirubin 0.3 mg/dL (0.15-1.2); Total Protein 8.3 g/dL (6.6-8.7)
== END 2024-08-11 22:06 | disposition left against medical advice (07) ==
PROVIDERS: Physician Assistant; Emergency Provider Family Medicine; PCP Electrodiagnostic Medicine
DX: Z53.21 Procedure and treatment not carried out due to patient leaving prior to being seen by health care provider (principal)
CPT/HCPCS: 36415; 80053; 83690; 85025

== ENCOUNTER → 2024-12-26 13:06 | Outpatient (BNVA) | payer MEDICARE, MEDICAID, SELFPAY | PROVIDERS: PCP Electrodiagnostic Medicine; Visit Provider Nurse Practitioner Family | DX: L29.89 Other pruritus (principal); T81.89XA Other complications of procedures, not elsewhere classified, initial encounter; L30.9 Dermatitis, unspecified; L91.8 Other hypertrophic disorders of the skin; R20.9 Unspecified disturbances of skin sensation; R20.8 Other disturbances of skin sensation; R23.8 Other skin changes; L53.8 Other specified erythematous conditions; X58.XXXA Exposure to other specified factors, initial encounter | CPT/HCPCS: 11104; 17110; 99214 ==

== ENCOUNTER 2025-01-02 18:10 | Emergency (ER) | payer OTHER, MEDICAID, SELFPAY ==
--- OUTSIDE RECORDS SUMMARY | 2018-04-15 02:00 | XMS_ITS | Continuity of Care Document ---
Author Organization [facility] Address [address] [id number] [address] Phone Care Team Providers Care Coding Spec Name Role Phone Maribeth Prabhakar NP Unavailable Unavailable Allergies, Adverse Reactions, Alerts Substance Reaction Status Criticality No Known Allergies Active No Inform ation Medications Medication Instructions Dosage Effective Dates (start - stop) Status Comments Keppra 500 mg tablet take 1 Tablet by or al route 3 times every day 500 MG - Active Carbatrol 200 mg capsule, extended release take 1 capsule by oral route every 12 hours 200 MG - Active triamcinolone acetonide 0.5 % topical cream apply by topical route 2 times every day a thin layer to the affected area(s) 0.00 - Active Problems Condition Type Effective Dates (start - stop) Clini zheng Status Comments No Known Problems Procedures Procedure Date OFFICE/OUTPATIENT VISIT, [facility] Advance Directives Directive Yes / No Effective Date File Name No Information Encounters Encounter Description Practice Location Reason(s) For Visit Diagnoses Date Provider Providers Copied on Encounter OFFICE/OUTPATI ENT VISIT, [facility], [id number], [id number], [place] tel:[phone] Family Medicine F1 Rash (chief complaint) Dermatitis Aki Stahl. [address], [place], [id number], [place]. tel:[phone] Referring Provider: Maribeth Prabhakar R, [address] [place], [address]. tel:[phone] Family History Family Member Type Diagnosis Age At Onset No Information Payers Payer name Insurance type Covered green party ID Fabiola salinas(s) [employer] [place] [id number] [employer] [place] [employer] [id number] Social History Type Description Quantity Date Captured Comments Alcohol Use Details Unknown Caffeine Use Details Unknown Tobacco Use Status Chews tobacco Smoking Status Heavy tobacco smoker Non-Smoking Tobacco Use Details : No Details Available : No Details Available Sex Male Vital Signs Date / Time: Height Weight BMI Pulse Rate Blood Pressure Temperature Respiratory Rate Body Surface Area Head Circumference Head Circ. Percentile Wt./Satnam. Percentile BMI percentile Pulse Ox Inhaled Ox 7:39 AM 81.00 in 117.299 kg (258.60 lbs) 27.7 1 kg/m eter (2) 66 /min 145/94 mm[Hg] 97.40 F 16 /min 2.59 meter(2) 97 % 21 % 7:41 AM 144/94 mm[Hg] 7:48 AM 120/88 mm[Hg] Chief Complaint And Reason For Visit From encounter dated '04/15/2018 07:00'. Rash (chief complaint). Description: The patient presents for Rash. This episode began 8 years ago.The symptom(s) are described as occurs daily. Affected area(s) include trunk. The patient describesthe affected area(s) as itchy. Associated symptoms include pruritus. Pertinent negatives include bleeding, bleeding skin and painful rash. Additional information: Pt states that he has had rash to that is chronic in nature. Pt uses a steroid cream to help this. Reason For Referral Reason For Referral No Information Plan Of Treatment Date Type Action Status Goal Tobacco cessation counseling completed History Of Present Illness Encounter Date Complaint History Of Prese nt Illness Rash The patient pres ents for Rash. This episode began 8 years ago. The symptom(s) are described as occurs daily. Affected area(s) include trunk. The patient describes the affected area(s) as itchy. Associated symptoms include pruritus. Pertinent negatives include bleeding, bleeding skin and painful rash. Additional information: Pt states that he has had rash to that is chronic in nature. Pt uses a steroid cream to help this. Functional Status Date Functional Assessmen t Pain Score 8/10 Instructions Date Instruction Additional Infor king Chronic rash. Has no t PCP at this time. Will send steroid cream. This is what he usually uses to resolve this. Rx sent. If does not improve RTC. Pt agreed with plan. Related to Dermatitis Assessments Type Assessment Date assessment Dermatitis Mental Status Date Cognitive Assessment Orientation - Mcpherson ed to time, place, person, situation. Patient Care Teams Name Effective Dates (start - stop) Status Members No Information
--- OUTSIDE RECORDS SUMMARY | 2025-01-02 18:16 | XMS_ITS | Data Portability ---
Author Organization [facility], Hany.LLorri, [facility] Address [address] [facility] [address] [place] [address] Care Team Providers Care Ground Instructor Basic Name Role Phone PEPPER CHAPMAN Primary Care Provider Unavailabl e Assessment Encounter Date Assessment Date Assessment LastModified by Organization Details LastModified Time 10/11/2024 10/11/2024 Document scribed by Julius Ontiveros Whip Operator. I was present during interview and exam. I have reviewed and agree with above documentation . Dr. Pepper Chapman. [email or web address] Not available 10/11/2024 15:20:48 10/25/2024 10/25/2024 Document scribed by Julius Ontiveros Whip Operator. I was present during interview and exam. I have reviewed and agree with above documentation . Dr. Pepper Chapman. [email or web address] Not available 10/25/2024 15:19:48 11/08/2024 11/08/2024 Document scribed by Julius Ontiveros Whip Operator. I was present during interview and exam. I have reviewed and agree with above documentation . Dr. Pepper Chapman. [email or web address] Not available 11/08/2024 17:54:49 Plan of Treatment Reminders Order Date Submit Date Provider Last Modified By Organization Details Last Modified Time Details Appointments OFFICE VISIT 20 2024 01:40P Samm Chapman, DO Not available Not available Not available Lab None recorded. Referral None recorded. Procedures None recorded. Surgeries None recorded. Imaging None recorded. Medication Orders tamsulosi n 0.4 mg capsule 2024 025 [facility] [address], [address], [place], [address], 11/29/2024 05:01:33 amoxicill in 875 mg-potass ium clavulana te 125 mg tablet 2024 025 [facility] [address], [address], [place], [address], 11/25/2024 05:00:54 fluconazo le 150 mg tablet 2024 025 [facility] [address], [address], [place], [address], 11/04/2024 05:01:24 nystatin 100,000 unit/gram topical cream 2024 025 [email or web address] [facility] 15, [address] [address] [place] [address], [address], 10/25/2024 16:55:22 betametha sone acetate and sodium phos 6 mg/mL suspensio n for injection 2024 025 Not available 10/25/2024 15:04:47 tizanidin e 2 mg tablet 2024 025 [email or web address] 7 [facility] 15, [address] [address], [address], 10/11/2024 21:32:41 quetiapin e 25 mg tablet 2024 025 [facility] 15, [address], [place], [address], 09/11/2024 17:34:36 Patient TargetsNo targets recorded. Patient InstructionsNo instructions recorded. Reason for Referral None Reported. Results Created Date Observation Date Name Description Value Unit Range Abnormal Flag Note LastModifiedBy Organization Detail LastModifiedTime 09/06/19 25 09/05/2024 CBC WBC 4.9 x10 4.5-10 .5 Not Available [facility] [address] [facility] [address], [place], [address], 09/05/2024 13:32:02 09/06/19 25 09/05/2024 CBC RBC 4.40 x10 4.30-5 .90 Not Available [facility] [address] [facility] [address] [address], [place], [address], 09/05/2024 13:32:02 09/06/19 25 09/05/2024 CBC HGB 13.2 g/dL 13.5-1 8.0 low Not Available [facility] [address] [facility] [address] [address], [place], [address], 09/05/2024 13:32:02 09/06/19 25 09/05/2024 CBC HCT 36.3 % 35.0-6 0.0 Not Available [facility] [address] [facility] [address] [address], [place], [address], 09/05/2024 13:32:02 09/06/19 25 09/05/2024 CBC MCV 82.4 fL 80.0-9 9.9 Not Available [facility] [address] [facility] [address] [address], [place], [address], 09/05/2024 13:32:02 09/06/19 25 09/05/2024 CBC MCH 30.0 pg 27.0-3 2.0 Not Available [facility] [address] [facility] [address] [address], [place], [address], 09/05/2024 13:32:02 09/06/19 25 09/05/2024 CBC MCHC 36.3 g/dL 32.0-3 6.0 high Not Available [facility] [address] [facility] [address] [address], [place], [address], 09/05/2024 13:32:02 09/06/19 25 09/05/2024 CBC RDW 14.6 % 11.5-1 4.5 high Not Available [facility] [address] [facility] [address], [place], [address], 09/05/2024 13:32:02 09/06/19 25 09/05/2024 CBC plt 127.6 x10 150.0- 451.0 low Not Available [facility] [address] [facility] [address], [place], [address], 09/05/2024 13:32:02 09/06/19 25 09/05/2024 CBC lymphocytes % 19.5 % 20.0-5 0.0 low Not Available [facility] [address] [facility] [address], [place], [address], 09/05/2024 13:32:02 09/06/19 25 09/05/2024 CBC granulcytes % 64.9 % 30.0-7 0.0 Not Available [facility] [address] [facility] [address], [place], [address], 09/05/2024 13:32:02 09/06/19 25 09/05/2024 CBC monocytes % 9.6 % 2.0-16 .0 Not Available [facility] [address] [facility] [address], [place], [address], 09/05/2024 13:32:02 09/06/19 25 09/05/2024 CBC granulcytes# 3.2 x10 Not Zuleyka ilable [facility] [address] [facility] [address], [place], [address], 09/05/2024 13:32:02 09/06/19 25 09/05/2024 CBC lymphocytes # 1.0 x10 Not Available [facility] [address] [facility] [address], [place], [address], 09/05/2024 13:32:02 09/06/19 25 09/05/2024 CBC monocytes # 0.5 x10 Not Avai lable [facility] [address] [facility], [place], [address], 09/05/2024 13:32:02 09/06/19 25 09/05/2024 HBA1C hemaglobin A1C 5.1 4.2-6. 5 Not Available [facility] [address] [facility] [address], [place], [address], 09/05/2024 13:38:42 09/06/19 25 09/05/2024 CMP (MALE ) glucose 105.0 mg/dL 60.0-9 9.0 high Not Available [facility] [address] [address], [place], [address], 09/05/2024 14:05:31 09/06/19 25 09/05/2024 CMP (MALE ) BUN (blood urea nitrogen) 20.0 mg/dL 10.0-2 6.0 Not Available [facility] [address] [facility] [address], [place], [address], 09/05/2024 14:05:31 09/06/19 25 09/05/2024 CMP (MALE ) creatinine (serum) 1.1 mg/dL 0.4-1. 5 Not Available [facility] [address] [address], [place], [address], 09/05/2024 14:05:31 09/06/19 25 09/05/2024 CMP (MALE ) BUN/creatini ne ratio 18.18 ratio Not Available [facility] [address] [facility] [address], [place], [address], 09/05/2024 14:05:31 09/06/19 25 09/05/2024 CMP (MALE ) eGFR calculated 70.8 Not Available [facility] [address] [address], [place], [address], 09/05/2024 14:05:31 09/06/1909/05/2024 CMP (MALE ) total protein 8.1 g/dL 6.0-8. 5 Not Available [facility] [address] [facility] [address], [place], [address], 09/05/2024 14:05:31 09/06/19 25 09/05/2024 CMP (MALE ) total bilirubin 0.4 mg/dL 0.2-1. 3 Not Available [facility] [address] [facility] [address], [place], [address], 09/05/2024 14:05:31 09/06/1909/05/2024 CMP (MALE ) albumin 4.3 g/dL 3.5-5. 5 Not Available [facility] [address] [facility] [address] [facility] [address], [place], [address], 09/05/2024 14:05:31 09/06/1909/05/2024 CMP (MALE ) globulin 3.8 calc Not Available [facility] [address] [facility], [place], [address], 09/05/2024 14:05:31 09/06/19 25 09/05/2024 CMP (MALE ) AST (SGOT) 25.0 U/L 0.0-46 .0 Not Available [facility] [address] [facility] [address] [address], [place], [address], 09/05/2024 14:05:31 09/06/19 25 09/05/2024 CMP (MALE ) altv (SGPT) 18.0 U/L 13.0-6 9.0 normal Not Available [facility] [address] [facility] [address] [address], [place], [address], 09/05/2024 14:05:31 09/06/1919 0909/05/2024 CMP (MALE ) A/G ratio 1.1 ratio Not Available [facility] [address] [facility] [address], [place], [address], 09/05/2024 14:05:31 09/06/19 25 09/05/2024 CMP (MALE ) ALP phos 77.0 U/L 30.0-1 40.0 normal Not Available [facility] [address] [facility] [address], [place], [address], 09/05/2024 14:05:31 09/06/1909/05/2024 CMP (MALE ) calcium 8.5 mg/dL 8.4-10 .5 Not Available [facility] [address] [facility] [address], [place], [address], 09/05/2024 14:05:31 09/06/19 25 09/05/2024 CMP (MALE ) sodium 140.0 mmol/ L 136.0- 145.0 Not Available [facility] [address] [facility], [place], [address], 09/05/2024 14:05:31 09/06/19 25 09/05/2024 CMP (MALE ) potassium 3.9 mmol/ L 3.5-5. 1 Not Available [facility] [address] [facility] [address], [place], [address], 09/05/2024 14:05:31 09/06/19 25 09/05/2024 CMP (MALE ) chloride 105.0 mmol/ L 98.0-1 10.0 normal Not Available [facility] [address] [facility] [address], [place], [address], 09/05/2024 14:05:31 09/06/19 25 09/05/2024 CMP (MALE ) C02 27.0 mmol/ L 22.0-3 1.0 Not Available [facility] [address] [facility] [address], [place], [address], 09/05/2024 14:05:31 09/06/19 25 09/05/2024 CMP (MALE ) anion gap 8.0 calc Not Available [facility] [address] [facility] [address], [place], [address], 09/05/2024 14:05:31 09/06/19 25 09/05/2024 CMP (MALE ) osmolality 291.9 calc Not Available [facility] [address] [facility] [address], [place], [address], 09/05/2024 14:05:31 09/06/19 25 09/05/2024 LIPID PROFI LE (MALE ) cholesterol 204.0 mg/dL 0.0-20 0.0 high Not Available [facility] [address] [facility], [place], [address], 09/05/2024 14:05:34 09/06/19 25 09/05/2024 LIPID PROFI LE (MALE ) trig 139.0 mg/dL 0.0-15 0.0 Not Available [facility] [address] [facility], [place], [address], 09/05/2024 14:05:34 09/06/19 25 09/05/2024 LIPID PROFI LE (MALE ) HDL - direct 49.0 mg/dL >40.0 Not Available [facility] [address] [facility] [address], [place], [address], 09/05/2024 14:05:34 09/06/19 25 09/05/2024 LIPID PROFI LE (MALE ) VLDL - direct 27.8 mg/dL Not Available [facility] [address] [facility] [address], [place], [address], 09/05/2024 14:05:34 09/06/19 25 09/05/2024 LIPID PROFI MAURICIO (MALE ) LDL - direct 127.2 mg/dL 0.0-13 0.0 Not Available [facility] [address], [place], [address], 09/05/2024 14:05:34 11/09/19 25 11/08/2024 URINA LYSIS WITH MICRO color COLORL ESS abnormal Not Available [facility] [address], [place], [address], 11/08/2024 17:07:41 11/09/19 25 11/08/2024 URINA LYSIS WITH MICRO clarity TURBID abnormal Not Available [facility] [address], [place], [address], 11/08/2024 17:07:41 11/09/19 25 11/08/2024 URINA LYSIS WITH MICRO glu NEGATI VE Not Available [facility] [address], [place], [address], 11/08/2024 17:07:41 11/09/19 25 11/08/2024 URINA LYSIS WITH MICRO bili NEGATI VE Not Available [facility] [address], [place], [address], 11/08/2024 17:07:41 11/09/19 25 11/08/2024 URINA LYSIS WITH MICRO ket NEGATI VE Not Available [facility] [address], [place], [address], 11/08/2024 17:07:41 11/09/19 25 11/08/2024 URINA LYSIS WITH MICRO S.g 1.025 Not Available [facility] [address], [place], [address], 11/08/2024 17:07:41 11/09/19 25 11/08/2024 URINA LYSIS WITH MICRO pH 5.5 Not Available [facility] [address], [place], [address], 11/08/2024 17:07:41 11/09/19 25 11/08/2024 URINA LYSIS WITH MICRO pro 1+ abnormal Not Available [facility] [address] [facility] [address], [place], [address], 11/08/2024 17:07:41 11/09/19 25 11/08/2024 URINA LYSIS WITH MICRO uro 0.2 E.U./D L Not Available [facility] [address], [place], [address], 11/08/2024 17:07:41 11/09/19 25 11/08/2024 URINA LYSIS WITH MICRO nit NEGATI VE Not Available [facility] [address] [facility] [address], [place], [address], 11/08/2024 17:07:41 11/09/19 25 11/08/2024 URINA LYSIS WITH MICRO blo NEGATI VE Not Available [facility] [address] [facility] [address], [place], [address], 11/08/2024 17:07:41 11/09/19 25 11/08/2024 URINA LYSIS WITH MICRO ana 1+ abnormal Not Available [facility] [address] [facility] [address], [place], [address], 11/08/2024 17:07:41 11/09/19 25 11/08/2024 URINA LYSIS WITH MICRO WBC 15-20 abnormal Not Available [facility] [address], [place], [address], 11/08/2024 17:07:41 11/09/19 25 11/08/2024 URINA LYSIS WITH MICRO RBC NEGATI VE Not Available [facility] [address] [facility] [address], [place], [address], 11/08/2024 17:07:41 11/09/19 25 11/08/2024 URINA LYSIS WITH MICRO epi cells NEGATI VE Not Available [facility] [address] [facility] [address], [place], [address], 11/08/2024 17:07:41 11/09/19 25 11/08/2024 URINA LYSIS WITH MICRO bacteria 4++++ AMORPH OUS PACKED abnormal Not Available [facility] [address] [facility] [address], [place], [address], 11/08/2024 17:07:41 11/09/19 25 11/08/2024 URINA LYSIS WITH MICRO other SO MUCH AMORPH OUS IT WAS HARD TO SEE ANYTHI NG ELSE abnormal Not Available [facility] [address] [facility] [address], [place], [address], 11/08/2024 17:07:41 11/09/19 25 11/10/2024 CULTU RE, URINE , ROUTI NE culture, urine, routine SEE NOTE abnormal CULTU RE, URINE , ROUTI NE Micro Numbe r: [id number] Test Statu s: Final Speci men Sourc e: Urine Speci men Quali ty: Adequ ate Resul t: 50,00 0-100 ,000 CFU/m L of Group B Strep tococ cus isola bernardo Beta- hemol ytic strep tococ ci are predi ctabl y susce ptibl e to Penic illin and other beta- lacta ms. Susce ptibi lity testi ng not routi dominga perfo rmed. Pleas e conta ct the labor atory withi n 3 days if susce ptibi lity testi ng is megan ed. Not Available [facility] [address], [place], [address], 11/10/2024 03:48:11 Result Notes None recorded. Problems Name Problem SNOMED Code Status Onset Date Resolution Date Notes Provider Name and Address Organization Details Recorded Time Pruritic rash 51207726 Active 2022 Kayce davis [facility], MelissaLKellieCKellie 5 15:04:17 Headache 46623907 Active 2023 Kayce Reyn[facility], MelissaLKellieCKellie 5 15:04:16 Leukopenia 03191946 Active 2023 Kayce Reynoso [facility], MelissaLKellieCKellie 5 15:04:17 Acquired thrombocyto penia 66509001 Active 2023 Kayce Reynoso [facility], MelissaLLorri 5 15:04:17 Pain of left hip joint 5691540406811 00 Active 2023 Kayce Reynoso [facility], LKellieL.CKellie 5 15:04:17 Hypertensiv e heart disease with congestive heart failure 9254708 Active 2023 Kayce Reynoso [facility], MelissaLKellieCKellie 5 15:04:17 Cellulitis of left lower limb 9423182584138 9109 Active 2023 Kayce Reynoso [facility], LKellieLKellieCKellie 5 15:04:16 Contact dermatitis caused by urushiol from [facility] nasima 325391568 Active 2023 Kayce Reynoso [facility], MelissaLKellieCKellie 5 15:04:16 Urticaria 895533091 Active 2023 Kayce Reynoso [facility], MelissaLKellieCKellie 5 15:04:16 Skin lesion 35145511 Active 2023 Kayce Reynoso [facility] 5 15:04:17 Difficulty sleeping 236907585 Active 2024 Kayce Reynoso [facility] 5 15:04:16 Severe recurrent major depression without psychotic features 14796520 Active 2024 Kayceron [facility], LKellieL.CKellie 5 15:04:17 Erectile dysfunction 951291054 Active 2022 Kayce Reynoso [facility] 5 15:04:17 Pruritic disorder 523451110 Active 2022 Kayceron Reynoso [facility] 5 15:04:16 Seizure disorder 757276325 Active 2022 [facility], L.L.CKellie 5 15:04:16 Problem Notes None recorded. Medical Equipment None Reported. Allergies Allergen ID Allergen Name Allergen Category Reaction Reaction Severity Criticality Documentation Date Start Date Code Code System Note Provider Name and Address Organization Details Recorded Time 82129 No known allergy (situatio n) Not available Not available Not available Not available 02/12/2024 53375 6003 SNOMED Julius Ontiveros [facility], LKellieL.CKellie 5 17:58:42 No known drug allergies Medications Name Sig Start Date Stop Date Status Note LastModified by Organization Details LastModified Time quetiapin e 25 mg tablet TAKE 1 TABLET BY MOUTH ONCE DAILY AT BEDTIME active Not Available Not Available No t Available doxycycli ne hyclate 100 mg capsule Take 1 capsule twice a day by oral route for 10 days. 03/02 completed Not Available Not Available Not Available tizanidin e 2 mg tablet TAKE 1 TABLET BY MOUTH EVERY 6 HOURS NEEDED FOR MUSCLE PAIN/SPA SM active Not Available Not Available No t Available trazodone 50 mg tablet Take 1 tablet every day by oral route at bedtime for 30 days. 03/02 completed Not Available Not Available Not Available triamcino lone acetonide 0.5 % topical cream APPLY A THIN LAYER OF CREAM TOPICALL Y TO AFFECTED AREA TWICE DAILY 02/20 completed Not Available Not Available Not Available ibuprofen 800 mg tablet TAKE 1 TABLET BY MOUTH THREE TIMES DAILY NEEDED active Not Available Not Available No t Available fluconazo le 150 mg tablet Take 1 tablet every day by oral route for 3 days. 11/04 completed Not Available Not Available Not Available benzonata te 200 mg capsule TAKE 1 CAPSULE BY MOUTH THREE TIMES DAILY 04/18 completed Not Available Not Available Not Available levetirac etam 500 mg tablet Take 1 tablet(s ) 3 times a day by oral route for 90 days. 2024 active Not Available Not Available Not Avai lable sumatript an 100 mg tablet Take 1 tablet every day by oral route as needed. active Not Available Not Available No t Available hydrocodo ne 5 mg-acetam inophen 325 mg tablet TAKE 1 TABLET BY MOUTH EVERY 4 HOURS NEEDED FOR MODERATE PAIN 03/02 completed Not Available Not Available Not Available prednison e 20 mg tablet Take 1 tablet every day by oral route in the morning for 7 days. 03/02 completed Not Available Not Available Not Available thiamine HCl (vitamin B1) 100 mg tablet daily active Not Available Not Available No t Available carbamaze pine ER 200 mg capsule,e xtended release 12 hr Take 2 capsules twice a day by oral route. 02/20 completed Not Available Not Available Not Available chlorthal idone 25 mg tablet TAKE 1 TABLET BY MOUTH ONCE DAILY IN THE MORNING active Not Available Not Available No t Available sulfameth oxazole 800 mg-trimet hoprim 160 mg tablet TAKE 1 TABLET BY MOUTH TWICE DAILY FOR 7 DAYS 02/07 completed Not Available Not Available Not Available triamcino lone acetonide 0.1 % topical cream APPLY CREAM EXTERNAL LY TO RED/IRRI TATED AREAS TWICE DAILY NEEDED. NO MORE THAN 2 WEEKS/MO NTH. NOT FOR USE ON FACE, GROIN, OR SKIN FOLDS active Not Available Not Available No t Available betametha sone acetate and sodium phos 6 mg/mL suspensio n for injection Take 1 mL by injectio n route. 10/25 completed Not Available Not Available Not Available metoclopr amide 5 mg tablet TAKE 1 TABLET BY MOUTH TWICE DAILY NEEDED FOR NAUSEA AND VOMITING 01/06 completed Not Available Not Available Not Available tamsulosi n 0.4 mg capsule Take 1 capsule twice a day by oral route for 14 days. 11/29 completed Not Available Not Available Not Available carbamaze pine ER 200 mg tablet,ex tended release,1 2 hr TAKE 2 TABLETS BY MOUTH TWICE DAILY FOR 90 DAYS 09/14 completed Not Available Not Available Not Available pantopraz ole 40 mg tablet,de layed release 03/02 completed Not Available Not Available Not Available triamcino lone acetonide 0.1 % topical ointment APPLY TWICE DAILY TO ITCHY AREAS ON BACK, LEGS AND ARMS NEEDED. NOT FOR USE ON FACE, GROIN OR SKIN FOLDS. NO MORE THAN 2 WEEKS PER MONTH active Not Available Not Available No t Available nystatin 100,000 unit/gram topical cream APPLY TOPICALL Y TO AFFECTED AREAS THREE TIMES DAILY active Not Available Not Available No t Available Triamcino lone Acetonide (Top) 0.5 % topical cream as needed 03/02 completed DM/ky; Recorded 08/05/19 23 11:49AM by Pepper Chapman DO, Office Visit; Refill Quantity : 30; Gram; Not Available Not Available Not Available hydroxyzi ne HCl 25 mg tablet TAKE 1 TABLET BY MOUTH THREE TIMES DAILY NEEDED FOR ITCHING active Not Available Not Available No t Available mupirocin 2 % topical ointment APPLY TOPICALL Y TO OPEN/SCA BBED AREA OF LEFT LOWER LEG TWICE DAILY UNTIL HEALED active Not Available Not Available No t Available furosemid e 20 mg tablet TAKE 1 TABLET BY MOUTH ONCE DAILY IN THE MORNING active Not Available Not Available No t Available oxycodone -acetamin ophen 7.5 mg-325 mg tablet 03/02 completed Not Available Not Available Not Available levofloxa willian 750 mg tablet TAKE 1 TABLET BY MOUTH ONCE DAILY FOR 10 DAYS 04/18 completed Not Available Not Available Not Available methylpre dnisolone 4 mg tablets in a dose pack TAKE BY MOUTH DIRECTED ON INSIDE OF PACKAGE 01/30 completed Not Available Not Available Not Available albuterol sulfate HFA 90 mcg/actua tion aerosol inhaler INHALE 2 PUFFS BY MOUTH EVERY 4 HOURS NEEDED FOR SHORTNES S OF BREATH AND FOR COUGH AND FOR WHEEZING active Not Available Not Available No t Available celecoxib 100 mg capsule TAKE 1 CAPSULE BY MOUTH TWICE DAILY active Not Available Not Available No t Available ondansetr on 4 mg disintegr ating tablet 03/02 completed Not Available Not Available Not Available doxycycli ne hyclate 100 mg tablet TAKE 1 TABLET BY MOUTH TWICE DAILY FOR 10 DAYS 02/20 completed Not Available Not Available Not Available amoxicill in 875 mg-potass ium clavulana te 125 mg tablet Take 1 tablet twice a day by oral route for 10 days. 11/25 completed Not Available Not Available Not Available Allergy Relief (loratadi ne) 10 mg tablet Take 1 tablet by mouth once daily for 90 days 2023 active Not Available Not Available Not Avai lable carbamaze pine ER 200 mg capsule,e xtended release [id number] r TAKE 2 CAPSULES BY MOUTH TWICE DAILY active Not Available Not Available No t Available sildenafi l (pulmonar y hypertens ion) 20 mg tablet TAKE 1 TO 2 TABLETS BY MOUTH DAILY NEEDED 1 TO 4 HOURS PRIOR TO USE active Not Available Not Available No t Available Carbatrol two times daily 03/02 completed 86577; Recorded 07/21/19 1:23PM by Julius Ontiveros (Authori breanne through Pepper Chapman DO), Office Visit; Not Available Not Available Not Available Percocet up to every 4 hrs as needed for severe pain 03/02 completed Recorded 08/05/19 11:48AM by Pepper Chapman DO, Office Visit; Refill Quantity : 0; Not Available Not Available Not Available sildenafi l as needed 03/02 completed Recorded 07/21/19 12:59PM by Bonnie Kumar, Office Visit; Refill Quantity : 12; Tablet; Not Available Not Available Not Available levetirac etam two times daily 03/02 completed Recorded 07/21/19 1:23PM by Julius Ontiveros, Office Visit; Refill Quantity : 180; Tablet; Not Available Not Available Not Available levetirac etam 1,000 mg tablet TAKE 1 TABLET BY MOUTH TWICE DAILY FOR 90 DAYS 03/02 completed Not Available Not Available Not Available Vitals Date Recorded Body height Body mass index (BMI) Body weight Oxygen saturation Oxygen saturation in Arterial blood by Pulse oximetry Heart rate Respiratory rate Systolic And Diastolic Provider Name and Address Organization Details Last Updated DateTime 5 205.74 cm 29.2 kg/m2 733885. 52 g 97 % 97 % 77 /min 18 /min 110/88 mm[Hg] [facility] 5 17:26:14 Date Recorded Body height Body mass index (BMI) Body weight Oxygen saturation Oxygen saturation in Arterial blood by Pulse oximetry Heart rate Respiratory rate Systolic And Diastolic Provider Name and Address Organization Details Last Updated DateTime 5 205.74 cm 29.1 kg/m2 822214. 93 g 97 % 97 % 84 /min 18 /min 120/76 mm[Hg] [facility] 5 15:06:41 Date Recorded Body height Body mass index (BMI) Body weight Respiratory rate Oxygen saturation Oxygen saturation in Arterial blood by Pulse oximetry Heart rate Systolic And Diastolic Provider Name and Address Organization Details Last Updated DateTime 5 205.74 cm 28.9 kg/m2 002277. 94 g 18 /min 95 % 95 % 89 /min 110/70 mm[Hg] [facility] 5 15:03:50 Date Recorded Body height Provider Name an d Address Organization Details Last Updated DateTime 11/07/2024 205.74 cm [facility], L.L.CKellie 11/07/2024 16:56:21 Date Recorded Body height Body mass index (BMI) Body weight Oxygen saturation Oxygen saturation in Arterial blood by Pulse oximetry Heart rate Respiratory rate Body temperature Systolic And Diastolic Provider Name and Address Organization Details Last Updated DateTime 5 205.74 cm 28.9 kg/m2 188202. 64 g 92 % 92 % 97 /min 148 /min 97.9 [degF] 110/60 mm[Hg] Kayce Reynoso [facility], L.LKellieCKellie 5 17:45:33 Social History None recorded. Functional Status Question Answer Note LastModified by Organizat ion Details LastModified Time Do you use any illicit or recreational drugs? No [email or web address] Information not available 10/06/2022 Do you or have you ever used any other forms of tobacco or nicotine? Yes [email or web address] Information not available 10/06/2022 What is your level of alcohol consumption? None [email or web address] Information not available 10/06/2022 Do you or have you ever used smokeless tobacco? Currently chews tobacco [email or web address] Information not available 10/06/2022 Mental Status None recorded. Family History Nothing Reported. Medical History No medical history recorded. Immunizations Vaccine Type Date Status Note Provider Nam e and Address Organization Details Recorded Time Influenza, MDCK, quadrivalent, preservative 9 completed Elly davis [facility], L.L.CKellie 01/18/2024 09:27:06 COVID-19, mRNA, LNP-S, PF, 30 mcg/0.3 mL dose 1 completed Elly davis [facility], L.LKellieCKellie 01/18/2024 09:27:06 Td (adult), 2 Lf tetanus toxoid, preservative free, adsorbed 9 completed Elly davis [facility], L.LKellieCKellie 01/18/2024 09:27:06 Influenza, split virus, quadrivalent, PF 0 completed Elly davis [facility] 01/18/2024 09:27:06 Influenza, split virus, quadrivalent, PF 7 completed Elly davis [facility], L.L[facility] 01/18/2024 09:27:06 Past Encounters Encounter ID Performer Location Encounter Start Date Encounter Closed Date Diagnosis/Indication Diagnosis SNOMED-CT Code Diagnosis ICD10 Code Diagnosis Note [id number] Pepper Chapman DO [facility] ([facility]) [address] [place] [address] [phone] 5 10/06/2022 11:57:21 10/13/2022 10:24:40 Seizure disorder 234918418 G40.909 concern for keprra cause lethergy and pruritis. will decrease kepppra to prior dose that kept him seizure free for several years. f/u 3 wks. sooner with problems. Pruritic disorder 113616 002 L29.9 concern for 2/2 keppra, will decrease dose. start claritin daily. Return to office with no improvemen t or any problems. Go to ER with severe worsening or severe problems. Erectile dysfunction 860 193755 F52.21 ok to take 2 of the sildenafil 20mg tabs. Return to office with no improvemen t or any problems. Go to ER with severe worsening or severe problems. [id number] [facility]) [address] [place] [address] [phone] 5 10/26/2022 14:00:42 10/26/2022 20:19:29 Seizure disorder 087583589 G40.909 continue keppra 500mg tid. counseled Pruritic disorder 763476 002 L29.9 concern for 2/2 keppra, i,proved. continue with lower dose of keppra and continue claritin Erectile dysfunction 860 887073 F52.21 continue sildenafil 20mg tabs. [id number] Pepper Chapman DO [facility] ([facility]) [address] [place] [address] [phone] 5 01/06/2023 11:43:53 01/06/2023 13:01:40 Cough 42789743 R05.9 Acute bronchitis 1723570 2 J20.9 Progressin g. We will start. Return with worse Pruritic rash 82406770 L 28.2 Recurrent. [id number] Pepper Chapman DO [facility] ([facility]) [address] [place] [address] [phone] 5 02/01/2023 12:19:56 02/01/2023 20:18:12 Chronic gastritis 2688102 K29.50 acute flair last week. ER workup negative for appendicit is and cardiac issues.con tinue pantoprazo le. [id number] Pepper Chapman DO [facility] ([facility]) [address] [place] [address] 03/02/2023 13:45:32 03/02/2023 18:40:54 Seizure disorder 077414435 G40.909 no recent seizures, continue keppra 500mg tid and carbamazep ine bid. counseled. labs to monitor renal and liver fxn. Pruritic disorder 134483 002 L29.9 improved, continue claritin [id number] Pepper Chapman DO [facility] ([facility]) [address] [place] [address] 07/29/2023 11:01:46 08/02/2023 12:11:49 Seizure disorder 701524863 G40.909 stable. no recent recurrence . continue keppra and carbamazep ine. repeat liver and kidney labs. Headache 84741709 R51.9 increase fluids, decrease Dr. Figueroa/oth er soda.incre ase activity.w ill start prn imitrex if excedrin does not help. Acquired thrombocytopenia 21664013 D69.6 Mild, per Leukopenia 20612441 D72. 819 Mild. Per recent labs. Repeat labs today. Pain of le ft hip joint 8220457176 49888 M25.552 Concern for primary degenerati ve osteoarthr itis of the left hip. Will get x-ray. Patient to use Tylenol, counseled on activity. Phone follow-up. [id number] Pepper Chapman DO [facility] ([facility]) [address] [place] [address] 01/31/2024 16:57:16 01/31/2024 18:05:53 Pruritic rash 04457302 L28.2 Recurrent. use topical steroids prn. Seizure disorder 4810775 02 G40.909 stable. no recent recurrence . continue keppra and carbamazep ine. repeat liver and kidney labs.keep f/u with neurology Dr. zarate. Hypertensi ve heart disease with congestive heart failure 2889413 I11.0 will get US due to chronic, worsening edema. counseled Cellulitis of left lower limb 1644690442 7754487 L03.116 I reviewed ER records prior to seeing the patient today. Please see hpi above and chart for detailed records. finish abx. need to work on improving leg swelling. will get echo. counseled on elevation and wraps.Retu rn to office with no improvemen t or any problems. Go to ER with severe worsening or severe problems. [id number] Pepper Chapman DO [facility] ([facility]) [address] [place] [phone] 5 02/08/2024 11:42:38 02/08/2024 12:49:13 Cellulitis 386035693 L03.90 LLE. Counseled will change abx, not completely resolved with Bactrim. Cough 79117880 R05.9 Counseled CXR today. [id number] Pepper Chapamn DO [facility] ([facility]) [address] [place] [address] [phone] 5 02/21/2024 09:52:20 02/21/2024 10:51:52 Cellulitis 300543972 L03.90 LLE worse, now with purulent drainge anterior ankle with open wound. cleaned and dressed today. will repeat infection markers. will start levaquin. f/u 2 days for re-eval. go to ER with worsening. [id number] Pepper Chapman DO [facility] ([facility]) [address] [place] [address] [phone] 5 02/23/2024 16:04:47 02/29/2024 14:16:23 Cellulitis 943884736 L03.90 02/23/24- unchanged with Levaquin at this time. Counseled I am concerned he may need IV abx, I advise he go to ER for Sepsis w/u. [id number] Pepper Chapman DO [facility] ([facility]) [address] [place] [address] [phone] 5 03/07/2024 15:12:44 03/07/2024 16:39:10 Cellulitis of left lower limb 5814956578 9660246 L03.116 Improved. Hypertensi ve heart disease with congestive heart failure 8203206 I11.0 03/07/24- Reviewed and discussed Echo from 02/29/24. Consider Cardiology referral if worsening, prefers Dr. Mirza. Seizure disorder 6572613 02 G40.909 stable. no recent recurrence . continue keppra and carbamazep ine.keep f/u with neurology Dr. zarate. Muscle weakness 24251643 M62.81 R26.89 03/07/24-PT at [facility] for balance and strengthen ing. [id number] JAY JAY CR [facility] ([facility]) [address] [place] [address] [phone] 5 03/17/2024 08:35:09 03/17/2024 14:05:37 Contact dermatitis caused by urushiol from Eastern poison nasima 369969086 L25.5 I counseled pt on dx of contact dermatitis , likely poison nasima. pt to take a zyrtec/cla ritin every morning then benadryl at night. OTC topicals such as Nasima Rest, Calamine, steroid creams, etc may be used for the itching. Return to office with no improvemen t or any problems. [id number] Pepper Chapman DO [facility] ([facility]) [address] [place] [address] [phone] 5 04/18/2024 15:26:13 04/20/2024 13:36:27 Skin lesion 70406096 L98.9 verrucoid lesion right occiput. will send to dermatolog y for eval and possible removal. Urticaria 451320929 L50. 9 not improved with vistaril, present for more than 1 year. will send to dermatolog y Cellulitis of left lower limb 2633603646 7021362 L03.116 currently resolved. no need for further abx at this time. pt to monitor. exercise, [id number] Pepper Chapman DO [facility] ([facility]) [address] [place] [address] [phone] 5 07/26/2024 14:06:24 07/29/2024 06:37:20 Seizure disorder 865590598 G40.909 stable. no recent recurrence . continue keppra and carbamazep ine, I will refill when needed. Difficulty sleeping 3013 87719 Z72.820 Counseled decrease caffeine intake, to limit the amount of Dr. Figueroa he is drinking, expect sleep to improve. Hypertensi ve heart disease with congestive heart failure 1296455 I11.0 I50.9 03/07/24- Reviewed and discussed Echo from 02/29/24. Consider Cardiology referral if worsening, prefers Dr. Miraz. Depressive disorder 3548 9007 F33.1 stable. [id number] Pepper Chapman DO [facility] ([facility]) [address] [place] [address] [phone] 5 09/05/2024 13:12:26 09/06/2024 10:24:14 Hypertensive heart disease with congestive heart failure 1409969 I11.0 I50.9 03/07/24- Reviewed and discussed Echo from 02/29/24. Consider Cardiology referral if worsening, prefers Dr. Mirza. Diabetes m ellitus screening 546474903 Z13.[id number] [facility]) [address] [place] [address] [phone] 5 09/11/2024 16:11:15 10/11/2024 17:12:17 Severe recurrent major depression without psychotic features 34615801 F33.2 with some insomnia, partially situationa l. will start low dose seroquel. f/u 1 mt. Return to office with no improvemen t or any problems. Go to ER with severe worsening or severe problems. Difficulty sleeping 3013 42793 Z72.820 Counseled decrease caffeine intake, to limit the amount of Dr. Figueroa he is drinking, expect sleep to improve.Wi ll start seroquel at [facility] sleep aids not helping and he is depressed as above. [id number] Pepper Chapman DO [facility] ([facility]) [address] [place] [address] [phone] 5 10/11/2024 14:55:21 11/02/2024 11:02:59 Acute thoracic back pain 849779926 M54.6 Steroid injection, Tizanidine , Counseled on diagnosis, treatment options including medication s and possible side effects. [id number] Pepper Chapman DO [facility] ([facility]) [address] [place] [address] [phone] 5 10/25/2024 14:51:26 10/30/2024 12:51:26 Candidiasis 54103228 B37.9 10/25/24: b/l groin, counseled Nystatin cream, Fluconazol e. Counseled on diagnosis, treatment options including medication s and possible side effects. [id number] Pepper Chapman DO [facility] ([facility]) [address] [place] [phone] 5 11/08/2024 16:43:23 11/13/2024 10:58:10 Dysuria 90327081 R30.0 11/08/24: Reviewed and discussed UA results. Concerned for stone. Will start Tamsulosin BID for 14 days, Augmentin BID for 10 days. Health Concerns Section Related Observation LastModified by Organization Detai ls LastModified Time None Recorded Concern Status LastModified by Organization Details LastModified Time None Recorded Advance Directives Directive None Recorded Payers Insurance Date Sequence Insurance Name Policy Number Policy Cheema Covered Member ID Cheema Member ID Guarantor Name 01/02/2025 [place] [facility] ([facility]IT[facility] L) Jose L Hammers [id number] Jose L Hammandrés 01/02/2025 1 [facility] (MEDICARE REPLACEMENT/A DVANTAGE - PPO) [id number] Jose L Hammers [id number] Jose L Hammers 01/02/2025 2 [place] Jose L Hammers [id number] Jose L Hammers 03/13/2024 3 [employer] Jose L Hammers [id number] Jose L Hammers 03/13/2024 3 [employer] Jose L Hammers [id number] Jose L Hammers Notes Date Note Type Note Provider Name and Address Organization Details Recorded Time 09/11/2024 text/html Pt presents for ER f/u but left before being seen He had abd pain and thought it was his appendix. He states the pain was sharp and so intense that it put him on his knees States that he had labs and testing and they waited for cpl hours and was not in a room still so he left before seen by provider They have concerns if his blood sugar or vitamin levels are off d/t being shakey and not feeling well. Has fatigue that is keeping him from getting any work accomplished Labs done here on 09/05/24 glucose 105, A1c 5.1Cholesterol He is having difficulty sleeping, some nights he is up and down other nights he does not sleep at all. He does not have any consistent hours of sleep each nighthe thinks that he is having some depression sx and is thinking a med may help. 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 10/11/2024 15:27:57 10/11/2024 text/html Pt presents for back pain that started yesterday after mowing. Denies any specific fall or injury, admits he hit several holes when mowing yesterday. He felt like his back twisted when he was mowing.Pain present in the upper back radiating to the right shoulder. He rates the pain at 7/10, worse with movement. Pepper Chapman DO [address] [place] [address], [phone], [facility], [place]. 10/31/2024 23:25:59 10/25/2024 text/html Pt presents for rash that has been present since his last visit here in clinic, on 10/11/24. The rash is in his groin/genital area. It itches and frye. He has been using a diaper rash cream and Triamcinolone cream and it has not resolved yethe is wanting a pill to resolve thishe feels it is the same rash as he has previously had Pepper Chapman [address] [place] [address], [phone], [facility], LKellieLKellieC. 10/30/2024 09:35:10 11/08/2024 text/html Pt presents for urinary discomfortHe states he has painful urination that started 2 days agoHaving increased urinary frequency and hesitation. He reports hard to stop his urine stream occasionally.Denies hematuria.Denies flank pain. He denies fever, chills, or sweats. Pt concerned for kidney stone, has h/o kidney stone several years ago.He admits he drinks a lot of Dr. Pepper, would like to find a way to quit it if he could.He continues chewing tobacco. Pepper Chapman, [address], [phone], [facility], [place] 11/13/2024 08:29:51
--- OUTSIDE RECORDS SUMMARY | 2025-01-02 18:16 | XMS_ITS | Clinical Summary ---
Author Organization Float: [facility] Address [address] [facility] Attn: Epic Prelude ADT MIKEY BORRERO [address] Care Team Providers Care Display Maker Name Role Phone Carolyn Ann MD Primary Care Provider Unavail able Allergies No known active allergies Medications aspirin-acetami nophen-caffeine (EXCEDRIN EXTRA STRENGTH) 250-250-65 mg Tablet 2 tab, By mouth, Q6H, for headache, # 50 tab, Refill(s) 0 2020 Active triamcinolone acetonide (KENALOG) 0.5 % Cream 02/17/2021 Active ibuprofen (MOTRIN) 800 mg tablet Take 1 Tablet (800 mg) by mouth every 12 hours as needed for Pain, Mild. Take with food 20 Tablet 05/15/2021 Active triamcinolone acetonide (KENALOG) 0.5 % Ointment Apply to affected area 2 times daily. 11/24/2017 Active guaiFENesin (MUCINEX) 600 mg Extended Release Biphasic tablet Take 1 Tablet (600 mg) by mouth every 12 hours. 30 Tablet 0 11/28/2017 Active levETIRAcetam (KEPPRA) 500 mg tabletIndicatio ns:Seizures (CMS/HCC) TAKE 1 TABLET BY MOUTH THREE TIMES DAILY 90 Tablet 11 03/30/2022 Active carBAMazepine (CARBATROL) 200 mg Extended Release 12 hour capsuleIndicati ons:Seizures (CMS/HCC) Take 2 Capsules (400 mg) by mouth 2 times daily. 360 Capsule 11 06/24/2022 Active ibuprofen (MOTRIN) 200 mg tablet Take 600 mg by mouth every 6 hours as needed for Pain, Mild. 07/12/2015 Active Active Problems Problem Noted Date Diagnosed Date Brugada syndrome 11/24/2017 CAP (community acquired pneumonia) 11/24/2017 Epilepsy 07/12/2015 Overview (10/24/2020): 1970's. GTCs. Rx LEV, CBZ. Good adherence. Last seizure 07/12/2015 with acute bronchitis. Before that, last seizure ~2013. F/up [facility]/Neurology. Acute bronchitis 07/12/2015 Chewing tobacco dependence 07/11/2015 URI (upper respiratory infection) 08/17/2013 Seizures 02/04/2012 Insomnia 02/04/2012 Special screening for malignant neoplasms, colon 05/03/2009 Immunizations Immunization Administration Dates Next Due ([facility]7 YRS UP) TETANUS AND DIPHTHERIA TOXOIDS, ADSORBED (5 LF OF TETANUS TOXOID AND 2 LF OF DIPHTHERIA TOXOID), 0.5ML (PF), IM 09/29/2008 Family History Medical History Relation Name Comments Arthritis-rheumatoid Father Hypertension Father Arthritis-rheumatoid Mother Heart Disease Mother Heart Failure Mother Hypertension Mother Diabetes Sister 1 Hypertension Sister 2 Arthritis-rheumatoid Sister 3 Colon Cancer Neg Hx Relation Name Status Comments Father Mother Alive Sister 1 Sister 2 Sister 3 Social History Tobacco Use Types Packs/Day Years Used Date Smoking Tobacco: Never Smokeless Tobacco: Current Tobacco Cessation:Ready to Q uit: Not Asked; Counseling Given: Not Answered Alcohol Use Standard Drinks/Week Comments No 0 (1 standard drink = 0.6 oz pur e alcohol) Sex and Gender Information Value Date Recorded Sex Assigned at Not on file Legal Sex Male 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 Gender Identity Not on file Sexual Orientation Not on file Last Filed Vital Signs Vital Sign Reading Time Taken Comments Blood Pressure 126/84 05/05/2022 10:32 AM SCADA OPERATOR Pulse 68 05/05/2022 10:32 AM SCADA OPERATOR Temperature 36.6 C (97.9 F) 10/18/2018 12:12 PM CDT Respiratory Rate 16 10/18/2018 12:1 2 PM CDT Oxygen Saturation 97% 05/05/2022 10: 32 AM SCADA OPERATOR Inhaled Oxygen Concentration - - Weight 119.1 kg (262 lb 9.6 oz) 022 10:32 AM SCADA OPERATOR Height 200.7 cm (6' 7 ) 05/05/2022 10:3 2 AM SCADA OPERATOR Body Mass Index 29.58 05/05/2022 10:32 AM SCADA OPERATOR Plan of Treatment Health Maintenance Due Date Last Done Comments COLORECTAL SCREENING 2001 Colorectal Cancer Screening 2001 FIT-DNA Q 3 years 2001 FIT/FOBT Q 1 year 2001 Flex Sig/CT Colonography Q 5 years 2001 PNEUMOCOCCAL VACCINE 50+ YEA RS (1 of 1 - PCV) 2006 ZOSTER VACCINE (1 of 2) 2006 DTAP/TDAP/TD VACCINES (1 - Tdap) 09/30/2008 09/30/19 09 COVID-19 Vaccine (2 - season) 2024 INFLUENZA VACCINE (#1) 2025 , 05/18/2019, 04/23/2017 RSV VACCINE (60+ or ) (1 - 1-dose 75+ series) 2031 [id number] [place] [id number] [place] [address] DUAL COMPLETE O [facility] [id number] Care Teams Display Maker Relationship Specialty Start Date End Date Carolyn Ann MD NO ADDRESS ON FILE PCP - General 07/21/02
[2025-01-02 18:18] VITALS: BP 149/84; PULSE 83; TEMP 36.7; O2SAT 95
--- NOTE | 2025-01-02 18:34 | ECG_ITS ---
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 Measurements Intervals [place] Rate: 74 P: 39 LA: 202 QRS: -1 QRSD: 93 T: 25 QT: 348 QTc: 386 Interpretive Statements SINUS RHYTHM INTERPRETATION BASED ON A DEFAULT AGE OF 40 YEARS Compared to ECG 01/20/2024 07:26:30 T-wave abnormality no longer present Electronically Signed On 01-03-2025 20:20:19 CDT by Too Mirza M.D. [email or web address]
--- NOTE | 2025-01-02 18:38 | XRR_ITS ---
PROCEDURE INFORMATION: Exam: XR Chest Exam date and time: 01/02/2025 7:03 PM Age: 69 years old Clinical indication: Cough TECHNIQUE: Imaging protocol: Radiologic exam of the chest. Views: 1 view. COMPARISON: CR XR chest 2V* [id number] 02/09/2024 9:47 AM FINDINGS: Lungs: No overt pulmonary edema. Subtle linear opacities in the lung bases favor subsegmental atelectasis or possibly scar. No acute consolidation. Pleural spaces: Unremarkable. No pleural effusion. No pneumothorax. Heart/Mediastinum: Moderate size hiatal hernia. No cardiomegaly. Bones/joints: Unremarkable. XR/XR chest 1V portable [id number] IMPRESSION: Moderate-sized hiatal hernia. No acute consolidation or overt edema.
--- NOTE | 2025-01-02 18:38 | CTR_ITS ---
PROCEDURE INFORMATION: Exam: CT Head Without Contrast Exam date and time: 01/02/2025 6:45 PM Age: 69 years old Clinical indication: Weakness, extremity; Bilateral; Additional info: Tremor TECHNIQUE: Imaging protocol: Computed tomography of the head without contrast. Radiation optimization: All CT scans at this facility use at least one of these dose optimization techniques: automated exposure control; mA and/or kV adjustment per patient size (includes targeted exams where dose is matched to clinical indication); or iterative reconstruction. COMPARISON: MR head wo con* [id number] 09/09/2022 3:30 PM RADIATION DOSE METRICS: Total DLP (mGy-cm): 1181.98 FINDINGS: Brain: No acute infarction, hemorrhage, mass, or extra-axial fluid collection is identified. No midline shift. Cerebral ventricles: No hydrocephalus. Paranasal sinuses: Paranasal sinuses are grossly clear. Mastoid air cells: Mastoid air cells are grossly clear. Bones: Calvarium appears intact. Soft tissues: Unremarkable. CT/CT head wo con* [id number] IMPRESSION: No acute intracranial abnormality.
--- NOTE | 2025-01-02 18:41 | ED_ITS ---
HPI - Weakness 2 General: Chief complaint: Weakness Stated complaint: shaking, dizzy Time Seen by Provider: 01/02/25 18:27 History of Present Illness: Patient comes in with increased tremors and concern for stroke. States for the past 2 days he has had an increase in his normal upper extremity tremors. He states the tremors have been going on for decades since he got out of the . States over the past 2 days it has been worse and he was concerned might be having a stroke. He states he is also had some generalized weakness during that time. Denies any fever, vomiting. States he did have some diarrhea today. States he has a cough and some congestion but that is not new for him. Denies any new medications or [id number] supplements except for Benadryl. On physical exam he has resting tremor of his upper extremities. His NIHSS equals 0. Will check labs, CT head without IV contrast, give IV fluids, and reassess. Associated symptoms: Denies chest pain, fever(s), headache(s), nausea or vomiting Related Data Home Medications ?Medication ?Instructions ?Recorded ?Confirmed ibuprofen 800 mg tablet 800 mg PO TID PRN Pain 01/1904/05/24 levetiracetam 500 mg tablet 500 mg PO TID 01/20/2403/21 triamcinolone acetonide 0.5 % 1 applic topical DAILY P RN Skin 01/20/24 04/05/24 topical cream Irritation Previous Rx's ?Medication ?Instructions ?Recorded albuterol sulfate 90 mcg/actuation 2 inh inhalation Q4 H PRN shortness 01/20/24 aerosol inhaler of breath, cough or wheezing #18 grams carbamazepine 200 mg See Rx Instructions .Route 0 08/14/24 capsule,extended release [id number] .COMPLEX #120 caps Allergies Allergy/AdvReac Type Severity Reaction Status Date / Time No Known Allergies Allergy Verified 01/02/25 18:25 Review of Systems 2 Const: Denies: fever(s) or body aches ENMT: Denies: throat pain Card: Denies: chest pain or palpitations Resp: Denies: dyspnea or productive cough GI: Denies: abdominal pain, nausea or vomiting Musc: Denies: neck pain or back pain Neuro: Denies: headache(s) or numbness in extremities PFS ED 2 PFSH: Medical History (Updated 01/02/25 @ 19:56 by Hermes Levy MD) Inflammation of left sacroiliac joint Greater trochanteric bursitis of left hip Status epilepticus Altered mental status Breakthrough seizure NIGEL (acute kidney injury) Hypoxia Pneumonia Diarrhea Generalized seizure Migraine Family History Mother Dementia Social History Smoking and tobacco/nicotine status: never used tobacco/nicotine Alcohol intake: never Substance/Drug Use: never Physical Exam 2 Const: COMMON NORMALS: no acute distress HENMT: COMMON NORMALS: normocephalic and atraumatic HEAD & SCALP: n ormocephalic and atraumatic Eye: COMMON NORMALS: Equal, round and reactive pupils present and EOMs intact bilaterally PUPIL: Yes Equal, round and reactive pupils present Neck/C-Spine: COMMON NORMALS: full ROM and supple Resp: COMMON NORMALS: normal respiratory effort, No retractions and No use of accessory muscles Cardio: COMMON NORMALS: regular rate and regular rhythm RATE: regular rate RHYTHM: regular rhythm GI: COMMON NORMALS: Normal to inspection, nondistended, normoactive bowel sounds present, Soft to palpation and non-tender PALPATION: Yes Soft to palpation Extremity: COMMON NORMALS: normal to inspection and full ROM Neuro: OTHER: NIHSS equals 0 Resting tremor of bilateral upper extremities Skin: COMMON NORMALS: no rashes or lesions noted and no wounds GENERAL SKIN EXAM: no rashes or lesions noted Course 2 Vital Signs: Vital signs: Vital Signs Temperature 98.0 F 01/02/25 18:18 Pulse Rate 65 01/02/25 19:30 Blood Pressure 149/84 01/02/25 18:18 Pulse Oximetry 92 01/02/25 19:30 Oxygen Delivery Me thod Room Air 01/02/25 19:30 MDM - Weakness Medical Decision Making On reassessment I talked with the patient about his test results. He states he started taking Benadryl daily a week ago and since then has noticed increasing generalized fatigue and the worsening tremors of the last couple of days. Both of these are potential side effects of the Benadryl. I suspect this may be medication related. We did discuss symptoms that should prompt immediate return to the emergency department. He has an appoint with his primary care physician in the morning and I encouraged him to keep that appointment. Will discharge at this time with precautions to return for worsening or changing symptoms. Lab Data 01/02/25 19:07 01/02/25 19:07 Radiology Impressions Chest X-Ray 01/02/25 18:38 IMPRESSION: Moderate-sized hiatal hernia. No acute consolidation or overt edema. Head CT 01/02/25 18:38 IMPRESSION: No acute intracranial abnormality. Laboratory Results WBC 5.11 10^3/uL (3.29-11.43) 01/02/25 19:07 RBC 4.78 10^6/uL (3.85-5.65) 01/02/25 19:07 Hgb 13.40 g/dL (11.27-16.99) 01/02/25 19:07 Hct 41.3 % (37-53) 01/02/25 19:07 MCV 86.4 fl (82-101) 01/02/25 19:07 MCH 28.0 pg (27-33) 01/02/25 19:07 MCHC 32.4 g/dL (30-55) 01/02/25 19:07 RDW 13.4 % (12.1-15.1) 01/02/25 19:07 Plt Count 169 10^3/cmm (157-399) 01/02/25 19:07 MPV 10.4 fL (7.4-10.4) 01/02/25 19:07 Neut % (Auto) 65.5 % 01/02/25 19:07 Lymph % (Auto) 18.8 % 01/02/25 19:07 [place] % (Auto) 9.2 % 01/02/25 19:07 Eos % (Auto) 5.5 % 01/02/25 19:07 Baso % (Auto) 0.6 % 01/02/25 19:07 Neut # (Auto) 3.35 10^3/uL (1.8-7.7) 01/02/25 19:07 Lymph # (Auto) 1.0 10^3/uL (0.8-4.8) 01/02/25 19:07 [place] # (Auto) 0.5 10^3/uL (0.2-0.9) 01/02/25 19:07 Eos # (Auto) 0.3 10^3/uL (0.0-0.8) 01/02/25 19:07 Baso # (Auto) 0.0 10^3/uL (0.0-0.1) 01/02/25 19:07 Nucleated RBC % (auto) 0 % 01/02/25 19:07 Nucleated RBCs # 0.0 /100WBC 01/02/25 19:07 Sodium 136 mmol/L (136-145) 01/02/25 19:07 Potassium 4.2 mmol/L (3.5-5.1) 01/02/25 19:07 Chloride 103 mmol/L (98-107) 01/02/25 19:07 Carbon Dioxide 22 mmol/L (22-29) 01/02/25 19:07 Anion Gap 15.2 (5-19) 01/02/25 19:07 BUN 18 mg/dL (8-23) 01/02/25 19:07 Creatinine 1.1 mg/dL (0.7-1.2) 01/02/25 19:07 GFR Calculation 66.6 mL/min (90-130) L 01/02/25 19:07 Glucose 102 mg/dL (65-115) 01/02/25 19:07 POC Glucose 98 mg/dL (70-110) 01/02/25 19:10 Calculated Osmolality 284 mOsm/kg (285-295) L 01/02/25 19:07 Calcium 8.7 mg/dL (8.5-10.5) 01/02/25 19:07 Magnesium 2.1 mg/dL (1.7-2.3) 01/02/25 19:07 Total Bilirubin 0.4 mg/dL (0.15-1.2) 01/02/25 19:07 AST 22 U/L (0-40) 01/02/25 19:07 ALT 16 U/L (0-41) 01/02/25 19:07 Alkaline Phosphatase 79 U/L (40-130) 01/02/25 19:07 Total Protein 8.2 g/dL (6.6-8.7) 01/02/25 19:07 Albumin 4.1 g/dL (3.5-5.2) 01/02/25 19:07 Globulin 4.1 g/dL (1.3-4.6) 01/02/25 19:07 Amorphous Sediment Not Reportable 01/02/25 19:52 All radiology interpretation(s) finalized by discharge Discharge Plan Discharge Patient Disposition: Home Clinical Impression: Tremor, Medication adverse effect Condition: Stable Prescriptions: No Action carbamazepine 200 mg capsule, ER multiphase 12 hr See Rx Instructions .ROUTE .COMPLEX Qty: 120 0RF Dose Instruction: TAKE 2 CAPSULES BY MOUTH TWICE DAILY . APPOINTMENT REQUIRED FOR FUTURE REFILLS Rx Instructions: TAKE 2 CAPSULES BY MOUTH TWICE DAILY . APPOINTMENT REQUIRED FOR FUTURE REFILLS triamcinolone acetonide 0.5 % cream 1 applic TOPICAL DAILY PRN (Reason: Skin Irritation) ibuprofen 800 mg tablet 800 mg PO TID PRN (Reason: Pain) levetiracetam 500 mg tablet 500 mg PO TID albuterol sulfate 90 mcg/actuation HFA aerosol inhaler 2 inh INHALATION Q4H PRN (Reason: shortness of breath, cough or wheezing) Qty: 18 0RF Discharge Orders: Discharge ED (Routine); Ordered 01/02/25 Ordered By: Hermes Levy Referrals: Michael Chapman DO [Primary Care Provider, Family Practice] Patient Instructions: Tremors (ED), Patient Portal & Michelle Instructions Print Language: Namibian Coding Level of Care Code ED Communications Project Lead for Gabriel Clarke
[2025-01-02 19:11] VITALS: PULSE 68; O2SAT 92
[2025-01-02 19:23] LABS: Hematocrit 41.3 % (37-53); Hemoglobin 13.40 g/dL (11.27-16.99); Mean Corpuscular HGB Conc 32.4 g/dL (30-55); Mean Corpuscular Hemoglobin 28.0 pg (27-33); Mean Corpuscular Volume 86.4 fl (82-101); Nucleated Red Blood Cells % 0 %; Platelet Count 169 10^3/cmm (157-399); Red Blood Count 4.78 10^6/uL (3.85-5.65); White Blood Count 5.11 10^3/uL (3.29-11.43)
[2025-01-02 19:30] VITALS: PULSE 65; O2SAT 92
[2025-01-02 19:42] LABS: Alanine Aminotransferase 16 U/L (0-41); Albumin Level 4.1 g/dL (3.5-5.2); Alkaline Phosphatase 79 U/L (40-130); Anion Gap 15.2 (5-19); Aspartate Amino Transferase 22 U/L (0-40); Blood Urea Nitrogen 18 mg/dL (8-23); Calcium 8.7 mg/dL (8.5-10.5); Carbon Dioxide 22 mmol/L (22-29); Chloride 103 mmol/L (98-107); Creatinine Clr Calc Pharmacy 98.9775; Globulin 4.1 g/dL (1.3-4.6); Glucose 102 mg/dL (65-115); Magnesium 2.1 mg/dL (1.7-2.3); Osmolality Calculated 284 mOsm/kg (285-295); Potassium 4.2 mmol/L (3.5-5.1); Sodium 136 mmol/L (136-145); Total Protein 8.2 g/dL (6.6-8.7)
[2025-01-02 20:00] VITALS: BP 136/81; PULSE 66; O2SAT 91
[2025-01-02 20:00] LABS: Glucose Urine UA Negative (Normal); Nitrate Urine Negative (Negative); Specific Gravity, Urine 1.030 (1.005-1.030)
[2025-01-02 20:04] VITALS: BP 136/81; PULSE 66; O2SAT 92
[2025-01-02 20:05] LABS: Add Urine Microscopic? YES
== END 2025-01-02 20:10 | disposition home or self-care (01) ==
PROVIDERS: Emergency Provider Emergency Medicine; PCP Electrodiagnostic Medicine
DX: R25.1 Tremor, unspecified (principal); T45.0X5A Adverse effect of antiallergic and antiemetic drugs, initial encounter; X58.XXXA Exposure to other specified factors, initial encounter
CPT/HCPCS: 36415; 36416; 70450; 71045; 80053; 81001; 82962; 83735; 85025; 93005; 99285; J7030

== ENCOUNTER → 2025-01-08 09:50 | Outpatient (BNVA) | payer OTHER, MEDICAID, SELFPAY | PROVIDERS: PCP Electrodiagnostic Medicine; Visit Provider Nurse Practitioner Family | DX: L30.8 Other specified dermatitis (principal); L29.89 Other pruritus | CPT/HCPCS: 99213 ==

== ENCOUNTER → 2025-02-21 13:43 | Outpatient (BNVA) | payer OTHER, MEDICAID, SELFPAY | PROVIDERS: PCP Electrodiagnostic Medicine; Visit Provider Specialist | DX: R25.1 Tremor, unspecified (principal); G40.802 Other epilepsy, not intractable, without status epilepticus | CPT/HCPCS: 99215 ==

== ENCOUNTER 2025-03-16 13:40 | Outpatient (CLI) | payer OTHER, MEDICAID, SELFPAY ==
--- NOTE | 2025-03-16 13:45 | USCV_ITS ---
Jose Starr Age: 69 Gender: M : 1955 Exam Date: 03/16/2025 14:01 Ordering Phys: Joana Villarreal MD Technologist: Mann Head [place] [facility] [place]: transient cerebal ischemic attack Risk Factors: Previous Vascular Surgery: Right Brachial BP: / Left Brachial BP: / Right Left Velocity (cm/s) Spectral Plaque Velocity (cm/s) Spectral Plaque Syst/Diast Broadening Syst/Diast Broadening 76.30/ 20.60 Prox CCA 62.30 / 19.70 64.60/ 19.30 Mid CCA 55.20 / 18.30 46.50/ 14.10 Distal CCA 45.00 / 15.20 38.00/ 14.50 Prox ICA 43.60 / 13.90 55.60/ 23.30 Mid ICA 51.30 / 17.00 56.20/ 25.40 Distal ICA 56.40 / 21.80 63.00 ECA 132.10 0.80 ICA/CCA 1.00 Antegrade Vertebral Antegrade 11.50/ 2.90 cm/s 26.10/ 9.00 cm/s Tri Subclavian Tri 75.30 57.60 FINDINGS Comparison: none available. No significant elevation of systolic or diastolic velocities. Waveforms are normal. Mild carotid plaque. CONCLUSIONS Bilateral ICA stenosis less than 50%. Mild carotid plaque. Dr. Winifred Moses DO (Electronically Signed) Final Date: 16 March 2025 15:41 S
== END 2025-03-16 13:41 | disposition home or self-care (01) ==
LOC: RAD 13:41
PROVIDERS: PCP Electrodiagnostic Medicine; Visit Provider Specialist
DX: G45.9 Transient cerebral ischemic attack, unspecified (principal)
CPT/HCPCS: 93880

== ENCOUNTER → 2025-03-22 10:38 | Outpatient (BNVA) | payer OTHER, MEDICAID, SELFPAY | PROVIDERS: PCP Electrodiagnostic Medicine; Visit Provider Nurse Practitioner Family | DX: L30.4 Erythema intertrigo (principal); L29.89 Other pruritus; D48.5 Neoplasm of uncertain behavior of skin | CPT/HCPCS: 11102; 17110; 99214 ==

== ENCOUNTER → 2025-04-30 10:02 | Outpatient (BNVA) | payer OTHER, MEDICAID, SELFPAY | PROVIDERS: PCP Electrodiagnostic Medicine; Visit Provider Nurse Practitioner Family | DX: L30.9 Dermatitis, unspecified (principal); L98.1 Factitial dermatitis; L28.0 Lichen simplex chronicus | CPT/HCPCS: 11104; 99214 ==

== ENCOUNTER → 2025-05-14 10:09 | Outpatient (BNVA) | payer OTHER, MEDICAID, SELFPAY | PROVIDERS: PCP Electrodiagnostic Medicine; Visit Provider Nurse Practitioner Family | DX: S50.862A Insect bite (nonvenomous) of left forearm, initial encounter (principal); X58.XXXA Exposure to other specified factors, initial encounter; L81.0 Postinflammatory hyperpigmentation; D69.2 Other nonthrombocytopenic purpura; L30.4 Erythema intertrigo | CPT/HCPCS: 99214 ==

== ENCOUNTER → 2025-06-05 12:35 | Outpatient (BNVA) | payer OTHER, MEDICAID, SELFPAY | PROVIDERS: PCP Electrodiagnostic Medicine; Visit Provider Nurse Practitioner Family | DX: L29.89 Other pruritus (principal); S50.862A Insect bite (nonvenomous) of left forearm, initial encounter; S50.861A Insect bite (nonvenomous) of right forearm, initial encounter; S30.861A Insect bite (nonvenomous) of abdominal wall, initial encounter; S10.86XA Insect bite of other specified part of neck, initial encounter; T07.XXXA Unspecified multiple injuries, initial encounter | CPT/HCPCS: 99214 ==